=== PATIENT | male | born 1945 | race Caucasian/White ===

== ENCOUNTER 2017-02-13 13:17 | Outpatient (CLI) | payer MEDICARE, OTHER ==
[~2017-02-13] VITALS: Ht 180.3 cm; Wt 109.7 kg
[~2017-02-13 13:17] MED LIST: ACET325T49 PO; DOCU-143 PO; Docusate Sodium PO; ENOX30DI4 SC; IPRA3AMP INH; LACT20SO2 PO; Multivitamins/Minerals Therap PO; OXYC-471 PO; PANT40SU PO; POLY17PO23 PO; POLY17PO6 PO; SENN-20 PO
[2017-02-14] MEDS ORDERED: DOCU100C37 PO (16:18)
[2017-02-14] MEDS ORDERED: ACET-93 PO (16:18)
== END 2017-02-13 14:47 ==
LOC: PREOP 13:17
PROVIDERS: ATTEND Orthopaedic Surgery
DX: Z01.818 Encounter for other preprocedural examination (principal)

== ENCOUNTER 2017-02-14 09:48 | Day surgery (SDC) | payer MEDICARE, OTHER ==
[~2017-02-14] VITALS: Ht 180.3 cm; Wt 109.7 kg
--- NOTE | 2017-02-14 09:15 | HISTORY AND PHYSICAL ---
This will be for 24-hour observation on 02/14/2017 for left knee arthroscopy. HISTORY: The patient is a 71-year-old gentleman who underwent a left total knee arthroplasty 11 months ago. He had been doing well until the last few months when he began experiencing increasing pain. He presented to the office on 02/12/2017 with a slightly warm knee and pain with motion. His active range of motion is approximately 90 degrees of flexion but he reports the pain has been progressive. He denies any systemic illnesses but had had a tooth abscess which required extraction the 04 of October. He was treated with antibiotics at that point, but otherwise has had no illnesses requiring antibiotic treatment. He denies fever, chills, or night sweats. He reports increasing pain. He underwent laboratory assessment which revealed a white blood cell count. His ESR was slightly elevated at 23. His C-reactive protein was 2.1. An aspirate was obtained of the knee which demonstrated bloody fluid. The white count on differential with only 2000. His Gram stain revealed no organisms was scant white blood cells. No crystals were seen in the fluid either. Due to increasing pain; however, it was recommended that the patient undergo irrigation and debridement, possible polyethylene exchange and possible hardware removal. This was counseled to the patient and his family. They understand and wish to proceed. REVIEW OF SYSTEMS: As above. PAST MEDICAL HISTORY: Head injury. MEDICATIONS: Tylenol. ALLERGIES: No known drug allergies. PRIMARY CARE PROVIDER: Dr. Rinaldi. FAMILY HISTORY: Noncontributory. SOCIAL HISTORY: The patient is a former smoker with a 30 pack-year history. Denies alcohol use. PHYSICAL EXAMINATION: The patient's well-developed, well-nourished, in no acute distress. HEENT: Normocephalic, atraumatic. Pupils are equal, round, and reactive to light. Oropharynx is clear. NECK: Supple with no lymphadenopathy. LUNGS: Clear to auscultation bilaterally. HEART: Regular rate and rhythm. ABDOMEN: Soft, nontender, nondistended. EXTREMITY EXAM: Left knee demonstrates slight effusion. There was mild warmth. No erythema. The incision is well healed. He has pain with active and passive knee range of motion, actively his range of motion is 0/0/90. He has no pain with hip motion. negative straight leg raise. IMPRESSION: Possible low-grade left total knee arthroplasty, septic arthritis. PLAN: Left knee irrigation and debridement arthroscopically versus open with possible hardware removal. The risks, benefits, options, ramifications and recovery were discussed at length with the patient and his family. They understand and wish to proceed. Job ID: [id number] Dictated Date: 02/13/2017 12:35:17 Act Tutor Date: 02/14/2017 09:01:53/abilio
--- OUTSIDE RECORDS SUMMARY | 2017-02-14 09:52 | XMS REPORT | Continuity of Care Document ---
Author Author [facility] Organization [facility] Address Unknown Phone Unavailable Allergies Active Description Code Type Severity Reaction Onset Reported/Identified Relationship to Patient Clinical Status Yes No Known Drug Allergies [id number] Drug Allergy Unknown N/ A 03/22/2016 Medications Problems Date Dx Coded Attending Type Code Diagnosis Diagnosed By 04/03/2012 Ot 780.2 SYNCOPE AND COLLAPSE 07/12/2014 Ot 780.2 07/12/2014 Ot 780.2 07/12/2014 Ot 780.2 07/15/2014 JESÚS CALABRESE MD Ot 276.51 DEHYDRATION 07/15/2014 JESÚS CALABRESE MD Ot 558.9 NONINF GASTROENTERIT NEC 07/15/2014 JESÚS CALABRESE MD Ot 560.32 FECAL IMPACTION 07/15/2014 JESÚS CALABRESE MD Ot 560.9 INTESTINAL OBSTRUCT NOS 07/15/2014 JESÚS CALABRESE MD Ot 793.11 SOLITARY PULMONARY NODULE 07/15/2014 JESÚS CALABRESE MD Ot V03.82 PROPHYLACTIC VACC AGAINST STREPTOCOCCUS 07/15/2014 JESÚS CALABRESE MD Ot V04.81 ND FOR PROPHYLACTIC VACCIN AND INOCULATI 07/15/2014 JESÚS CALABRESE MD Ot V12.59 HX-CIRCULATORY SYST DIS,NEC 07/15/2014 JESÚS CALABRESE MD Ot V15.52 PERSONAL HISTORY OF TRAUMATIC BRAIN INJU 07/15/2014 JESÚS CALABRESE MD Ot V15.82 HISTORY OF TOBACCO USE 08/19/2014 Ot 780.2 09/14/2014 Ot 780.2 10/20/2014 Ot 211.3 BENIGN NEOPLASM LG BOWEL 10/20/2014 Ot V76.51 SCREEN MAL NEOP-COLON 03/13/2016 Ot 780.2 SYNCOPE AND COLLAPSE 03/13/2016 Ot V72.84 EXAM PRE-OPERATIVE NOS 03/15/2016 NIA BULLARD, POP [place] Ot M17.12 UNILATERAL PRIMARY OSTEOARTHRITIS, LEFT 03/15/2016 POP KRAMER MD Ot R53.83 OTHER FATIGUE 03/15/2016 POP KRAMER MD Ot Z01.810 ENCOUNTER FOR PREPROCEDURAL CARDIOVASCUL 03/15/2016 POP KRAMER MD Ot Z01.811 ENCOUNTER FOR PREPROCEDURAL RESPIRATORY 03/15/2016 POP KRAMER MD Ot Z01.812 ENCOUNTER FOR PREPROCEDURAL LABORATORY E 03/15/2016 POP KRAMER MD Ot Z11.2 ENCOUNTER FOR SCREENING FOR OTHER BACTER 03/15/2016 POP KRAMER MD Ot Z01.812 ENCOUNTER FOR PREPROCEDURAL LABORATORY E 03/16/2016 POP KRAMER MD Ot M17.12 UNILATERAL PRIMARY OSTEOARTHRITIS, LEFT 03/16/2016 POP KRAMER MD Ot R53.83 OTHER FATIGUE 03/16/2016 POP KRAMER MD Ot Z01.810 ENCOUNTER FOR PREPROCEDURAL CARDIOVASCUL 03/16/2016 POP KRAMER MD Ot Z01.811 ENCOUNTER FOR PREPROCEDURAL RESPIRATORY 03/16/2016 POP KRAMER MD Ot Z01.812 ENCOUNTER FOR PREPROCEDURAL LABORATORY E 03/16/2016 POP KRAMER MD Ot Z11.2 ENCOUNTER FOR SCREENING FOR OTHER BACTER 03/20/2016 Ot 780.2 SYNCOPE AND COLLAPSE 03/20/2016 Ot V72.84 EXAM PRE-OPERATIVE NOS 03/22/2016 Ot 780.2 SYNCOPE AND COLLAPSE 03/24/2016 POP KRAMER MD Ot E66.9 OBESITY, UNSPECIFIED 03/24/2016 POP KRAMER MD Ot I10 ESSENTIAL (PRIMARY) HYPERTENSION 03/24/2016 POP KRAMER MD Ot J44.9 CHRONIC OBSTRUCTIVE PULMONARY DISEASE, U 03/24/2016 POP KRAMER MD Ot M17.12 UNILATERAL PRIMARY OSTEOARTHRITIS, LEFT 03/24/2016 POP KRAMER MD Ot R33.9 RETENTION OF URINE, UNSPECIFIED 03/24/2016 POP KRAMER MD Ot R79.0 ABNORMAL LEVEL OF BLOOD MINERAL 03/24/2016 POP KRAMER MD Ot Z68.36 BODY MASS INDEX (BMI) 36.0-36.9, ADULT 03/24/2016 POP KRAMER MD Ot Z87.19 PERSONAL HISTORY OF OTHER DISEASES OF TH 03/24/2016 POP KRAMER MD, Ot Z87.820 PERSONAL HISTORY OF TRAUMATIC BRAIN INJU 03/24/2016 POP KRAMER MD Ot Z87.891 PERSONAL HISTORY OF NICOTINE DEPENDENCE 04/01/2016 BUCK SAUCEDO MD Ot G47.33 OBSTRUCTIVE SLEEP APNEA (ADULT) (PEDIATR 04/01/2016 BUCK SAUCEDO MD Ot J44.9 CHRONIC OBSTRUCTIVE PULMONARY DISEASE, U 04/01/2016 BUCK SAUCEDO MD Ot K59.09 OTHER CONSTIPATION 04/01/2016 BUCK SAUCEDO MD Ot R41.89 OTH SYMPTOMS AND SIGNS W COGNITIVE FUNCT 04/01/2016 BUCK SAUCEDO MD Ot S06.5X9S TRAUM SUBDR HEM W LOC OF UNSP DURATION, 04/01/2016 BUCK SAUCEDO MD Ot Z47.1 AFTERCARE FOLLOWING JOINT REPLACEMENT ROBISON 04/01/2016 BUCK SAUCEDO MD Ot Z87.891 PERSONAL HISTORY OF NICOTINE DEPENDENCE 04/01/2016 BUCK SAUCEDO MD Ot Z96.652 PRESENCE OF LEFT ARTIFICIAL KNEE JOINT 04/04/2016 BUCK SAUCEDO MD Ot G47.33 OBSTRUCTIVE SLEEP APNEA (ADULT) (PEDIATR 04/04/2016 BUCK SAUCEDO MD Ot J44.9 CHRONIC OBSTRUCTIVE PULMONARY DISEASE, U 04/04/2016 BUCK SAUCEDO MD Ot K59.09 OTHER CONSTIPATION 04/04/2016 BUCK SAUCEDO MD Ot R41.89 OTH SYMPTOMS AND SIGNS W COGNITIVE FUNCT 04/04/2016 BUCK SAUCEDO MD Ot S06.5X9S TRAUM SUBDR HEM W LOC OF UNSP DURATION, 04/04/2016 BUCK SAUCEDO MD Ot Z47.1 AFTERCARE FOLLOWING JOINT REPLACEMENT ROBISON 04/04/2016 BUCK SAUCEDO MD Ot Z87.891 PERSONAL HISTORY OF NICOTINE DEPENDENCE 04/04/2016 BUCK SAUCEDO MD Ot Z96.652 PRESENCE OF LEFT ARTIFICIAL KNEE JOINT 04/04/2016 BUCK SAUCEDO MD Ot G47.33 OBSTRUCTIVE SLEEP APNEA (ADULT) (PEDIATR 04/04/2016 BUCK SAUCEDO MD Ot J44.9 CHRONIC OBSTRUCTIVE PULMONARY DISEASE, U 04/04/2016 BUCK SAUCEDO MD Ot K59.09 OTHER CONSTIPATION 04/04/2016 BUCK SAUCEDO MD Ot R41.89 OTH SYMPTOMS AND SIGNS W COGNITIVE FUNCT 04/04/2016 BUCK SAUCEDO MD Ot S06.5X9S TRAUM SUBDR HEM W LOC OF UNSP DURATION, 04/04/2016 BUCK SAUCEDO MD Ot Z47.1 AFTERCARE FOLLOWING JOINT REPLACEMENT ROBISON 04/04/2016 BUCK SAUCEDO MD Ot Z87.891 PERSONAL HISTORY OF NICOTINE DEPENDENCE 04/04/2016 BUCK SAUCEDO MD Ot Z96.652 PRESENCE OF LEFT ARTIFICIAL KNEE JOINT 04/04/2016 BUCK SAUCEDO MD Ot G47.33 OBSTRUCTIVE SLEEP APNEA (ADULT) (PEDIATR 04/04/2016 BUCK SAUCEDO MD Ot J44.9 CHRONIC OBSTRUCTIVE PULMONARY DISEASE, U 04/04/2016 BUCK SAUCEDO MD Ot K59.09 OTHER CONSTIPATION 04/04/2016 BUCK SAUCEDO MD Ot R41.89 OTH SYMPTOMS AND SIGNS W COGNITIVE FUNCT 04/04/2016 BCUK SAUCEDO MD Ot S06.5X9S TRAUM SUBDR HEM W LOC OF UNSP DURATION, 04/04/2016 BUCK SAUCEDO MD Ot Z47.1 AFTERCARE FOLLOWING JOINT REPLACEMENT ROBISON 04/04/2016 BUCK SAUCEDO MD Ot Z87.891 PERSONAL HISTORY OF NICOTINE DEPENDENCE 04/04/2016 BUCK SAUCEDO MD Ot Z96.652 PRESENCE OF LEFT ARTIFICIAL KNEE JOINT 04/07/2016 BUCK SAUCEDO MD Ot G47.33 OBSTRUCTIVE SLEEP APNEA (ADULT) (PEDIATR 04/07/2016 BUCK SAUCEDO MD Ot J44.9 CHRONIC OBSTRUCTIVE PULMONARY DISEASE, U 04/07/2016 BUCK SAUCEDO MD Ot K59.09 OTHER CONSTIPATION 04/07/2016 BUCK SAUCEDO MD Ot R41.89 OTH SYMPTOMS AND SIGNS W COGNITIVE FUNCT 04/07/2016 BUCK SAUCEDO MD Ot S06.5X9S TRAUM SUBDR HEM W LOC OF UNSP DURATION, 04/07/2016 BUCK SAUCEDO MD Ot Z47.1 AFTERCARE FOLLOWING JOINT REPLACEMENT ROBISON 04/07/2016 BUCK SAUCEDO MD Ot Z87.891 PERSONAL HISTORY OF NICOTINE DEPENDENCE 04/07/2016 BUCK SAUCEDO MD Ot Z96.652 PRESENCE OF LEFT ARTIFICIAL KNEE JOINT 04/07/2016 BUCK SAUCEDO MD Ot D64.9 ANEMIA, UNSPECIFIED 04/07/2016 BUCK SAUCEDO MD Ot G47.33 OBSTRUCTIVE SLEEP APNEA (ADULT) (PEDIATR 04/07/2016 BUCK SAUCEDO MD, Ot J44.9 CHRONIC OBSTRUCTIVE PULMONARY DISEASE, U 04/07/2016 BUCK SAUCEDO MD, Ot K56.60 UNSPECIFIED INTESTINAL OBSTRUCTION 04/07/2016 BUCK SAUCEDO MD, Ot K59.09 OTHER CONSTIPATION 04/07/2016 BUCK SAUCEDO MD, Ot R41.89 OTH SYMPTOMS AND SIGNS W COGNITIVE FUNCT 04/07/2016 BUCK SAUCEDO MD, Ot S06.5X9S TRAUM SUBDR HEM W LOC OF UNSP DURATION, 04/07/2016 BUCK SAUCEDO MD, Ot Z47.1 AFTERCARE FOLLOWING JOINT REPLACEMENT ROBISON 04/07/2016 BUCK SAUCEDO MD, Ot Z87.891 PERSONAL HISTORY OF NICOTINE DEPENDENCE 04/07/2016 BUCK SAUCEDO MD, Ot Z96.652 PRESENCE OF LEFT ARTIFICIAL KNEE JOINT 04/26/2016 Ot 780.2 SYNCOPE AND COLLAPSE 04/26/2016 Ot V72.84 EXAM PRE-OPERATIVE NOS Procedures Code Description Performed By Performed On 96.38 07/12/2014 [id number] 03/22/2016 Results Test Result Range Complete blood count (CBC) with automated white blood cell (WBC) differential - 03/15/16 10:35 Blood leukocytes automated count (number/volume) 9.3 10*3/ uL 4.3-11.0 Blood erythrocytes automated count (number/volume) 4.88 10*6 /uL 4.35-5.85 Venous blood hemoglobin measurement (mass/volume) 14.0 g/dL 13.3-17.7 Blood hematocrit (volume fraction) 42 % 40-54 Automated erythrocyte mean corpuscular volume 86 [foz_us] 80-99 Automated erythrocyte mean corpuscular hemoglobin (mass per erythrocyte) 29 pg 25-34 Automated erythrocyte mean corpuscular hemoglobin concentration measurement ( mass/volume) 33 g/dL 32-36 Automated erythrocyte distribution width ratio 15.5 % 10.0-14.5 Automated blood platelet count (count/volume) 259 10*3/uL 130-400 Automated blood platelet mean volume measurement 11.9 [foz_ us] 7.4-10.4 Automated blood neutrophils/100 leukocytes 65 % 42-75 Automated blood lymphocytes/100 leukocytes 24 % 12-44 Blood monocytes/100 leukocytes 11 % 0-12 Automated blood eosinophils/100 leukocytes 1 % 0-10 Automated blood basophils/100 leukocytes 1 % 0-10 Blood neutrophils automated count (number/volume) 6.0 10*3 1.8-7.8 Blood lymphocytes automated count (number/volume) 2.2 10*3 1.0-4.0 Blood monocytes automated count (number/volume) 1.0 10*3 0.0-1.0 Automated eosinophil count 0.1 10*3/uL 0.0-0.3 Automated blood basophil count (count/volume) 0.1 10*3/uL 0.0-0.1 Complete urinalysis with reflex to culture - 03/15/16 10:35 Urine color determination YELLOW NRG Urine clarity determination CLEAR NRG Urine pH measurement by test strip 5 5- 9 Specific gravity of urine by test strip 1.020 1.016-1.022 Urine protein assay by test strip, semi-quantitative NEGATIVE NEGATIVE Urine glucose detection by automated test strip NEGATIVE NEGATIVE Erythrocytes detection in urine sediment by light microscopy NEGATIVE NEGATIVE Urine ketones detection by automated test strip NEGATIVE NEGATIVE Urine nitrite detection by test strip NEGATIVE NEGATIVE Urine total bilirubin detection by test strip NEGATIVE NEGATIVE Urine urobilinogen measurement by automated test strip (mass/volume) NORMAL NORMAL Urine leukocyte esterase detection by dipstick 1+ NEGATIVE Automated urine sediment erythrocyte count by microscopy (number/high power field) NONE NRG Automated urine sediment leukocyte count by microscopy (number/high power field ) [HPF] NRG Bacteria detection in urine sediment by light microscopy NEGATIVE NRG Squamous epithelial cells detection in urine sediment by light microscopy RARE NRG Crystals detection in urine sediment by light microscopy NONE NRG Casts detection in urine sediment by light microscopy NONE NRG Mucus detection in urine sediment by light microscopy NEGATIVE NRG Complete urinalysis with reflex to culture NO NRG PT panel in platelet poor plasma by coagulation assay - 03/15/16 10:35 Prothrombin time (PT) in platelet poor plasma by coagulation assay 13.2 s 12.2-14.7 INR in platelet poor plasma or blood by coagulation assay 1.0 0.8-1.4 Comprehensive metabolic panel - 03/15/16 10:35 Serum or plasma sodium measurement (moles/volume) 138 mmol/ L 135-145 Serum or plasma potassium measurement (moles/volume) 4.1 mmol/L 3.6-5.0 Serum or plasma chloride measurement (moles/volume) 109 mmol /L 98-107 Carbon dioxide 21 mmol/L 21-32 Serum or plasma anion gap determination (moles/volume) 8 mmol/L 5-14 Serum or plasma urea nitrogen measurement (mass/volume) 18 mg/dL 7-18 Serum or plasma creatinine measurement (mass/volume) 1.18 mg /dL 0.60-1.30 Serum or plasma urea nitrogen/creatinine mass ratio 15 NRG Serum or plasma creatinine measurement with calculation of estimated glomerular filtration rate > NRG Serum or plasma glucose measurement (mass/volume) 91 mg/dL 70-105 Serum or plasma calcium measurement (mass/volume) 8.8 mg/dL 8.5-10.1 Serum or plasma total bilirubin measurement (mass/volume) 0.4 mg/dL 0.1-1.0 Serum or plasma alkaline phosphatase measurement (enzymatic activity/volume) 92 U/L 40-136 Serum or plasma aspartate aminotransferase measurement (enzymatic activity/ volume) 16 U/L 5-34 Serum or plasma alanine aminotransferase measurement (enzymatic activity/volume ) 16 U/L 0-55 Serum or plasma protein measurement (mass/volume) 7.2 g/dL 6.4-8.2 Serum or plasma albumin measurement (mass/volume) 4.1 g/dL 3.2-4.5 Erythrocyte sedimentation rate by westergren method - 03/15/16 10:35 Erythrocyte sedimentation rate by westergren method 8 mm 0-30 Blood type T Indirect antibody screen panel - 03/15/16 10:35 ABO+Rh group AP NRG Blood group antibody screen NEGATIVE NRG Methicillin resistant Staphylococcus aureus (MRSA) screening culture - 10:35 Methicillin resistant Staphylococcus aureus (MRSA) screening culture NEG NRG Blood type T Indirect antibody screen panel - 03/22/16 06:20 ABO+Rh group AP NRG Transfusion band number [id number] NRG Blood group antibody screen NEGATIVE NRG Complete blood count (CBC) with automated white blood cell (WBC) differential - 03/23/16 04:55 Blood leukocytes automated count (number/volume) 10.0 10*3/ uL 4.3-11.0 Blood erythrocytes automated count (number/volume) 4.10 10*6 /uL 4.35-5.85 Venous blood hemoglobin measurement (mass/volume) 11.8 g/dL 13.3-17.7 Blood hematocrit (volume fraction) 36 % 40-54 Automated erythrocyte mean corpuscular volume 89 [foz_us] 80-99 Automated erythrocyte mean corpuscular hemoglobin (mass per erythrocyte) 29 pg 25-34 Automated erythrocyte mean corpuscular hemoglobin concentration measurement ( mass/volume) 33 g/dL 32-36 Automated erythrocyte distribution width ratio 15.9 % 10.0-14.5 Automated blood platelet count (count/volume) 210 10*3/uL 130-400 Automated blood platelet mean volume measurement 11.8 [foz_ us] 7.4-10.4 Automated blood neutrophils/100 leukocytes 71 % 42-75 Automated blood lymphocytes/100 leukocytes 12 % 12-44 Blood monocytes/100 leukocytes 18 % 0-12 Automated blood eosinophils/100 leukocytes 0 % 0-10 Automated blood basophils/100 leukocytes 0 % 0-10 Blood neutrophils automated count (number/volume) 7.1 10*3 1.8-7.8 Blood lymphocytes automated count (number/volume) 1.2 10*3 1.0-4.0 Blood monocytes automated count (number/volume) 1.8 10*3 0.0-1.0 Automated eosinophil count 0.0 10*3/uL 0.0-0.3 Automated blood basophil count (count/volume) 0.0 10*3/uL 0.0-0.1 Comprehensive metabolic panel - 03/23/16 04:55 Serum or plasma sodium measurement (moles/volume) 136 mmol/ L 135-145 Serum or plasma potassium measurement (moles/volume) 4.2 mmol/L 3.6-5.0 Serum or plasma chloride measurement (moles/volume) 106 mmol /L 98-107 Carbon dioxide 22 mmol/L 21-32 Serum or plasma anion gap determination (moles/volume) 8 mmol/L 5-14 Serum or plasma urea nitrogen measurement (mass/volume) 16 mg/dL 7-18 Serum or plasma creatinine measurement (mass/volume) 1.07 mg /dL 0.60-1.30 Serum or plasma urea nitrogen/creatinine mass ratio 15 NRG Serum or plasma creatinine measurement with calculation of estimated glomerular filtration rate > NRG Serum or plasma glucose measurement (mass/volume) 115 mg/dL 70-105 Serum or plasma calcium measurement (mass/volume) 8.1 mg/dL 8.5-10.1 Serum or plasma total bilirubin measurement (mass/volume) 0.8 mg/dL 0.1-1.0 Serum or plasma alkaline phosphatase measurement (enzymatic activity/volume) 77 U/L 40-136 Serum or plasma aspartate aminotransferase measurement (enzymatic activity/ volume) 16 U/L 5-34 Serum or plasma alanine aminotransferase measurement (enzymatic activity/volume ) 10 U/L 0-55 Serum or plasma protein measurement (mass/volume) 6.4 g/dL 6.4-8.2 Serum or plasma albumin measurement (mass/volume) 3.6 g/dL 3.2-4.5 Serum or plasma iron measurement (mass/volume) - 03/23/16 04:55 Serum or plasma iron measurement (mass/volume) 28 ug/dL 50-175 Complete blood count (CBC) with automated white blood cell (WBC) differential - 03/24/16 06:10 Blood leukocytes automated count (number/volume) 10.9 10*3/ uL 4.3-11.0 Blood erythrocytes automated count (number/volume) 3.82 10*6 /uL 4.35-5.85 Venous blood hemoglobin measurement (mass/volume) 11.0 g/dL 13.3-17.7 Blood hematocrit (volume fraction) 34 % 40-54 Automated erythrocyte mean corpuscular volume 88 [foz_us] 80-99 Automated erythrocyte mean corpuscular hemoglobin (mass per erythrocyte) 29 pg 25-34 Automated erythrocyte mean corpuscular hemoglobin concentration measurement ( mass/volume) 33 g/dL 32-36 Automated erythrocyte distribution width ratio 15.8 % 10.0-14.5 Automated blood platelet count (count/volume) 196 10*3/uL 130-400 Automated blood platelet mean volume measurement 12.1 [foz_ us] 7.4-10.4 Automated blood neutrophils/100 leukocytes 68 % 42-75 Automated blood lymphocytes/100 leukocytes 14 % 12-44 Blood monocytes/100 leukocytes 17 % 0-12 Automated blood eosinophils/100 leukocytes 1 % 0-10 Automated blood basophils/100 leukocytes 0 % 0-10 Blood neutrophils automated count (number/volume) 7.4 10*3 1.8-7.8 Blood lymphocytes automated count (number/volume) 1.6 10*3 1.0-4.0 Blood monocytes automated count (number/volume) 1.8 10*3 0.0-1.0 Automated eosinophil count 0.1 10*3/uL 0.0-0.3 Automated blood basophil count (count/volume) 0.0 10*3/uL 0.0-0.1 Comprehensive metabolic panel - 03/24/16 06:10 Serum or plasma sodium measurement (moles/volume) 135 mmol/ L 135-145 Serum or plasma potassium measurement (moles/volume) 3.8 mmol/L 3.6-5.0 Serum or plasma chloride measurement (moles/volume) 105 mmol /L 98-107 Carbon dioxide 22 mmol/L 21-32 Serum or plasma anion gap determination (moles/volume) 8 mmol/L 5-14 Serum or plasma urea nitrogen measurement (mass/volume) 12 mg/dL 7-18 Serum or plasma creatinine measurement (mass/volume) 0.96 mg /dL 0.60-1.30 Serum or plasma urea nitrogen/creatinine mass ratio 13 NRG Serum or plasma creatinine measurement with calculation of estimated glomerular filtration rate > NRG Serum or plasma glucose measurement (mass/volume) 105 mg/dL 70-105 Serum or plasma calcium measurement (mass/volume) 8.2 mg/dL 8.5-10.1 Serum or plasma total bilirubin measurement (mass/volume) 0.9 mg/dL 0.1-1.0 Serum or plasma alkaline phosphatase measurement (enzymatic activity/volume) 75 U/L 40-136 Serum or plasma aspartate aminotransferase measurement (enzymatic activity/ volume) 18 U/L 5-34 Serum or plasma alanine aminotransferase measurement (enzymatic activity/volume ) 16 U/L 0-55 Serum or plasma protein measurement (mass/volume) 5.9 g/dL 6.4-8.2 Serum or plasma albumin measurement (mass/volume) 3.3 g/dL 3.2-4.5 Complete blood count (CBC) with automated white blood cell (WBC) differential - 04/01/16 15:10 Blood leukocytes automated count (number/volume) 13.4 10*3/ uL 4.3-11.0 Blood erythrocytes automated count (number/volume) 4.31 10*6 /uL 4.35-5.85 Venous blood hemoglobin measurement (mass/volume) 12.4 g/dL 13.3-17.7 Blood hematocrit (volume fraction) 38 % 40-54 Automated erythrocyte mean corpuscular volume 88 [foz_us] 80-99 Automated erythrocyte mean corpuscular hemoglobin (mass per erythrocyte) 29 pg 25-34 Automated erythrocyte mean corpuscular hemoglobin concentration measurement ( mass/volume) 33 g/dL 32-36 Automated erythrocyte distribution width ratio 15.7 % 10.0-14.5 Automated blood platelet count (count/volume) 493 10*3/uL 130-400 Automated blood platelet mean volume measurement 10.3 [foz_ us] 7.4-10.4 Automated blood neutrophils/100 leukocytes 81 % 42-75 Automated blood lymphocytes/100 leukocytes 8 % 12-44 Blood monocytes/100 leukocytes 11 % 0-12 Automated blood eosinophils/100 leukocytes 0 % 0-10 Automated blood basophils/100 leukocytes 0 % 0-10 Blood neutrophils automated count (number/volume) 10.8 10*3 1.8-7.8 Blood lymphocytes automated count (number/volume) 1.1 10*3 1.0-4.0 Blood monocytes automated count (number/volume) 1.5 10*3 0.0-1.0 Automated eosinophil count 0.0 10*3/uL 0.0-0.3 Automated blood basophil count (count/volume) 0.0 10*3/uL 0.0-0.1 Comprehensive metabolic panel - 04/01/16 15:10 Serum or plasma sodium measurement (moles/volume) 139 mmol/ L 135-145 Serum or plasma potassium measurement (moles/volume) 4.7 mmol/L 3.6-5.0 Serum or plasma chloride measurement (moles/volume) 102 mmol /L 98-107 Carbon dioxide 26 mmol/L 21-32 Serum or plasma anion gap determination (moles/volume) 11 mmol/L 5-14 Serum or plasma urea nitrogen measurement (mass/volume) 23 mg/dL 7-18 Serum or plasma creatinine measurement (mass/volume) 1.05 mg /dL 0.60-1.30 Serum or plasma urea nitrogen/creatinine mass ratio 22 NRG Serum or plasma creatinine measurement with calculation of estimated glomerular filtration rate > NRG Serum or plasma glucose measurement (mass/volume) 124 mg/dL 70-105 Serum or plasma calcium measurement (mass/volume) 9.6 mg/dL 8.5-10.1 Serum or plasma total bilirubin measurement (mass/volume) 0.8 mg/dL 0.1-1.0 Serum or plasma alkaline phosphatase measurement (enzymatic activity/volume) 86 U/L 40-136 Serum or plasma aspartate aminotransferase measurement (enzymatic activity/ volume) 27 U/L 5-34 Serum or plasma alanine aminotransferase measurement (enzymatic activity/volume ) 76 U/L 0-55 Serum or plasma protein measurement (mass/volume) 7.5 g/dL 6.4-8.2 Serum or plasma albumin measurement (mass/volume) 3.8 g/dL 3.2-4.5 Magnesium - 04/01/16 15:10 Magnesium 2.5 mg/dL 1.8-2.4 Whole blood basic metabolic panel - 04/02/16 06:14 Serum or plasma sodium measurement (moles/volume) 142 mmol/ L 135-145 Serum or plasma potassium measurement (moles/volume) 4.5 mmol/L 3.6-5.0 Serum or plasma chloride measurement (moles/volume) 107 mmol /L 98-107 Carbon dioxide 22 mmol/L 21-32 Serum or plasma anion gap determination (moles/volume) 13 mmol/L 5-14 Serum or plasma urea nitrogen measurement (mass/volume) 25 mg/dL 7-18 Serum or plasma creatinine measurement (mass/volume) 1.04 mg /dL 0.60-1.30 Serum or plasma urea nitrogen/creatinine mass ratio 24 NRG Serum or plasma creatinine measurement with calculation of estimated glomerular filtration rate > NRG Serum or plasma glucose measurement (mass/volume) 121 mg/dL 70-105 Serum or plasma calcium measurement (mass/volume) 8.8 mg/dL 8.5-10.1 Automated blood complete blood count (hemogram) panel - 04/02/16 06:14 Blood leukocytes automated count (number/volume) 13.6 10*3/ uL 4.3-11.0 Blood erythrocytes automated count (number/volume) 4.36 10*6 /uL 4.35-5.85 Venous blood hemoglobin measurement (mass/volume) 12.5 g/dL 13.3-17.7 Blood hematocrit (volume fraction) 38 % 40-54 Automated erythrocyte mean corpuscular volume 87 [foz_us] 80-99 Automated erythrocyte mean corpuscular hemoglobin (mass per erythrocyte) 29 pg 25-34 Automated erythrocyte mean corpuscular hemoglobin concentration measurement ( mass/volume) 33 g/dL 32-36 Automated erythrocyte distribution width ratio 15.7 % 10.0-14.5 Automated blood platelet count (count/volume) 228 10*3/uL 130-400 Automated blood platelet mean volume measurement 11.3 [foz_ us] 7.4-10.4 Complete blood count (CBC) with automated white blood cell (WBC) differential - 04/03/16 06:18 Blood leukocytes automated count (number/volume) 9.9 10*3/ uL 4.3-11.0 Blood erythrocytes automated count (number/volume) 3.79 10*6 /uL 4.35-5.85 Venous blood hemoglobin measurement (mass/volume) 11.0 g/dL 13.3-17.7 Blood hematocrit (volume fraction) 34 % 40-54 Automated erythrocyte mean corpuscular volume 90 [foz_us] 80-99 Automated erythrocyte mean corpuscular hemoglobin (mass per erythrocyte) 29 pg 25-34 Automated erythrocyte mean corpuscular hemoglobin concentration measurement ( mass/volume) 32 g/dL 32-36 Automated erythrocyte distribution width ratio 15.8 % 10.0-14.5 Automated blood platelet count (count/volume) 359 10*3/uL 130-400 Automated blood platelet mean volume measurement 11.0 [foz_ us] 7.4-10.4 Automated blood neutrophils/100 leukocytes 70 % 42-75 Automated blood lymphocytes/100 leukocytes 16 % 12-44 Blood monocytes/100 leukocytes 13 % 0-12 Automated blood eosinophils/100 leukocytes 1 % 0-10 Automated blood basophils/100 leukocytes 0 % 0-10 Blood neutrophils automated count (number/volume) 6.9 10*3 1.8-7.8 Blood lymphocytes automated count (number/volume) 1.6 10*3 1.0-4.0 Blood monocytes automated count (number/volume) 1.3 10*3 0.0-1.0 Automated eosinophil count 0.1 10*3/uL 0.0-0.3 Automated blood basophil count (count/volume) 0.0 10*3/uL 0.0-0.1 Comprehensive metabolic panel - 04/03/16 06:18 Serum or plasma sodium measurement (moles/volume) 143 mmol/ L 135-145 Serum or plasma potassium measurement (moles/volume) 4.0 mmol/L 3.6-5.0 Serum or plasma chloride measurement (moles/volume) 112 mmol /L 98-107 Carbon dioxide 21 mmol/L 21-32 Serum or plasma anion gap determination (moles/volume) 10 mmol/L 5-14 Serum or plasma urea nitrogen measurement (mass/volume) 25 mg/dL 7-18 Serum or plasma creatinine measurement (mass/volume) 0.96 mg /dL 0.60-1.30 Serum or plasma urea nitrogen/creatinine mass ratio 26 NRG Serum or plasma creatinine measurement with calculation of estimated glomerular filtration rate > NRG Serum or plasma glucose measurement (mass/volume) 88 mg/dL 70-105 Serum or plasma calcium measurement (mass/volume) 8.7 mg/dL 8.5-10.1 Serum or plasma total bilirubin measurement (mass/volume) 0.9 mg/dL 0.1-1.0 Serum or plasma alkaline phosphatase measurement (enzymatic activity/volume) 79 U/L 40-136 Serum or plasma aspartate aminotransferase measurement (enzymatic activity/ volume) 21 U/L 5-34 Serum or plasma alanine aminotransferase measurement (enzymatic activity/volume ) 48 U/L 0-55 Serum or plasma protein measurement (mass/volume) 6.5 g/dL 6.4-8.2 Serum or plasma albumin measurement (mass/volume) 3.3 g/dL 3.2-4.5 Serum or plasma phosphate measurement (mass/volume) - 04/03/16 06:18 Serum or plasma phosphate measurement (mass/volume) 3.1 mg/ dL 2.3-4.7 Magnesium - 04/03/16 06:18 Magnesium 2.5 mg/dL 1.8-2.4 Encounters ACCT No. Visit Date/Time Discharge Status Pt. Type Provider Facility Loc./Unit Complaint [id number] 03/24/2016 11:30:00 2015 14:18:00 DIS Inpatient BUCK SAUCEDO MD Via [facility] IRF LEFT KNEE OSTEOARTHRITIS [id number] 03/22/2016 05:58:00 2015 11:29:00 DIS Inpatient POP KRAMER MD [facility] 4TH LEFT KNEE OA [id number] 03/15/2016 09:47:00 2015 11:00:00 DIS Outpatient POP KRAMER MD [facility] PREOP LEFT KNEE OA [id number] 07/12/2014 14:04:00 2013 10:03:00 DIS Inpatient JESÚS CALABRESE MD [facility] 4TH SMALL BOWEL OBSTRUCTION [id number] 10/20/2014 11:50:00 Document Registration [id number] 09/29/2014 14:37:00 Document Registration [id number] 04/04/2012 09:00:00 Document Registration [id number] 01/04/2012 08:49:00 Document Registration
[2017-02-14 11:05] VITALS: BP 120/96
[2017-02-14] MEDS ORDERED: BUPIVACAINE 0.25% 30 ML (SENSORCAINE) VIAL ONE (11:05)
[2017-02-14] MEDS ORDERED: morphine PF (DURAMORPH) 10 MG/10 ML AMP ONE (11:05)
[2017-02-14] MEDS ORDERED: DEXAMETHASONE PF 10 MG/ML (DECADRON) VIAL ONE (11:06)
[2017-02-14] MEDS ORDERED: SEVOFLURANE (ULTANE) 15 ML INHAL SOLN ONE ×3 (11:06→12:20)
[2017-02-14] MEDS ORDERED: fentaNYL INJECTION 100 MCG/2 ML AMP ONE (11:06)
[2017-02-14] MEDS ORDERED: proPOfol 200 MG/20 ML (DIPRIVAN) VIAL IV ONE (11:06)
[2017-02-14] MEDS ORDERED: LIDOCAINE PF 2% 5 ML (XYLOCAINE) VIAL ONE (11:06)
[2017-02-14] MEDS ORDERED: ONDANSETRON 4 MG/2 ML (SDV) Z0FRAN ONE (11:06)
[2017-02-14] MEDS ORDERED: MIDAZOLAM 2 MG/2 ML (VERSED) VIAL ONE (11:07)
[2017-02-14] MEDS: LACTATED RINGERS 1,000 ML IV PRN ×2 (11:23→12:31)
--- NOTE | 2017-02-14 11:34 | Progress Note-Pre Operative ---
Pre-Operative Progress Note H&P Reviewed The H&P was reviewed, patient examined and no changes noted. Date Seen by Provider: Feb 14, 2017 Time Seen by Provider: 11:33 Date H&P Reviewed: Feb 14, 2017 Time H&P Reviewed: 11:33 Pre-Operative Diagnosis: left knee pain status total knee arthroplasty POP KRAMER MD Feb 14, 2017 11:34
--- NOTE | 2017-02-14 11:36 | Progress Note-Post Operative ---
Post-Operative Progess Note Surgeon (s)/Doper Operator (s) Surgeon POP KRAMER MD Doper Operator: Rashad Botello Pre-Operative Diagnosis left knee pain status total knee arthroplasty Post-Operative Diagnosis left knee adhesions status post total knee arthroplasty Procedure & Operative Findings Date of Procedure 02/14/17 Procedure Performed/Findings left knee arthroscopic lysis of adhesions Anesthesia Type GETA Estimated Blood Loss Estimated blood loss (mL): minimal Specimens/Packing Specimens Removed cultures sent Packing: none POP KRAMER MD Feb 14, 2017 11:36
[2017-02-14] MEDS ORDERED: ACETAMINOPHEN 325 MG TABLET/CAPLET (TYLENOL) PO PRN (12:00)
[2017-02-14] MEDS ORDERED: ONDANSETRON 4 MG/2 ML (SDV) Z0FRAN IVP PRN ×2 (12:00→12:45)
[2017-02-14] MEDS ORDERED: morphine INJ 4 MG/ML 1 ML (VIAL/SYRINGE) IVP PRN (12:00)
[2017-02-14] MEDS ORDERED: ceFAZolin 1,000 MG (ANCEF) VIAL ONE (12:19)
[2017-02-14] MEDS ORDERED: LACTATED RINGERS 1,000 ML IV ONE ×2 (12:20)
[2017-02-14] MEDS ORDERED: fentaNYL INJECTION 100 MCG/2 ML AMP IVP PRN (12:45)
[2017-02-14] MEDS ORDERED: morphine INJ 10 MG/ML 1ML (SYR OR VIAL) IVP PRN (12:45)
[2017-02-14 13:40] VITALS: BP 126/80
[2017-02-14] MEDS ORDERED: CATHETER FLUSH 10 ML SYR IV PRN (14:30)
--- NOTE | 2017-02-14 15:31 | Physical Therapy Ortho Eval ---
PT Orthopedic Evaluation Type of Surgery Knee Scope septic arthritis Prior Level of Function Current Living Status: Alone Locomotion (Upon Admit): Independent Pt began using a FWW a few days ago due to knee pain Subjective Subjective Agrees to PT. Wants to get out of bed. Entry Into Home: Level Entry Motor Control Motor Control: Motor Control WNL ROM ROM: WFL, except focal deficit 0-15-90 degrees left knee. Strength Strength: WFL Transfer Pt is SB-CGa with transfers due to impulsivity and decreased safety awareness. Gait Gait Assistive Device: FWW Weight Bearing Restriction: Weight Bearing/Tolerated Summary/Comments Pt ambulated in/out of bathroom and and down the clark x 125 ft with FWW with CGA and skilled cues for sequencing and safety. Treatment Rendered Treatment: Therapeutic Exercises, Gait Train Exercise Instruction: Ankle Pumps, Other (LAQ and hip flexion) Assessment/Goals Goal Time Frame: Understands HEP: No Pt will benefit from an additional visits while hospitalized for gait progression and completion of ther ex. He will benefit from pictures of knee exercises to help him remember them once discharged. Plan Treatment Plan: Education, Gait, Safety, Therapeutic Exercise, Transfers Treatment Duration: 2-3 days Visits Per Week: 2-3 PT/Family Agrees to Plan: Yes Time Time In: 1430 Time Out: 1510 Total Billed Treatment Time: 40 Billed Treatment Time visit EVM 20 GT 20 PT/OT Therapy GCodes Therapy Functional Limitation: Physical Therapy Test(s)/Tool used to determine: Level of Assistance Scale Functional Limitation-Current Charge Code: MOBCUR Modifier: CJ Functional Limitation-Goal Charge Code: MOBGOAL Modifier: TONI ALEJO PT Feb 14, 2017 15:31
[2017-02-14 16:00] VITALS: BP 111/65
[2017-02-14] MEDS ORDERED: DOCU100C37 PO (16:18)
[2017-02-14] MEDS ORDERED: ACET-93 PO (16:18)
[2017-02-14 20:00] VITALS: BP 117/70
[2017-02-14] MEDS: ceFAZolin INJECTION 1,000 MG in NS (IVPB) 50 ML IV SCH (20:09)
[2017-02-15 00:14] VITALS: BP 129/63
[2017-02-15] MEDS: ceFAZolin INJECTION 1,000 MG in NS (IVPB) 50 ML IV SCH (03:30)
[2017-02-15] MEDS: oxyCODONE/APAP 5/325MG (PERCOCET 5) TABLET PO PRN ×2 (03:30→08:22)
[2017-02-15 04:38] VITALS: BP 116/63
--- NOTE | 2017-02-15 07:54 | Progress Note-Standard ---
Standard Progress Note Progress Notes/Assess & Plan Date Seen by Provider: Feb 15, 2017 Time Seen by Provider: 07:53 Progress/Assessment & Plan Pt feeling better Vital Signs Date Time Temp Pulse Resp B/P (MAP) Pulse Ox O2 Delivery O2 Flow Rate FiO2 02/15/17 04:38 97.8 78 16 116/63 97 Room Air 02/15/17 00:14 98.5 80 16 129/63 96 Room Air 02/14/17 20:00 97.8 80 20 117/70 95 Room Air 02/14/17 20:00 Room Air 02/14/17 16:00 97.9 82 24 111/65 96 Room Air 02/14/17 15:48 95 Room Air 02/14/17 13:40 95.3 76 20 126/80 98 Room Air 02/14/17 13:40 Room Air 02/14/17 11:05 98.5 82 16 120/96 96 Room Air I & O 02/15/17 07:00 Intake Total 2820 ml Output Total 100 ml Balance 2720 ml Laboratory Tests Test 02/15/17 06:38 Range/Units Hemoglobin 12.6 L 13.3-17.7 G/DL Hematocrit 39 L 40-54 % LLE--dressing intact. flexion 100. able to perform SLR s/p L knee arthroscopy doing well dc home fu sunday wbat with POP Lundberg MD Feb 15, 2017 07:54
[2017-02-15 08:00] VITALS: BP 120/83
--- NOTE | 2017-02-15 09:41 | Physical Therapy Daily Note ---
PT Daily Note-Current Subjective Patient is in recliner and agrees to PT. Patient states he is going home today. Pain Numeric Pain Scale: 5-Moderate Pain Location: Left Location Body Site: Knee Pain Description: Ache, Pressure Mental Status Patient Orientation: Normal For Age Transfers Functional [place] Measure 0=Not Assessed/NA 4=Minimal Assistance 1=Total Assistance 5=Supervision or Setup 2=Maximal Assistance 6=Modified [place] 3=Moderate Assistance 7=Complete IndependenceIRFPAI Quality Coding Scale 6 Independent with activity with or without an assistive device 5 Patient requires set up or clean up by helper. Patient completes activity by themselves 4 Supervision or touching assist (CGA). [place] provide cues , steadying assist 3 The helper provides less than half the effort to complete the activity 2 The helper provides more than half the effort to complete the activity 1 Dependent. The helper does all the effort to complete an activity 7 Patient refused to complete or attempt activity 9 The patient did not perform the activity before the current illness or injury 88 Not attempted due to Medical conditions or safety concerns Transfers (B, C, W/C) (FIM): 6 Scootin Sit to/from Stand: 6 Gait Training Gait (FIM): 6 Distance (FIM): 3=150 ft Distance: 250' Gait Level of Assist: 6 Gait Assistive Device: FWW antalgic, step to pattern Assessment Patient is currently at modified independent [facility] with all gross motor skills. Patient to dismiss to home on this date. PT Plan Treatment/Plan Treatment Plan: Discontinue PT, goals met Treatment Plan: Gait Treatment Duration: Feb 16, 2017 Frequency: 2 times per week Estimated Hrs Per Day: .25 hour per day Patient and/or Family Agrees t: Yes Time/GCodes Time In: 910 Time Out: 920 Total Billed Treatment Time: 10 Total Billed Treatment 1 visit GT 10 min PT/OT Therapy GCodes Therapy Functional Limitation: Physical Therapy Test(s)/Tool used to determine: Level of Assistance Scale Functional Limitation-Current Charge Code: MOBCUR Modifier: CJ Functional Limitation-Goal Charge Code: MOBGOAL Modifier: CI Functional Limitation-D/C Charge Codes: MOBDC Modifier: CI XAVI MENDEZ PT Feb 15, 2017 09:41
[2017-02-15 12:00] VITALS: BP 131/78
[2017-02-15] MEDS ORDERED: OXYC-471 PO (12:24)
--- NOTE | 2017-02-16 08:20 | OPERATIVE REPORT ---
PROCEDURE PHYSICIAN: POP KRAMER DATE OF PROCEDURE: 02/14/2017 PREOPERATIVE DIAGNOSES: Left knee pain, status post total knee arthroplasty. POSTOPERATIVE DIAGNOSIS: Left knee adhesions status post total knee arthroplasty. PROCEDURE: Left knee arthroscopic lysis of adhesions. SURGEON: Kali GRADUATE ENGINEER: Rashad Botello who assisted throughout the procedure and closed the incisions. ANESTHESIA: General endotracheal by Ángela Hdz CRNA. TOURNIQUET TIME: Not applicable. ESTIMATED BLOOD LOSS: Minimal. DRAINS: None. COMPLICATIONS: None. POSTOPERATIVE PLAN: Close following of cultures. Cultures were sent. The patient was transported to the recovery awake, in stable condition. STATEMENT OF MEDICAL NECESSITY: This is a 71-year-old gentleman who year ago underwent total knee arthroplasty. Over the last couple of months he reports increasing pain and swelling. He is an extremely poor historian but by his family he had an abscessed tooth in September which required extraction. He was treated with antibiotics at that time. He reports however that he has had no fever, chills, or night sweats. He presented to the office Sunday where he underwent an aspiration of bloody fluid obtained. His ESR was minimally elevated. His C-reactive protein was minimally elevated. His white blood cell count was normal. Cultures thus far have been negative and his cell count was 2000 white blood cells in his aspirate. The patient and his family were counseled that a tagged white blood cell bone scan could be obtained versus arthroscopy for assessment and examination under anesthesia and they elected to proceed with arthroscopy. Examination under anesthesia revealed range of motion of 0/0/120. There is 1+ varus laxity, no valgus laxity. Negative anterior and posterior drawer. His patella tracked well but had poor patellar mobility. Arthroscopic findings demonstrated no purulence. No abnormal synovial tissue was noted. There was mature scar noted throughout his anterior compartment extending into the medial gutter. No looseness at any of his components or inserts was noted. PROCEDURE: After risks and benefits of the procedure were discussed and questions were answered an informed consent was signed and placed on chart. The operative site was confirmed preoperative holding and initialed by the surgeon. The patient was then transported to the operating room and after adequate levels of general endotracheal anesthetic were obtained, a timeout was called confirming the operative site. The left lower extremity was prepped and draped in the usual sterile fashion after examination under anesthesia. The inferolateral portal was placed for the arthroscope under direct visualization and an inferior medial port was created. There was dense adhesion noted anteriorly. This was resected through the inferomedial portal. Cultures were sent from the joint fluid which revealed no purulence. The polyethylene insert was carefully probed with no looseness noted. The undersurface of the patella was probed with no loosening noted. The scope was redirected into the inferomedial portal and through the the inferolateral portal. The anterior lateral adhesions were resected. The knee was irrigated with 6 liters of fluid. The port sites were closed with 4-0 nylon in a simple interrupted fashion. A soft dressing was applied and the patient was transported to the recovery room, awake, in stable condition. Job ID: [id number] Dictated Date: 02/14/2017 12:51:44 Direct Marketing Intern Date: 02/16/2017 08:08:09 / arturo
== END 2017-02-15 13:00 | disposition home or self-care (01) ==
LOC: SDC 09:48 → 4TH 13:50 → SDC 02-15 13:00
PROVIDERS: ATTEND Orthopaedic Surgery
DX: M23.8X2 Other internal derangements of left knee (principal); Z96.652 Presence of left artificial knee joint; Z87.891 Personal history of nicotine dependence
CPT/HCPCS: 36415; 85014; 85018; 87070; 87075; 87081; 87205; 94664; 94760

== ENCOUNTER → 2017-03-20 | Outpatient (CLI) | payer MEDICARE, OTHER ==
[~2017-03-20] MED LIST changes: +ACET-93 PO; +DOCU100C37 PO
--- NOTE | 2017-03-20 13:54 | Diagnostic Imaging Report ---
EXAMINATION: Skull INDICATION: Previous trauma AP and lateral views were obtained. There are no prior studies available for comparison. The patient was scheduled to have an MRI exam today when he mentioned that he had previous skull surgery approximately 40 years ago. On this study, there is evidence of a prior left parietal craniotomy with numerous metallic sutures about the craniotomy site. There are also metallic sutures in the superolateral and inferomedial aspects of each orbit. The nature of these metallic sutures is not certain. We will attempt to find what type of material these metallic sutures are before the MRI exam is performed. There is no fracture or acute bony abnormality noted. The sinuses are generally clear. IMPRESSION: There are postsurgical changes with metallic sutures involving the orbits and the left parietal bone. The nature of the metallic sutures is not certain, but it would not be safe to proceed with the MRI exam until the nature of the sutures is known. The patient's previous records will be requested. Dictated by: Dictated on workstation # [id number]
== END ==
LOC: RAD 13:01
PROVIDERS: ATTEND Orthopaedic Surgery
DX: Z01.818 Encounter for other preprocedural examination (principal); M54.16 Radiculopathy, lumbar region
CPT/HCPCS: 70250

== ENCOUNTER → 2017-03-23 | Outpatient (CLI) | payer MEDICARE, OTHER ==
--- NOTE | 2017-03-23 17:25 | Diagnostic Imaging Report ---
PROCEDURE: CT lumbar spine without contrast. TECHNIQUE: Multiple contiguous axial images were obtained through the lumbar spine without the use of intravenous contrast. Sagittal and coronal reformations were then performed. INDICATION: Left lower extremity radiculopathy. COMPARISON: No priors. FINDINGS: Reconstruction views reveal normal lumbar body heights, aligned anatomically. No acute or suspicious endplate irregularity. The pedicles and pars appeared intact; no acute or chronic fracture. No paravertebral mass, hemorrhage, or fluid collection is found. T12-L1: This level and disc are unremarkable. L1-L2: Anteriorly oriented endplate osteophytes are present without stenosis. L2-L3: There is mild loss of disc height, endplate osteophytes, and circumferential disc bulge with some thickening of the ligamenta flava and facet arthrosis. The constellation of findings results in a mild degree of canal stenosis with suggestion of mild biforaminal narrowing. L3-L4: Bulging disc material, endplate osteophytes, ligamentous thickening, and facet arthrosis conspire to result in a mild degree of canal stenosis with mild biforaminal narrowing. L4-L5: Hypertrophic facet arthrosis and mild thickening of the ligamenta flava, disc bulge, and endplate osteophytes are present. The findings result in no substantial canal stenosis with [id number] right and mild left neural foraminal stenoses. L5-S1: No significant canal, foraminal, or recess stenosis. IMPRESSION: Multilevel lumbar spondylosis with predominantly mild degrees of canal and foraminal stenoses listed level by level above. Normal alignment. No acute or chronic fracture. Dictated by: Dictated on workstation # [id number]
== END ==
LOC: RAD 11:07
PROVIDERS: ATTEND Orthopaedic Surgery
DX: M47.816 Spondylosis without myelopathy or radiculopathy, lumbar region (principal)
CPT/HCPCS: 72131

== ENCOUNTER 2017-04-05 12:47 | Outpatient (RCR) | payer MEDICARE, OTHER | END 2017-05-05 | disposition home or self-care (01) | LOC: LAB 12:47 | PROVIDERS: ATTEND Internal Medicine | DX: Z11.2 Encounter for screening for other bacterial diseases (principal); B95.62 Methicillin resistant Staphylococcus aureus infection as the cause of diseases classified elsewhere | CPT/HCPCS: 87081 ==

== ENCOUNTER 2017-08-08 10:43 | Outpatient (RCR) | payer MEDICARE, OTHER | END 2017-09-17 12:03 | disposition home or self-care (01) | PROVIDERS: ATTEND Orthopaedic Surgery | DX: M54.16 Radiculopathy, lumbar region (principal) ==

== ENCOUNTER 2017-08-10 10:32 | Emergency (ER) | payer MEDICARE ==
[~2017-08-10] VITALS: Ht 185.4 cm; Wt 120.2 kg
--- NOTE | 2017-08-10 10:41 | ED Lower Extremity ---
General Chief Complaint: Lower Extremity Stated Complaint: FALL, INJ L KNEE Source: patient Exam Limitations: no limitations History of Present Illness Time seen by provider: 10:40 Initial Comments To ER per EMS from home with reports of a knee injury. Patient had a knee replacement on the left one year ago. He has chronic pain in this but has been doing physical therapy. He is followed 3 times over the past week because he states his knee gives out on him. He fell again today without landing on the knee but has recurrent pain. He has never noticed any deformity or popping sensations. His sister insisted he come be checked out today, he did not want to be evaluated himself but agreed to because of his sisters insistence. Onset: just prior to arrival Severity: moderate Pain/Injury Location: left knee Method of Injury: fell Allergies and Home Medications Allergies Coded Allergies: No Known Drug Allergies (Unverified , 02/13/17) Home Medications Acetaminophen 500 Mg Tablet, 1,000 MG PO Q6H PRN for PAIN-MILD, (Reported) TAKES 2 (500 MG) TABLETS Docusate Sodium 100 Mg Capsule, 100 MG PO DAILY, (Reported) Oxycodone HCl/Acetaminophen 1 Each Tablet, 1-2 TAB PO Q4H PRN for PAIN-MODERATE TO SEVERE, #40 Prescribed by: REMY DE LA O on 02/15/17 1224 Constitutional: see HPI EENTM: see HPI Respiratory: no symptoms reported Cardiovascular: no symptoms reported Genitourinary: no symptoms reported Musculoskeletal: see HPI Skin: no symptoms reported, change in hair/nails Past Dgstvgy-Oojxjy-Qttagt Hx Patient Social History Alcohol Beverage of Choice: Beer Type Used: Cigarettes Former Smoker, Quit: Mar 15, 2004 Recent Hopitalizations: No Immunizations Up To Date Tetanus Booster (TDap): Unknown PED Vaccines UTD: No Date of Pneumonia Vaccine: May 22, 2014 Date of Influenza Vaccine: May 22, 2014 Seasonal Allergies Seasonal Allergies: No Surgeries History of Surgeries: Yes (HEAD INJURY - BLOOD CLOT IN BRAIN REMOVED, HERNIA REPAIR) Surgeries: Joint Replacement, Orthopedic Respiratory History of Respiratory Disorde: No Cardiovascular 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) Neurological History of Neurological Disord: Yes (BRAIN INJURY IN 1978, HAD SEIZURES FOR A FEW WEEKS AFTER, NONE SINCE) Neurological Disorders: Traumatic Brain Injury Reproductive System Hx Reproductive Disorders: No Sexually Transmitted Disease: No HIV/AIDS: No Genitourinary History of Genitourinary Disor: No Gastrointestinal History of Gastrointestinal Di: Yes (HX OF BOWEL OBSTRUCTION IN 2014) Gastrointestinal Disorders: Obstructive Bowel, Chronic Constipation Musculoskeletal History of Musculoskeletal Dis: Yes Musculoskeletal Disorders: Arthritis Endocrine History of Endocrine Disorders: No HEENT History of HEENT Disorders: Yes (READING GLASSES) Loss of Vision: Bilateral Hearing Impairment: Hard of Hearing Cancer History of Cancer: No Psychosocial History of Psychiatric Problem: Yes Behavioral Health Disorders: Sleep Difficulties Integumentary History of Skin or Integumenta: No Blood Transfusions History of Blood Disorders: No Adverse Reaction to a Blood Tr: No Family Medical History Significant Family History: No Pertinent Family Hx Family Medial History: Arthritis 19 FATHER G8 SISTER Cataracts 19 FATHER Dementia 19 FATHER Hypertension 19 FATHER 19 MOTHER G8 BROTHER Myocardial infarction G8 BROTHER Thyroid disease 19 FATHER Physical Exam Vital Signs Vital Sign - Last 12Hours 08/10/17 10:43 Temp 98.2 Pulse 70 Resp 16 B/P (MAP) 156/102 (120) Pulse Ox 98 O2 Delivery Room Air Capillary Refill : General Appearance: WD/WN, no apparent distress HEENT: PERRL/EOMI, normal ENT inspection Neck: non-tender, full range of motion Respiratory: no respiratory distress, no accessory muscle use Gastrointestinal: non tender, soft Hips: bilateral hip non-tender, bilateral hip normal inspection, bilateral hip normal range of motion Legs: bilateral leg non-tender, bilateral leg normal inspection, bilateral leg normal range of motion Knees: left knee pain, left knee soft tissue tenderness, left knee other (no ecchymosis or deformity.) Ankles: bilateral ankle non-tender, bilateral ankle normal inspection, bilateral ankle normal range of motion Feet: bilateral foot non-tender, bilateral foot normal inspection, bilateral foot normal range of motion Neurologic/Psychiatric: alert, normal mood/affect, oriented x 3 Skin: normal color Comments Distal pulses are intact. Progress/Results/Core Measures Results/Orders Lab Results Laboratory Tests Test 08/10/17 11:56 08/10/17 12:25 Range/Units White Blood Count 10.8 4.3-11.0 10^3/uL Red Blood Count 4.60 4.35-5.85 10^6/uL Hemoglobin 13.2 L 13.3-17.7 G/DL Hematocrit 36 L 40-54 % Mean Corpuscular Volume 79 L 80-99 FL Mean Corpuscular Hemoglobin 29 25-34 PG Mean Corpuscular Hemoglobin Concent 36 32-36 G/DL Red Cell Distribution Width 15.4 H 10.0-14.5 % Platelet Count 206 130-400 10^3/uL Mean Platelet Volume 11.0 H 7.4-10.4 FL Neutrophils (%) (Auto) 80 H 42-75 % Lymphocytes (%) (Auto) 9 L 12-44 % Monocytes (%) (Auto) 10 0-12 % Eosinophils (%) (Auto) 0 0-10 % Basophils (%) (Auto) 0 0-10 % Neutrophils # (Auto) 8.7 H 1.8-7.8 X 10^3 Lymphocytes # (Auto) 1.0 1.0-4.0 X 10^3 Monocytes # (Auto) 1.1 H 0.0-1.0 X 10^3 Eosinophils # (Auto) 0.0 0.0-0.3 10^3/uL Basophils # (Auto) 0.0 0.0-0.1 10^3/uL Sodium Level 138 135-145 MMOL/L Potassium Level 4.5 3.6-5.0 MMOL/L Chloride Level 107 98-107 MMOL/L Carbon Dioxide Level 22 21-32 MMOL/L Anion Gap 9 5-14 MMOL/L Blood Urea Nitrogen 21 H 7-18 MG/DL Creatinine 1.11 0.60-1.30 MG/DL Estimat Glomerular Filtration Rate > 60 BUN/Creatinine Ratio 19 Glucose Level 99 70-105 MG/DL Calcium Level 9.1 8.5-10.1 MG/DL Total Bilirubin 0.5 0.1-1.0 MG/DL Aspartate Amino Transf (AST/SGOT) 22 5-34 U/L Alanine Aminotransferase (ALT/SGPT) 21 0-55 U/L Alkaline Phosphatase 101 40-136 U/L Total Protein 7.9 6.4-8.2 GM/DL Albumin 3.8 3.2-4.5 GM/DL My Orders Orders - LEONARDO DEWITT APRN Knee, Left, 3 Views (08/10/17 10:38) Hydrocodone/Apap 5/325 Tablet (Lortab 5 (08/10/17 10:45) Cbc With Automated Diff (08/10/17 11:49) Comprehensive Metabolic Panel (08/10/17 11:49) Ua Culture If Indicated (08/10/17 11:49) Ribs/Unilateral With Chest (08/10/17 11:49) Medications Given in ED Current Medications Medications Dose Ordered Sig/Caron Route Start Time Stop Time Status Last Admin Dose Admin Acetaminophen/ Hydrocodone Bitart 1 tab ONCE ONCE PO 08/10/17 10:45 08/10/17 10:46 DC 08/10/17 11:35 1 TAB Vital Signs/I&O Vital Sign - Last 12Hours 08/10/17 08/10/17 10:43 11:35 Temp 98.2 98.2 Pulse 70 Resp 16 B/P (MAP) 156/102 (120) Pulse Ox 98 O2 Delivery Room Air Diagnostic Imaging Diagonstic Imaging: Xray Comments NAME: AURORA MARTINS MED REC#: [id number] PT STATUS: REG ER : 1945 PHYSICIAN: LEONARDO DEWITT APRN ADMIT DATE: 08/10/17/ER Draft Date of Exam:08/10/17 KNEE, LEFT, 3 VIEWS PATIENT HISTORY: Left knee swelling. TECHNIQUE: Three views of the left knee. COMPARISON: 03/22/2016. FINDINGS: There is a left total knee arthroplasty without hardware complication seen. Alignment appears normal. There is enthesopathy along the quadriceps patellar continuum, with calcification along the distal quadriceps. A small left knee joint effusion is present. There is heterotopic ossification at the posterior aspect of the tibial plateau. 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 This is stable since 2016. IMPRESSION: 1. Left total knee arthroplasty without hardware complication seen. There has been interval increased heterotopic ossification, enthesopathy and soft tissue calcification. 2. No acute fracture or dislocation. Small left knee joint effusion. Dictated on workstation # [id number] Dict: 08/10/17 1128 Trans: 08/10/17 1134 [facility] [id number] Interpreted by: JOSE MANNING MD Electronically signed by: NAME: AURORA MARTINS MED REC#: [id number] PT STATUS: REG ER : 1945 PHYSICIAN: LEONARDO DEWITT APRN ADMIT DATE: 08/10/17/ER Draft Date of Exam:08/10/17 RIBS/UNILATERAL WITH CHEST PATIENT HISTORY: Fall earlier today, pain in the right lateral ribs. TECHNIQUE: Frontal view of the chest, two views of the right ribs. COMPARISON: 03/15/2016. FINDINGS: Lung volumes are markedly low. There are interstitial opacities throughout the lungs bilaterally, which appear more pronounced, but may be due to low lung volumes. The cardiac silhouette is mildly prominent, likely related to technique. No pleural effusion or pneumothorax is seen. There is subtle cortical irregularity at the anterior aspect of the right eighth and ninth ribs, which may represent nondisplaced fractures. Degenerative changes are seen in the right acromioclavicular joint. There is sequela from remote injury of the distal left clavicle. IMPRESSION: 1. Subtle cortical irregularity at the anterior right eighth and ninth ribs, may represent nondisplaced fractures. 2. Markedly low lung volumes with increased interstitial opacities, which may be accentuated due to the hypoventilation. Dictated on workstation # [id number] Dict: 08/10/17 1236 Trans: 08/10/17 1242 [facility] [id number] Interpreted by: JOSE MANNING MD Electronically signed by: Departure Communication (Admissions) Progress Notes 1150- patient's niece and sister arrived. They insist something must be wrong and he should be admitted for the knee instability. He believes something medical as the cause of the falls. Patient now complains of right lateral chest pain tender to palpation that he may of injured during the fall. We will check labs and urine. Impression Impression: Primary Impression: Instability of left knee joint Additional Impression: Right rib fracture Disposition: 01 HOME, SELF-CARE Condition: Stable Departure-Patient Inst. Decision time for Depature: 11:37 Referrals: POP BASS MD (PCP) Primary Care Physician Patient Instructions: NO INSTRUCTIONS GIVEN Add. Discharge Instructions: 1. Follow-up with Dr. Bass. Call today to make an appointment to be seen 2. All discharge instructions reviewed with patient and/or family. Voiced understanding. LEONARDO DEWITT APRN Aug 10, 2017 10:41
[2017-08-10] MEDS ORDERED: HYDROcodone/APAP 5 MG/325 MG (LORTAB) TAB PO ONE (10:45)
--- NOTE | 2017-08-10 11:34 | Diagnostic Imaging Report ---
PATIENT HISTORY: Left knee swelling. TECHNIQUE: Three views of the left knee. COMPARISON: 03/22/2016. FINDINGS: There is a left total knee arthroplasty without hardware complication seen. Alignment appears normal. There is enthesopathy along the quadriceps patellar continuum, with calcification along the distal quadriceps. A small left knee joint effusion is present. There is heterotopic ossification at the posterior aspect of the tibial plateau. 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 This is stable since 2016. IMPRESSION: 1. Left total knee arthroplasty without hardware complication seen. There has been interval increased heterotopic ossification, enthesopathy and soft tissue calcification. 2. No acute fracture or dislocation. Small left knee joint effusion. Dictated by: Dictated on workstation # [id number]
[2017-08-10 12:04] LABS: BASOPHILS % (AUTO) 0 % (0-10); EOSINOPHILS % (AUTO) 0 % (0-10); HEMATOCRIT 36 % (40-54); HEMOGLOBIN 13.2 G/DL (13.3-17.7); LYMPHOCYTES % (AUTO) 9 % (12-44); MEAN CORPUSCULAR HEMOGLOBIN 29 PG (25-34); MEAN CORPUSCULAR HGB CONC 36 G/DL (32-36); MEAN CORPUSCULAR VOLUME 79 FL (80-99); MONOCYTES # (AUTO) 1.1 X 10^3 (0.0-1.0); MONOCYTES % (AUTO) 10 % (0-12); NEUTROPHILS # (AUTO) 8.7 X 10^3 (1.8-7.8); NEUTROPHILS % (AUTO) 80 % (42-75); PLATELET COUNT 206 10^3/uL (130-400); RED CELL DISTRIBUTION WIDTH 15.4 % (10.0-14.5); WHITE BLOOD COUNT 10.8 10^3/uL (4.3-11.0)
[2017-08-10 12:28] LABS: ALANINE AMINOTRANSFERASE 21 U/L (0-55); ALBUMIN 3.8 GM/DL (3.2-4.5); ALKALINE PHOSPHATASE 101 U/L (40-136); BILIRUBIN,TOTAL 0.5 MG/DL (0.1-1.0); BUN/CREATININE RATIO 19; CALCIUM 9.1 MG/DL (8.5-10.1); CARBON DIOXIDE 22 MMOL/L (21-32); CHLORIDE 107 MMOL/L (98-107); CREATININE SERUM 1.11 MG/DL (0.60-1.30); GFR ESTIMATED > 60; GLUCOSE 99 MG/DL (70-105); POTASSIUM 4.5 MMOL/L (3.6-5.0); SODIUM 138 MMOL/L (135-145); TOTAL PROTEIN 7.9 GM/DL (6.4-8.2)
--- NOTE | 2017-08-10 12:43 | Diagnostic Imaging Report ---
PATIENT HISTORY: Fall earlier today, pain in the right lateral ribs. TECHNIQUE: Frontal view of the chest, two views of the right ribs. COMPARISON: 03/15/2016. FINDINGS: Lung volumes are markedly low. There are interstitial opacities throughout the lungs bilaterally, which appear more pronounced, but may be due to low lung volumes. The cardiac silhouette is mildly prominent, likely related to technique. No pleural effusion or pneumothorax is seen. There is subtle cortical irregularity at the anterior aspect of the right eighth and ninth ribs, which may represent nondisplaced fractures. Degenerative changes are seen in the right acromioclavicular joint. There is sequela from remote injury of the distal left clavicle. IMPRESSION: 1. Subtle cortical irregularity at the anterior right eighth and ninth ribs, may represent nondisplaced fractures. 2. Markedly low lung volumes with increased interstitial opacities, which may be accentuated due to the hypoventilation. Dictated by: Dictated on workstation # [id number]
[2017-08-10 12:47] LABS: BILIRUBIN,URINE NEGATIVE (NEGATIVE); CLARITY,URINE CLEAR; COLOR,URINE YELLOW; GLUCOSE, URINE (UA) NEGATIVE (NEGATIVE); KETONES,URINE NEGATIVE (NEGATIVE); LEUKOCYTE ESTERASE ,URINE 1+ (NEGATIVE); NITRITE,URINE NEGATIVE (NEGATIVE); PH,URINE 5 (5-9); PROTEIN,URINE 1+ (NEGATIVE); UROBILINOGEN,URINE NORMAL (NORMAL)
[2017-08-10 13:03] LABS: BACTERIA,URINE TRACE /HPF; RBC,URINE RARE /HPF; SQUAMOUS EPITHELIAL CELL,UR RARE /HPF
[2017-08-10 13:21] VITALS: BP 148/95
== END 2017-08-10 13:21 | disposition home or self-care (01) ==
LOC: EDUNIT# 10:32 → ER 10:33
DX: S22.31XA Fracture of one rib, right side, initial encounter for closed fracture (principal); M25.362 Other instability, left knee; G40.909 Epilepsy, unspecified, not intractable, without status epilepticus; Z87.19 Personal history of other diseases of the digestive system; Z87.820 Personal history of traumatic brain injury; Z82.49 Family history of ischemic heart disease and other diseases of the circulatory system; Z96.652 Presence of left artificial knee joint; W18.30XA Fall on same level, unspecified, initial encounter
CPT/HCPCS: 36415; 71101; 73562; 80053; 81000; 85025; 99283

== ENCOUNTER → 2018-02-18 | Outpatient (CLI) | payer MEDICARE, OTHER ==
[~2018-02-18] MED LIST changes: +CATHETER FLUSH 10 ML SYR IV PRN; +CITA10TA7 PO; +IOHEXOL 350 MG/ML 100 ML (OMNIPAQUE 350) VIAL IV ONE; -IPRA3AMP INH; +IPRA3AMP31 INH; +NAPR-915 PO; +NS 100 ML (IVPB) BAG IV ONE
--- NOTE | 2018-02-18 12:44 | Diagnostic Imaging Report ---
PROCEDURE: CT chest with contrast only. TECHNIQUE: Multiple contiguous axial images were obtained through the chest after administration of intravenous contrast. INDICATION: Abnormal chest x-ray with COPD. COMPARISON: Correlation is made with recent chest radiograph from 01/30/2018. FINDINGS: No axillary lymphadenopathy is identified. Small lymph nodes in the mediastinum are noted but no pathologically enlarged nodes are seen. No definite hilar lymphadenopathy is seen. There is a subcarinal node prominent measuring 14 mm short axis. Small lymph nodes in the right infrahilar region are also seen. No pericardial or pleural fluid is identified. Central airways are patent. Abnormal parenchymal opacities are identified bilateral upper and bilateral lower lobes correlating with the chest x-ray abnormality. There appear to be mixed densities with groundglass infiltrates bilaterally as well as prominent interlobular septal thickening. There appears to be some mild cylindrical bronchiectasis bilateral upper and lower lobes. No parenchymal mass is identified. Upper abdomen is unremarkable. IMPRESSION: Bilateral upper and lower lobe groundglass and interstitial infiltrates, acuity indeterminate. There may be some reactive adenopathy in the mediastinum and amanda. No pulmonary parenchymal mass is identified. Followup could be performed to confirm clearing and stability. Dictated by: Dictated on workstation # [id number]
== END ==
LOC: RAD 11:36
PROVIDERS: ATTEND Internal Medicine
DX: J44.9 Chronic obstructive pulmonary disease, unspecified (principal)
CPT/HCPCS: 71260

== ENCOUNTER → 2018-03-12 | Outpatient (CLI) | payer MEDICARE ==
[~2018-03-12] MED LIST changes: -CATHETER FLUSH 10 ML SYR IV PRN; -IOHEXOL 350 MG/ML 100 ML (OMNIPAQUE 350) VIAL IV ONE; -NS 100 ML (IVPB) BAG IV ONE
== END | disposition home or self-care (01) ==
LOC: PREOP 15:04
PROVIDERS: ATTEND Internal Medicine Critical Care Medicine
DX: Z01.818 Encounter for other preprocedural examination (principal)

== ENCOUNTER 2018-03-13 08:00 | Day surgery (SDC) | payer MEDICARE ==
[~2018-03-13] VITALS: Ht 185.4 cm; Wt 120.6 kg
[~2018-03-13 08:00] MED LIST changes: -CITA10TA7 PO; -NAPR-915 PO
[2018-03-13] MEDS ORDERED: LIDOCAINE PF 1% 2 ML AMP INJ ONE (08:01)
[2018-03-13] MEDS ORDERED: LIDOCAINE PF 2% 5 ML (XYLOCAINE) VIAL INJ ONE (08:01)
[2018-03-13] MEDS ORDERED: LIDOCAINE JELLY 2% (XYLOCAINE) 30 ML TUBE TOP ONE (08:01)
--- OUTSIDE RECORDS SUMMARY | 2018-03-13 08:06 | XMS REPORT ---
Author Author KAVEH Delcid [facility] Address Unknown Care Team Providers Care Applied Behavior Specialist Name Role Phone KAVEH Delcid Unavailable PROBLEMS Unknown Problems ALLERGIES No Known Allergies SOCIAL HISTORY Never Assessed PLAN OF CARE Activity Details Follow Up prn Reason:te #5,6,7 VITAL SIGNS Blood pressure systolic 144 mmHg 2016-09-20 Blood pressure diastolic 89 mmHg 2016-09-20 MEDICATIONS Medication Instructions Dosage Frequency Start Date End Date Duration Status Amoxicillin 500 MG Orally 4 times a day 1 capsule 6h Sep, Sep, 7 days Active RESULTS No Results PROCEDURES Procedure Date Ordered Result Body Site LTD ORAL EVALUATION - PROBLEM FOCUS Sep 20, 2016 INTRAORL-PERIAPICAL 1 FILM [id number] Sep 20, 2016 IMMUNIZATIONS No Known Immunizations MEDICAL (GENERAL) HISTORY Type Description Date Surgical History Knee surgery (replacement) 03/2015
--- OUTSIDE RECORDS SUMMARY | 2018-03-13 08:08 | XMS REPORT | Continuity of Care Document ---
Author Author [facility] Organization [facility] Address Unknown Phone Unavailable Allergies Active Description Code Type Severity Reaction Onset Reported/Identified Relationship to Patient Clinical Status Yes No Known Drug Allergies [id number] Drug Allergy Unknown N/A 02/13/2017 Medications There is no data. Problems Date Dx Coded Attending Type Code Diagnosis Diagnosed By 07/05/1202 NIA BULLARD, POP [place] Ot M54.16 RADICULOPATHY, LUMBAR REGION 04/03/2012 Ot 780.2 SYNCOPE AND COLLAPSE 07/12/2014 [...] SYNCOPE AND COLLAPSE 03/13/2016 Ot V72.84 EXAM PRE- OPERATIVE NOS 03/15/2016 NIA BULLARD, POP [place] Ot [...] SYNCOPE AND COLLAPSE 03/20/2016 Ot V72.84 EXAM PRE- OPERATIVE NOS 03/22/2016 Ot 780.2 SYNCOPE AND COLLAPSE [...] OTHER DISEASES OF TH 03/24/2016 POP KRAMER MD Ot Z87.820 PERSONAL HISTORY OF TRAUMATIC BRAIN [...] DISEASE, U 04/07/2016 BUCK SAUCEDO MD Ot K56.60 UNSPECIFIED INTESTINAL OBSTRUCTION 04/07/2016 BUCK SAUCEDO MD Ot K59.09 OTHER [...] SYNCOPE AND COLLAPSE 04/26/2016 Ot V72.84 EXAM PRE- OPERATIVE NOS 02/13/2017 Ot 780.2 SYNCOPE AND COLLAPSE 02/13/2017 POP KRAMER MD Ot Z01.818 ENCOUNTER FOR OTHER PREPROCEDURAL EXAMIN 02/14/2017 Ot 780.2 SYNCOPE AND COLLAPSE 02/14/2017 Ot V72.84 EXAM PRE- OPERATIVE NOS 02/14/2017 POP KRAMER MD Ot Z01.818 ENCOUNTER FOR OTHER PREPROCEDURAL EXAMIN 02/15/2017 POP KRAMER MD Ot M23.8X2 OTHER INTERNAL DERANGEMENTS OF LEFT KNEE 02/15/2017 POP KRAMER MD Ot Z87.891 PERSONAL HISTORY OF NICOTINE DEPENDENCE 02/15/2017 POP KRAMER MD Ot Z96.652 PRESENCE OF LEFT ARTIFICIAL KNEE JOINT 02/15/2017 POP KRAMER MD Ot M23.8X2 OTHER INTERNAL DERANGEMENTS OF LEFT KNEE 02/15/2017 POP KRAMER MD Ot Z87.891 PERSONAL HISTORY OF NICOTINE DEPENDENCE 02/15/2017 POP KRAMER MD Ot Z96.652 PRESENCE OF LEFT ARTIFICIAL KNEE JOINT 02/23/2017 POP KRAMER MD Ot M23.8X2 OTHER INTERNAL DERANGEMENTS OF LEFT KNEE 02/23/2017 POP KRAMER MD Ot Z87.891 PERSONAL HISTORY OF NICOTINE DEPENDENCE 02/23/2017 POP KRAMER MD Ot Z96.652 PRESENCE OF LEFT ARTIFICIAL KNEE JOINT 03/23/2017 Ot 780.2 SYNCOPE AND COLLAPSE 03/23/2017 Ot V72.84 EXAM PRE- OPERATIVE NOS 03/23/2017 POP KRAMER MD Ot M54.16 RADICULOPATHY, LUMBAR REGION 03/23/2017 POP KRAMER MD Ot Z01.818 ENCOUNTER FOR OTHER PREPROCEDURAL EXAMIN 03/29/2017 JESÚS CALABRESE MD Ot B95.62 METHICILLIN RESIS STAPH INFCT CAUSING DI 03/29/2017 JESÚS CALABRESE MD Ot Z11.2 ENCOUNTER FOR SCREENING FOR OTHER BACTER 04/11/2017 POP KRAMER MD Ot M54.16 RADICULOPATHY, LUMBAR REGION 04/11/2017 POP KRAMER MD Ot Z01.818 ENCOUNTER FOR OTHER PREPROCEDURAL EXAMIN 04/13/2017 POP KRAMER MD Ot M47.816 SPONDYLOSIS W/O MYELOPATHY OR RADICULOPA 04/16/2017 POP KRAMER MD Ot M54.16 RADICULOPATHY, LUMBAR REGION 04/16/2017 POP KRAMER MD Ot Z01.818 ENCOUNTER FOR OTHER PREPROCEDURAL EXAMIN 04/16/2017 POP KRAMER MD Ot M47.816 SPONDYLOSIS W/O MYELOPATHY OR RADICULOPA 04/27/2017 POP KRAMER MD Ot M23.8X2 OTHER INTERNAL DERANGEMENTS OF LEFT KNEE 04/27/2017 POP KRAMER MD Ot Z87.891 PERSONAL HISTORY OF NICOTINE DEPENDENCE 04/27/2017 POP KRAMER MD Ot Z96.652 PRESENCE OF LEFT ARTIFICIAL KNEE JOINT 04/27/2017 JESÚS CALABRESE MD Ot B95.62 METHICILLIN RESIS STAPH INFCT CAUSING DI 04/27/2017 JESÚS CALABRESE MD Ot Z11.2 ENCOUNTER FOR SCREENING FOR OTHER BACTER 05/01/2017 POP KRAMER MD Ot M54.16 RADICULOPATHY, LUMBAR REGION 05/01/2017 POP KRAMER MD Ot Z01.818 ENCOUNTER FOR OTHER PREPROCEDURAL EXAMIN 05/01/2017 POP KRAMER MD Ot M47.816 SPONDYLOSIS W/O MYELOPATHY OR RADICULOPA 05/01/2017 JESÚS CALABRESE MD Ot B95.62 METHICILLIN RESIS STAPH INFCT CAUSING DI 05/01/2017 JESÚS CALABRESE MD Ot Z11.2 ENCOUNTER FOR SCREENING FOR OTHER BACTER 05/01/2017 Ot 780.2 SYNCOPE AND COLLAPSE 05/01/2017 Ot V72.84 EXAM PRE- OPERATIVE NOS 05/01/2017 POP KRAMER MD Ot M54.16 RADICULOPATHY, LUMBAR REGION 05/01/2017 POP KRAMER MD Ot Z01.818 ENCOUNTER FOR OTHER PREPROCEDURAL EXAMIN 05/01/2017 POP KRAMER MD Ot M47.816 SPONDYLOSIS W/O MYELOPATHY OR RADICULOPA 05/01/2017 JESÚS CALABRESE MD Ot B95.62 METHICILLIN RESIS STAPH INFCT CAUSING DI 05/01/2017 JESÚS CALABRESE MD Ot Z11.2 ENCOUNTER FOR SCREENING FOR OTHER BACTER 05/05/2017 JESÚS CALABRESE MD Ot B95.62 METHICILLIN RESIS STAPH INFCT CAUSING DI 05/05/2017 JESÚS CALABRESE MD Ot Z11.2 ENCOUNTER FOR SCREENING FOR OTHER BACTER 05/09/2017 JESÚS CALABRESE MD Ot B95.62 METHICILLIN RESIS STAPH INFCT CAUSING DI 05/09/2017 JESÚS CALABRESE MD Ot Z11.2 ENCOUNTER FOR SCREENING FOR OTHER BACTER 06/21/2017 POP KRAMER MD Ot M54.16 RADICULOPATHY, LUMBAR REGION 08/10/2017 LEONARDO DEWITT APRN Ot G40.909 EPILEPSY, UNSP, NOT INTRACTABLE, WITHOUT 08/10/2017 LEONARDO DEWITT APRN Ot M25.362 OTHER INSTABILITY, LEFT KNEE 08/10/2017 LEONARDO DEWITT APRN Ot M25.562 PAIN IN LEFT KNEE 08/10/2017 LEONARDO DEWITT APRN Ot S22.31XA FRACTURE OF ONE RIB, RIGHT SIDE, INIT FO 08/10/2017 LEONARDO DEWITT APRN Ot W18.30XA FALL ON SAME LEVEL, UNSPECIFIED, INITIAL 08/10/2017 LEONARDO DEWITT APRN Ot Z82.49 FAMILY HX OF ISCHEM HEART DIS AND OTH DI 08/10/2017 LEONARDO DEWITT YARD LOADER OPERATOR Ot Z87.19 PERSONAL HISTORY OF OTHER DISEASES OF TH 08/10/2017 LEONARDO DEWITT [employer]ARD LOADER OPERATOR Ot Z87.820 PERSONAL HISTORY OF TRAUMATIC BRAIN INJU 08/10/2017 LEONARDO DEWITT YARD LOADER OPERATOR Ot Z96.652 PRESENCE OF LEFT ARTIFICIAL KNEE JOINT 08/15/2017 Ot 780.2 SYNCOPE AND COLLAPSE 08/15/2017 Ot V72.84 EXAM PRE- OPERATIVE NOS 08/15/2017 POP KRAMER MD Ot M54.16 RADICULOPATHY, LUMBAR REGION 08/15/2017 POP KRAMER MD Ot Z01.818 ENCOUNTER FOR OTHER PREPROCEDURAL EXAMIN 08/15/2017 POP KRAMER MD Ot M47.816 SPONDYLOSIS W/O MYELOPATHY OR RADICULOPA 08/15/2017 JESÚS CALABRESE MD Ot B95.62 METHICILLIN RESIS STAPH INFCT CAUSING DI 08/15/2017 JESÚS CALABRESE MD Ot Z11.2 ENCOUNTER FOR SCREENING FOR OTHER BACTER 08/15/2017 POP KRAMER MD Ot M54.16 RADICULOPATHY, LUMBAR REGION 08/30/2017 POP KRAMER MD Ot M54.16 RADICULOPATHY, LUMBAR REGION 09/17/2017 POP KRAMER MD Ot M54.16 RADICULOPATHY, LUMBAR REGION 01/29/2018 Ot V72.84 EXAM PRE- OPERATIVE NOS 01/29/2018 POP KRAMER MD Ot M54.16 RADICULOPATHY, LUMBAR REGION 01/29/2018 POP KRAMER MD Ot Z01.818 ENCOUNTER FOR OTHER PREPROCEDURAL EXAMIN 01/29/2018 POP KRAMER MD Ot M47.816 SPONDYLOSIS W/O MYELOPATHY OR RADICULOPA 01/29/2018 JESÚS CALABRESE MD Ot B95.62 METHICILLIN RESIS STAPH INFCT CAUSING DI 01/29/2018 JESÚS CALABRESE MD Ot Z11.2 ENCOUNTER FOR SCREENING FOR OTHER BACTER 01/31/2018 JESÚS CALABRESE MD Ot R05 COUGH 01/31/2018 JESÚS CALABRESE MD Ot R06.00 DYSPNEA, UNSPECIFIED 01/31/2018 JESÚS CALABRESE MD Ot Z87.891 PERSONAL HISTORY OF NICOTINE DEPENDENCE 02/18/2018 Ot V72.84 EXAM PRE- OPERATIVE NOS 02/18/2018 NIA BULLARD, POP [place] Ot M54.16 RADICULOPATHY, LUMBAR REGION 02/18/2018 POP KRAMER MD Ot Z01.818 ENCOUNTER FOR OTHER PREPROCEDURAL EXAMIN 02/18/2018 POP KRAMER MD Ot M47.816 SPONDYLOSIS W/O MYELOPATHY OR RADICULOPA 02/18/2018 JESÚS CALABRESE MD Ot B95.62 METHICILLIN RESIS STAPH INFCT CAUSING DI 02/18/2018 JESÚS CALABRESE MD Ot Z11.2 ENCOUNTER FOR SCREENING FOR OTHER BACTER 02/18/2018 JESÚS CALABRESE MD Ot R05 COUGH 02/18/2018 JESÚS CALABRESE MD, Ot R06.00 DYSPNEA, UNSPECIFIED 02/18/2018 JESÚS CALABRESE MD Ot Z87.891 PERSONAL HISTORY OF NICOTINE DEPENDENCE 02/19/2018 JESÚS CALABRESE MD Ot J44.9 CHRONIC OBSTRUCTIVE PULMONARY DISEASE, U 02/20/2018 JESÚS CALABRESE MD, Ot J44.9 CHRONIC OBSTRUCTIVE PULMONARY DISEASE, U 02/20/2018 JESÚS CALABRESE MD, Ot J44.9 CHRONIC OBSTRUCTIVE PULMONARY DISEASE, U 02/20/2018 JESÚS CALABRESE MD, Ot J44.9 CHRONIC OBSTRUCTIVE PULMONARY DISEASE, U 02/20/2018 JESÚS CALABRESE MD Ot R05 COUGH 02/20/2018 JESÚS CALABRESE MD Ot R06.00 DYSPNEA, UNSPECIFIED 02/20/2018 JESÚS CALABRESE MD Ot Z87.891 PERSONAL HISTORY OF NICOTINE DEPENDENCE 02/22/2018 JESÚS CALABRESE MD Ot R05 COUGH 02/22/2018 JESÚS CALABRESE MD Ot R06.00 DYSPNEA, UNSPECIFIED 02/22/2018 JESÚS CALABRESE MD Ot Z87.891 PERSONAL HISTORY OF NICOTINE DEPENDENCE Procedures Code Description Performed By Performed On 96.38 IMPACTED FECES REMOVAL 07/12/2014 [id number] REPLACE OF L KNEE JT WITH SYNTH SUB, MILAN 03/22/2016 Results Test Result Range Complete blood count (CBC) with automated white blood cell (WBC) differential - 03/15/16 10:35 Blood leukocytes automated count (number/volume) 9.3 10*3/uL 4.3-11.0 Blood erythrocytes automated count (number/volume) 4.88 10*6/uL 4.35-5.85 Venous blood hemoglobin measurement (mass/volume) 14.0 [...] Automated blood platelet mean volume measurement 11.9 [foz_us] 7.4-10.4 Automated blood neutrophils/100 leukocytes 65 % [...] Urine pH measurement by test strip 5 5-9 Specific gravity of urine by test strip 1.020 1.016- 1.022 Urine protein assay by test strip, semi-quantitative [...] Serum or plasma sodium measurement (moles/volume) 138 mmol/L 135-145 Serum or plasma potassium measurement (moles/volume) 4.1 mmol/L 3.6-5.0 Serum or plasma chloride measurement (moles/volume) 109 mmol/L 98-107 Carbon dioxide 21 mmol/L 21-32 Serum or plasma anion gap determination (moles/volume) 8 mmol/L 5-14 Serum or plasma urea nitrogen measurement (mass/volume) 18 mg/dL 7-18 Serum or plasma creatinine measurement (mass/volume) 1.18 mg/dL 0.60-1.30 Serum or plasma urea nitrogen/creatinine mass [...] ABO+Rh group AP NRG Transfusion band number [id number] NRG Blood group antibody screen NEGATIVE NRG Complete blood count (CBC) with automated white blood cell (WBC) differential - 03/23/16 04:55 Blood leukocytes automated count (number/volume) 10.0 10*3/uL 4.3-11.0 Blood erythrocytes automated count (number/volume) 4.10 10*6/uL 4.35-5.85 Venous blood hemoglobin measurement (mass/volume) 11.8 [...] Automated blood platelet mean volume measurement 11.8 [foz_us] 7.4-10.4 Automated blood neutrophils/100 leukocytes 71 % [...] Serum or plasma sodium measurement (moles/volume) 136 mmol/L 135-145 Serum or plasma potassium measurement (moles/volume) 4.2 mmol/L 3.6-5.0 Serum or plasma chloride measurement (moles/volume) 106 mmol/L 98-107 Carbon dioxide 22 mmol/L 21-32 Serum or plasma anion gap determination (moles/volume) 8 mmol/L 5-14 Serum or plasma urea nitrogen measurement (mass/volume) 16 mg/dL 7-18 Serum or plasma creatinine measurement (mass/volume) 1.07 mg/dL 0.60-1.30 Serum or plasma urea nitrogen/creatinine mass [...] 06:10 Blood leukocytes automated count (number/volume) 10.9 10*3/uL 4.3-11.0 Blood erythrocytes automated count (number/volume) 3.82 10*6/uL 4.35-5.85 Venous blood hemoglobin measurement (mass/volume) 11.0 [...] Automated blood platelet mean volume measurement 12.1 [foz_us] 7.4-10.4 Automated blood neutrophils/100 leukocytes 68 % [...] Serum or plasma sodium measurement (moles/volume) 135 mmol/L 135-145 Serum or plasma potassium measurement (moles/volume) 3.8 mmol/L 3.6-5.0 Serum or plasma chloride measurement (moles/volume) 105 mmol/L 98-107 Carbon dioxide 22 mmol/L 21-32 Serum or plasma anion gap determination (moles/volume) 8 mmol/L 5-14 Serum or plasma urea nitrogen measurement (mass/volume) 12 mg/dL 7-18 Serum or plasma creatinine measurement (mass/volume) 0.96 mg/dL 0.60-1.30 Serum or plasma urea nitrogen/creatinine mass [...] 15:10 Blood leukocytes automated count (number/volume) 13.4 10*3/uL 4.3-11.0 Blood erythrocytes automated count (number/volume) 4.31 10*6/uL 4.35-5.85 Venous blood hemoglobin measurement (mass/volume) 12.4 [...] Automated blood platelet mean volume measurement 10.3 [foz_us] 7.4-10.4 Automated blood neutrophils/100 leukocytes 81 % [...] Serum or plasma sodium measurement (moles/volume) 139 mmol/L 135-145 Serum or plasma potassium measurement (moles/volume) 4.7 mmol/L 3.6-5.0 Serum or plasma chloride measurement (moles/volume) 102 mmol/L 98-107 Carbon dioxide 26 mmol/L 21-32 Serum or plasma anion gap determination (moles/volume) 11 mmol/L 5-14 Serum or plasma urea nitrogen measurement (mass/volume) 23 mg/dL 7-18 Serum or plasma creatinine measurement (mass/volume) 1.05 mg/dL 0.60-1.30 Serum or plasma urea nitrogen/creatinine mass [...] Serum or plasma sodium measurement (moles/volume) 142 mmol/L 135-145 Serum or plasma potassium measurement (moles/volume) 4.5 mmol/L 3.6-5.0 Serum or plasma chloride measurement (moles/volume) 107 mmol/L 98-107 Carbon dioxide 22 mmol/L 21-32 Serum or plasma anion gap determination (moles/volume) 13 mmol/L 5-14 Serum or plasma urea nitrogen measurement (mass/volume) 25 mg/dL 7-18 Serum or plasma creatinine measurement (mass/volume) 1.04 mg/dL 0.60-1.30 Serum or plasma urea nitrogen/creatinine mass ratio 24 NRG Serum or plasma creatinine measurement with calculation of estimated glomerular filtration rate > NRG Serum or plasma glucose measurement (mass/volume) 121 mg/dL 70-105 Serum or plasma calcium measurement (mass/volume) 8.8 mg/dL 8.5-10.1 Automated blood complete blood count (hemogram) panel - 04/02/16 06:14 Blood leukocytes automated count (number/volume) 13.6 10*3/uL 4.3-11.0 Blood erythrocytes automated count (number/volume) 4.36 10*6/uL 4.35-5.85 Venous blood hemoglobin measurement (mass/volume) 12.5 [...] Automated blood platelet mean volume measurement 11.3 [foz_us] 7.4-10.4 Complete blood count (CBC) with automated white blood cell (WBC) differential - 04/03/16 06:18 Blood leukocytes automated count (number/volume) 9.9 10*3/uL 4.3-11.0 Blood erythrocytes automated count (number/volume) 3.79 10*6/uL 4.35-5.85 Venous blood hemoglobin measurement (mass/volume) 11.0 [...] Automated blood platelet mean volume measurement 11.0 [foz_us] 7.4-10.4 Automated blood neutrophils/100 leukocytes 70 % [...] Serum or plasma sodium measurement (moles/volume) 143 mmol/L 135-145 Serum or plasma potassium measurement (moles/volume) 4.0 mmol/L 3.6-5.0 Serum or plasma chloride measurement (moles/volume) 112 mmol/L 98-107 Carbon dioxide 21 mmol/L 21-32 Serum or plasma anion gap determination (moles/volume) 10 mmol/L 5-14 Serum or plasma urea nitrogen measurement (mass/volume) 25 mg/dL 7-18 Serum or plasma creatinine measurement (mass/volume) 0.96 mg/dL 0.60-1.30 Serum or plasma urea nitrogen/creatinine mass [...] Serum or plasma phosphate measurement (mass/volume) 3.1 mg/dL 2.3-4.7 Magnesium - 04/03/16 06:18 Magnesium 2.5 mg/dL 1.8-2.4 Methicillin resistant Staphylococcus aureus (MRSA) screening culture - 10:12 MRSA SCREEN RESULT POS NRG Bacteria identification in isolate by anaerobe culture - 02/14/17 12:10 Bacteria identification in isolate by anaerobe culture NG NRG Gram stain microscopy - 02/14/17 12:10 GRAM STAIN RESULT NO BACTERIA NRG Bacteria identification in wound by culture - 02/14/17 12:10 Bacteria identification in wound by culture NG NRG Whole blood hemoglobin and hematocrit panel - 02/15/17 06:38 Venous blood hemoglobin measurement (mass/volume) 12.6 g/dL 13.3-17.7 Blood hematocrit (volume fraction) 39 % 40-54 Methicillin resistant Staphylococcus aureus (MRSA) screening culture - 13:45 Methicillin resistant Staphylococcus aureus (MRSA) screening culture NEG NRG Methicillin resistant Staphylococcus aureus (MRSA) screening culture - 12:51 Methicillin resistant Staphylococcus aureus (MRSA) screening culture NEG NRG Complete blood count (CBC) with automated white blood cell (WBC) differential - 08/10/17 11:56 Blood leukocytes automated count (number/volume) 10.8 10*3/uL 4.3-11.0 Blood erythrocytes automated count (number/volume) 4.60 10*6/uL 4.35-5.85 Venous blood hemoglobin measurement (mass/volume) 13.2 g/dL 13.3-17.7 Blood hematocrit (volume fraction) 36 % 40-54 Automated erythrocyte mean corpuscular volume 79 [foz_us] 80-99 Automated erythrocyte mean corpuscular hemoglobin (mass per erythrocyte) 29 pg 25-34 Automated erythrocyte mean corpuscular hemoglobin concentration measurement ( mass/volume) 36 g/dL 32-36 Automated erythrocyte distribution width ratio 15.4 % 10.0-14.5 Automated blood platelet count (count/volume) 206 10*3/uL 130-400 Automated blood platelet mean volume measurement 11.0 [foz_us] 7.4-10.4 Automated blood neutrophils/100 leukocytes 80 % 42-75 Automated blood lymphocytes/100 leukocytes 9 % 12-44 Blood monocytes/100 leukocytes 10 % 0-12 Automated blood eosinophils/100 leukocytes 0 % 0-10 Automated blood basophils/100 leukocytes 0 % 0-10 Blood neutrophils automated count (number/volume) 8.7 10*3 1.8-7.8 Blood lymphocytes automated count (number/volume) 1.0 10*3 1.0-4.0 Blood monocytes automated count (number/volume) 1.1 10*3 0.0-1.0 Automated eosinophil count 0.0 10*3/uL 0.0-0.3 Automated blood basophil count (count/volume) 0.0 10*3/uL 0.0-0.1 Comprehensive metabolic panel - 08/10/17 11:56 Serum or plasma sodium measurement (moles/volume) 138 mmol/L 135-145 Serum or plasma potassium measurement (moles/volume) 4.5 mmol/L 3.6-5.0 Serum or plasma chloride measurement (moles/volume) 107 mmol/L 98-107 Carbon dioxide 22 mmol/L 21-32 Serum or plasma anion gap determination (moles/volume) 9 mmol/L 5-14 Serum or plasma urea nitrogen measurement (mass/volume) 21 mg/dL 7-18 Serum or plasma creatinine measurement (mass/volume) 1.11 mg/dL 0.60-1.30 Serum or plasma urea nitrogen/creatinine mass ratio 19 NRG Serum or plasma creatinine measurement with calculation of estimated glomerular filtration rate > NRG Serum or plasma glucose measurement (mass/volume) 99 mg/dL 70-105 Serum or plasma calcium measurement (mass/volume) 9.1 mg/dL 8.5-10.1 Serum or plasma total bilirubin measurement (mass/volume) 0.5 mg/dL 0.1-1.0 Serum or plasma alkaline phosphatase measurement (enzymatic activity/volume) 101 U/L 40-136 Serum or plasma aspartate aminotransferase measurement (enzymatic activity/ volume) 22 U/L 5-34 Serum or plasma alanine aminotransferase measurement (enzymatic activity/volume ) 21 U/L 0-55 Serum or plasma protein measurement (mass/volume) 7.9 g/dL 6.4-8.2 Serum or plasma albumin measurement (mass/volume) 3.8 g/dL 3.2-4.5 Complete urinalysis with reflex to culture - 08/10/17 12:25 Urine color determination YELLOW NRG Urine clarity determination CLEAR NRG Urine pH measurement by test strip 5 5-9 Specific gravity of urine by test strip 1.020 1.016- 1.022 Urine protein assay by test strip, semi-quantitative 1+ NEGATIVE Urine glucose detection by automated test strip NEGATIVE NEGATIVE Erythrocytes detection in urine sediment by light microscopy 1+ NEGATIVE Urine ketones detection by automated test strip NEGATIVE NEGATIVE Urine nitrite detection by test strip NEGATIVE NEGATIVE Urine total bilirubin detection by test strip NEGATIVE NEGATIVE Urine urobilinogen measurement by automated test strip (mass/volume) NORMAL NORMAL Urine leukocyte esterase detection by dipstick 1+ NEGATIVE Automated urine sediment erythrocyte count by microscopy (number/high power field) RARE NRG Automated urine sediment leukocyte count by microscopy (number/high power field ) [HPF] NRG Bacteria detection in urine sediment by light microscopy TRACE NRG Squamous epithelial cells detection in urine sediment by light microscopy RARE NRG Crystals detection in urine sediment by light microscopy NONE NRG Casts detection in urine sediment by light microscopy NONE NRG Mucus detection in urine sediment by light microscopy SMALL NRG Complete urinalysis with reflex to culture NO NRG Encounters ACCT No. Visit Date/Time Discharge Status Pt. Type Provider Facility Loc./Unit Complaint [id number] 02/18/2018 11:36:00 02/18/2018 23:59:59 CLS Outpatient JESÚS CALABRESE MD [facility] RAD ABNORMAL CXR [id number] 01/30/2018 09:39:00 01/30/2018 23:59:59 CLS Outpatient JESÚS CALABRESE MD [facility] RT COUGH,DYSPNEA [id number] 08/08/2017 10:43:00 09/17/2017 12:03:00 DIS Outpatient POP KRAMER MD [facility] REHAB LUMBAR RADICULOPATHY; GAIT TRAINING [id number] 08/10/2017 10:33:00 08/10/2017 13:21:00 DIS Emergency LEONARDO DEWITT APRN [facility] ER FALL, INJ L KNEE [id number] 05/06/2017 01:00:00 05/06/2017 23:59:59 CLS Preadmit JESÚS CALABRESE MD [facility] LAB POSITIVE MRSA [id number] 04/05/2017 12:47:00 05/05/2017 00:01:00 DIS Outpatient JESÚS CALABRESE MD [facility] LAB POSITIVE MRSA [id number] 03/30/2017 15:30:00 03/30/2017 23:59:59 CLS Preadmit VAN BULLARD FACC, ALI FACP CCDS [facility] RT SOB [id number] 03/23/2017 11:07:00 03/23/2017 23:59:59 CLS Outpatient POP KRAMER MD [facility] RAD M54.16 [id number] 03/20/2017 13:01:00 03/20/2017 23:59:59 CLS Outpatient POP KRAMER MD [facility] RAD RADICULOPATHY [id number] 02/14/2017 09:48:00 02/15/2017 13:00:00 DIS Outpatient POP KRAMER MD [facility] SDC INFECTION LEFT KNEE [id number] 02/13/2017 13:17:00 02/13/2017 14:47:00 DIS Outpatient POP KRAMER MD [facility] PREOP INFECTED LEFT KNEE [id number] 03/24/2016 11:30:00 04/07/2016 14:18:00 DIS Inpatient BUCK SAUCEDO MD [facility] IRF LEFT KNEE OSTEOARTHRITIS [id number] 03/22/2016 05:58:00 03/24/2016 11:29:00 DIS Inpatient POP KRAMER MD [facility] 4TH LEFT KNEE OA [id number] 03/15/2016 09:47:00 03/15/2016 11:00:00 DIS Outpatient POP KRAMER MD [facility] PREOP LEFT KNEE OA [id number] 07/12/2014 14:04:00 07/15/2014 10:03:00 DIS Inpatient JESÚS CALABRESE MD [facility] 4TH SMALL BOWEL OBSTRUCTION [id number] 10/20/2014 11:50:00 Document Registration [id number] 09/29/2014 14:37:00 Document Registration [id number] 04/04/2012 09:00:00 Document Registration [id number] 01/04/2012 08:49:00 Document Registration
[2018-03-13] MEDS ORDERED: NS IV 500 ML 500 ML IV PRN (08:15)
[2018-03-13] MEDS ORDERED: NS IV 500 ML 500 ML ONE (08:16)
[2018-03-13 08:28] VITALS: BP 117/81
[2018-03-13] MEDS ORDERED: NAPR-915 PO (08:35)
[2018-03-13] MEDS ORDERED: CITA10TA7 PO (08:35)
[2018-03-13] MEDS ORDERED: MIDAZOLAM 2 MG/2 ML (VERSED) VIAL ONE ×5 (08:48→08:49)
[2018-03-13] MEDS ORDERED: fentaNYL INJECTION 100 MCG/2 ML AMP ONE ×2 (08:48)
[2018-03-13] MEDS: MIDAZOLAM 2 MG/2 ML (VERSED) VIAL IVP PRN ×2 (09:08→09:11)
[2018-03-13] MEDS: fentaNYL INJECTION 100 MCG/2 ML AMP IVP PRN ×2 (09:09→09:12)
--- NOTE | 2018-03-13 09:41 | Pulmonary Procedures ---
Pulmonary Procedures Date of Procedure Date of Service: Mar 13, 2018 Bronch Bronchoscopy with bronchoalveolar lavage (BAL), transbronchial washes and, transbronchial brushes x2 for fungal and cytology . Preop DX ILD Postop DX: same Complications: none After informed consent obtained and formal time out pt was sedated using Fentanyl and Versed. Bronchoscope was advanced through the nare and vocal cords. 1% lidocaine was used to anesthetize vocal cords, epiglottis, mg, and left/right main stem bronchus. An anatomical tour was undertaken down to the segmental bronchi bilaterally. No endobronchial lesions noted. From the RML bronchoalveolar lavage (BAL), transbronchial washes and, transbronchial brushes x2 for fungal and cytology were obtained.. Pt tolerated procedure well. No complications noted. Stat CXR is pending. SIVAN PEREZ DO Mar 13, 2018 09:40
[2018-03-13 09:55] VITALS: BP 113/61
--- NOTE | 2018-03-13 10:04 | Diagnostic Imaging Report ---
Post bronchoscopy Comparison: 01/30/2018 Two views of the chest demonstrate cardiac enlargement with unchanged interstitial infiltrates in the left hemithorax. There is some increasing infiltrate in the right upper lobe. There is no pneumothorax or effusion. Impression: No post procedure pneumothorax. Dictated by: Dictated on workstation # [id number]
--- NOTE | 2018-03-13 10:11 | Diagnostic Imaging Report ---
Indication: Fluoroscopy for bronchoscopy. Fluoroscopy was provided for Dr. Hernandez during a bronchoscopy. 40 seconds of fluoroscopy was utilized. Impression: Fluoroscopy for bronchoscopy. Dictated by: Dictated on workstation # [id number]
[2018-03-13 10:25] VITALS: BP 120/70
[2018-03-13 10:35] VITALS: BP 120/70
== END 2018-03-13 10:35 | disposition home or self-care (01) ==
LOC: ENDO 08:00
PROVIDERS: ATTEND Internal Medicine Critical Care Medicine
DX: J84.9 Interstitial pulmonary disease, unspecified (principal); Z72.0 Tobacco use; Z91.19 Patient's noncompliance with other medical treatment and regimen
CPT/HCPCS: 71045; 87070; 87101; 87116; 87205; 94640

== ENCOUNTER 2018-07-10 14:36 | Emergency (ER) | payer MEDICARE, MEDICAID ==
[~2018-07-10] VITALS: Ht 182.9 cm; Wt 90.7 kg
[~2018-07-10 14:36] MED LIST changes: +CITA10TA7 PO; +NAPR-915 PO; -POLY17PO23 PO; +POLY17PO31 PO
--- NOTE | 2018-07-10 15:34 | Diagnostic Imaging Report ---
PATIENT HISTORY: Left knee pain, fall. TECHNIQUE: Three views of the left knee. COMPARISON: 08/10/2017 FINDINGS: There is a left total knee arthroplasty. No hardware complication is seen. Alignment appears stable. There is sclerosis of the patella with calcification along the distal quadriceps tendon. There is a minimal left knee joint effusion. A bone infarct is seen in the distal femur. No acute fracture is seen. IMPRESSION: 1. Left total knee arthroplasty without hardware complication seen. Small left knee joint effusion. Additional chronic findings as described above. No acute fracture seen. Dictated by: Dictated on workstation # [id number]
--- NOTE | 2018-07-10 15:50 | ED Fall/Injury ---
General Chief Complaint: Trauma-Non Activation Stated Complaint: FALL Nursing Triage Note: PT PRESENTS TO ED VIA EMS FROM [facility]. ACCORDING TO PT AND [facility] STAFF PT FELL FROM BED. ACCORDING TO EMS APROX 3 FT OFF THE FLOOR. PT DENIES ANY PAIN BESIDES L KNEE AND DENIES LOC. Source: patient Exam Limitations: no limitations History of Present Illness Location Injury Occurred: [facility] Allergies and Home Medications Allergies Coded Allergies: No Known Drug Allergies (Unverified , 02/13/17) Home Medications Citalopram Hydrobromide 10 Mg Tablet, 10 MG PO DAILY, (Reported) Docusate Sodium 100 Mg Capsule, 100 MG PO DAILY, (Reported) Naproxen 500 Mg Tablet, 500 MG PO DAILY, (Reported) Past Myiynhx-Qtlpds-Hxhyjb Hx Patient Social History Alcohol Use: Occasionally Uses Number of Drinks Today: AA Alcohol Beverage of Choice: Beer Recreational Drug Use: No Smoking Status: Former Smoker Type Used: Cigarettes Former Smoker, Quit: Mar 15, 2004 Recent Foreign Travel: No Contact w/Someone Who Travel: No Recent Infectious Disease Expo: No Recent Hopitalizations: No Immunizations Up To Date Tetanus Booster (TDap): Unknown PED Vaccines UTD: No Date of Pneumonia Vaccine: May 22, 2014 Date of Influenza Vaccine: May 22, 2014 Seasonal Allergies Seasonal Allergies: No Past Medical History Surgeries: Yes (HEAD INJURY - BLOOD CLOT IN BRAIN REMOVED, HERNIA REPAIR) Joint Replacement, Neurological, Orthopedic Respiratory: No 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, CONGESTIVE HEART FAILURE) Hypertension Neurological: Yes (BRAIN INJURY IN 1978, HAD SEIZURES FOR A FEW WEEKS AFTER, NONE SINCE) Dementia, Traumatic Brain Injury Reproductive Disorders: No Sexually Transmitted Disease: No HIV/AIDS: No Genitourinary: No Gastrointestinal: Yes (HX OF BOWEL OBSTRUCTION IN 2013) Gastroesophageal Reflux, Obstructive Bowel, Chronic Constipation Musculoskeletal: Yes Arthritis Endocrine: Yes Diabetes, Non-Insulin dep HEENT: Yes (READING GLASSES) Loss of Vision: Bilateral Hearing Impairment: Hard of Hearing Cancer: No Psychosocial: Yes Sleep Difficulties, Depression Integumentary: No Blood Disorders: No Adverse Reaction/Blood Tranf: No Family Medical History Arthritis 19 FATHER G8 SISTER Cataracts 19 FATHER Dementia 19 FATHER Hypertension 19 FATHER 19 MOTHER G8 BROTHER Myocardial infarction G8 BROTHER Thyroid disease 19 FATHER Physical Exam Vital Signs Vital Signs - First Documented 07/10/18 14:43 Temp 98.5 Pulse 91 Resp 18 B/P (MAP) 126/92 (103) Pulse Ox 95 Capillary Refill : Less Than 3 Seconds Height, Weight, BMI Height: 6'0.00" Weight: 200lbs. 6.0oz. 90.873571nt; 38.6 BMI Method:Estimated Procedures/Interventions Date of ETT Placement: Mar 16, 2018 Time of ETT Placement: 1200 Progress/Results/Core Measures Results/Orders My Orders Orders - WADE GARZA MD Knee, Left, 3 Views (07/10/18 14:57) Vital Signs/I&O 07/10/18 07/10/18 14:43 14:48 Temp 98.5 98.5 Pulse 91 91 Resp 18 20 B/P (MAP) 126/92 (103) 126/92 (103) Pulse Ox 95 96 Blood Pressure Mean: 103 Departure Impression Primary Impression: Fall from bed, initial encounter Additional Impression: Left knee pain Qualified Codes: M25.562 - Pain in left knee Disposition: 01 HOME, SELF-CARE Condition: Stable Departure-Patient Inst. Decision time for Depature: 15:49 Referrals: JESÚS CALABRESE MD (PCP/Family) Primary Care Physician Patient Instructions: NO INSTRUCTIONS GIVEN Add. Discharge Instructions: Call your doctor or return to care if you have any other problems or concerns. All discharge instructions reviewed with patient and/or family. Voiced understanding. WADE GARZA MD Jul 10, 2018 15:50
[2018-07-10 16:37] VITALS: BP 125/72
== END 2018-07-10 16:37 | disposition home or self-care (01) ==
LOC: ER 14:36
DX: M25.562 Pain in left knee (principal); I11.0 Hypertensive heart disease with heart failure; I50.9 Heart failure, unspecified; F03.90 Unspecified dementia, unspecified severity, without behavioral disturbance, psychotic disturbance, mood disturbance, and anxiety; K21.9 Gastro-esophageal reflux disease without esophagitis; E11.9 Type 2 diabetes mellitus without complications; F32.9 Major depressive disorder, single episode, unspecified; Z82.49 Family history of ischemic heart disease and other diseases of the circulatory system; Z87.19 Personal history of other diseases of the digestive system; Z87.820 Personal history of traumatic brain injury; Z87.891 Personal history of nicotine dependence; Z86.011 Personal history of benign neoplasm of the brain; Z98.890 Other specified postprocedural states; W06.XXXA Fall from bed, initial encounter
CPT/HCPCS: 73562

== ENCOUNTER 2018-07-13 16:33 | Emergency (ER) | payer MEDICARE, MEDICAID ==
[~2018-07-13] VITALS: Ht 182.9 cm; Wt 90.9 kg
--- NOTE | 2018-07-13 16:36 | ED Fall/Injury ---
General Stated Complaint: FALL Source: patient, EMS Exam Limitations: no limitations History of Present Illness Date Seen by Provider: Jul 13, 2018 Time Seen by Provider: 16:35 Initial Comments To ER per EMS from [facility] and [place] with reports of fall and head injury. 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 He is not on anticoagulation. He denies loss of consciousness or neck pain. He did strike the top of his head. Occurred: just prior to arrival Severity: moderate Allergies and Home Medications Allergies Coded Allergies: No Known Drug Allergies (Unverified , 02/13/17) Home Medications Citalopram Hydrobromide 10 Mg Tablet, 10 MG PO DAILY, (Reported) Docusate Sodium 100 Mg Capsule, 100 MG PO DAILY, (Reported) Naproxen 500 Mg Tablet, 500 MG PO DAILY, (Reported) Patient Home Medication List Home Medication List Reviewed: Yes Review of Systems Review of Systems Constitutional: see HPI Eyes: No Symptoms Reported Ears, Nose, Mouth, Throat: no symptoms reported Respiratory: no symptoms reported Genitourinary: no symptoms reported Musculoskeletal: no symptoms reported Skin: no symptoms reported Psychiatric/Neurological: No Symptoms Reported Past Wpmwsqb-Dxbaim-Haskfq Hx Patient Social History Alcohol Beverage of Choice: Beer Type Used: Cigarettes Former Smoker, Quit: Mar 15, 2004 Recent Hopitalizations: No Immunizations Up To Date Tetanus Booster (TDap): Unknown PED Vaccines UTD: No Date of Pneumonia Vaccine: May 22, 2014 Date of Influenza Vaccine: May 22, 2014 Seasonal Allergies Seasonal Allergies: No Past Medical History Surgeries: Yes (HEAD INJURY - BLOOD CLOT IN BRAIN REMOVED, HERNIA REPAIR) Joint Replacement, Neurological, Orthopedic Respiratory: No 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, CONGESTIVE HEART FAILURE) Hypertension Neurological: Yes (BRAIN INJURY IN 1978, HAD SEIZURES FOR A FEW WEEKS AFTER, NONE SINCE) Dementia, Traumatic Brain Injury Reproductive Disorders: No Sexually Transmitted Disease: No HIV/AIDS: No Genitourinary: No Gastrointestinal: Yes (HX OF BOWEL OBSTRUCTION IN 2013) Gastroesophageal Reflux, Obstructive Bowel, Chronic Constipation Musculoskeletal: Yes Arthritis Endocrine: Yes Diabetes, Non-Insulin dep HEENT: Yes (READING GLASSES) Loss of Vision: Bilateral Hearing Impairment: Hard of Hearing Cancer: No Psychosocial: Yes Sleep Difficulties, Depression Integumentary: No Blood Disorders: No Adverse Reaction/Blood Tranf: No Family Medical History Arthritis 19 FATHER G8 SISTER Cataracts 19 FATHER Dementia 19 FATHER Hypertension 19 FATHER 19 MOTHER G8 BROTHER Myocardial infarction G8 BROTHER Thyroid disease 19 FATHER Physical Exam Vital Signs Capillary Refill : Height, Weight, BMI Height: 6'0.00" Weight: 200lbs. 6.0oz. 90.425674hh; 38.6 BMI Method:Estimated General Appearance: WD/WN, no apparent distress HEENT: PERRL/EOMI, normal ENT inspection, other (there is no scalp contusion or hematoma or laceration or abrasion) Respiratory: no respiratory distress, no accessory muscle use Gastrointestinal: non tender, soft Neurologic/Psychiatric: alert, normal mood/affect, oriented x 3 Skin: normal color, warm/dry Procedures/Interventions Date of ETT Placement: Mar 16, 2018 Time of ETT Placement: 1200 Departure Impression Primary Impression: Fall Qualified Codes: W19.XXXA - Unspecified fall, initial encounter Disposition: 03 XFER SNF Condition: Stable Departure-Patient Inst. Decision time for Depature: 16:39 Referrals: JESÚS CALABRESE MD (PCP) Primary Care Physician ZHANG PAULINO APRN (Family) Primary Care Physician Patient Instructions: Preventing Falls LEONARDO DEWITT APRN Jul 13, 2018 16:36
--- NOTE | 2018-07-13 17:17 | Diagnostic Imaging Report ---
PROCEDURE: CT head without contrast. TECHNIQUE: Multiple contiguous axial images were obtained through the brain without the use of intravenous contrast. INDICATION: Headache. COMPARISON: None. FINDINGS: Chronic encephalomalacia in the posterior right frontal lobe, anterior left temporal lobe, and inferior left frontal lobe. Advanced presumed chronic small vessel ischemic change. Zmufyxrb-ho-zvmplyie generalized cerebral and cerebellar parenchymal volume loss. Intracranial vascular calcifications. No CT evidence of an acute territorial infarction. No intracranial hemorrhage, hydrocephalus, mass effect, or extra-axial fluid collections. Old left convexity craniotomy. No fractures. The visualized paranasal sinuses and mastoids are clear. IMPRESSION: No acute intracranial CT findings. Chronic findings as above. Dictated by: Dictated on workstation # [id number]
[2018-07-13 17:57] VITALS: BP 130/97
== END 2018-07-13 17:59 | disposition home or self-care (01) ==
LOC: EDUNIT# 16:33 → ER 16:34
DX: I11.0 Hypertensive heart disease with heart failure (principal); I50.9 Heart failure, unspecified; K21.9 Gastro-esophageal reflux disease without esophagitis; F03.90 Unspecified dementia, unspecified severity, without behavioral disturbance, psychotic disturbance, mood disturbance, and anxiety; E11.9 Type 2 diabetes mellitus without complications; F32.9 Major depressive disorder, single episode, unspecified; Z82.49 Family history of ischemic heart disease and other diseases of the circulatory system; Z87.820 Personal history of traumatic brain injury; Z87.19 Personal history of other diseases of the digestive system; Z87.891 Personal history of nicotine dependence; Z98.890 Other specified postprocedural states; W05.0XXA Fall from non-moving wheelchair, initial encounter; Y92.129 Unspecified place in nursing home as the place of occurrence of the external cause
CPT/HCPCS: 70450

== ENCOUNTER 2018-10-26 17:27 | Emergency (ER) | payer MEDICARE, MEDICAID ==
[~2018-10-26] VITALS: Ht 180.3 cm; Wt 108.9 kg
--- NOTE | 2018-10-26 17:37 | ED Head Injury ---
General Stated Complaint: FALL Source: patient Exam Limitations: no limitations History of Present Illness Date Seen by Provider: Oct 26, 2018 Time Seen by Provider: 17:35 Initial Comments To ER [facility] with reports of head injury. He was getting up out of his recliner when he fell backwards striking the back of his head on a wall mounted heating and air unit. No loss of consciousness. He reported initially that he had some neck pain to EMS but denies neck pain this time. He arrives in a rigid cervical collar. No other injuries. Occurred: this evening Severity: moderate Location: occipital Method of Injury: fell Loss of Consciousness: no loss of consciousness Associated Systoms: No Headaches, No Nausea/Vomiting Allergies and Home Medications Allergies Coded Allergies: No Known Drug Allergies (Unverified , 10/26/18) Home Medications Citalopram Hydrobromide 10 Mg Tablet, 10 MG PO DAILY, (Reported) Docusate Sodium 100 Mg Capsule, 100 MG PO DAILY, (Reported) Naproxen 500 Mg Tablet, 500 MG PO DAILY, (Reported) Patient Home Medication List Home Medication List Reviewed: Yes Review of Systems Review of Systems Constitutional: see HPI Eyes: No Symptoms Reported Ears, Nose, Mouth, Throat: no symptoms reported Respiratory: no symptoms reported Cardiovascular: no symptoms reported Genitourinary: no symptoms reported Musculoskeletal: see HPI, neck pain (reported neck pain to EMS but denies it to me) Psychiatric/Neurological: See HPI; Denies Headache Endocrine: No Symptoms Reported Past Hsotczz-Jkkfzi-Ngyoxl Hx Patient Social History Alcohol Beverage of Choice: Beer Type Used: Cigarettes Former Smoker, Quit: Mar 15, 2004 2nd Hand Smoke Exposure: No Recent Hopitalizations: No Immunizations Up To Date Tetanus Booster (TDap): Unknown PED Vaccines UTD: No Date of Pneumonia Vaccine: May 22, 2014 Date of Influenza Vaccine: May 22, 2014 Seasonal Allergies Seasonal Allergies: No Past Medical History Surgeries: Yes (HEAD INJURY - BLOOD CLOT IN BRAIN REMOVED, HERNIA REPAIR) Joint Replacement, Neurological, Orthopedic Respiratory: No 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, CONGESTIVE HEART FAILURE) Hypertension Neurological: Yes (BRAIN INJURY IN 1978, HAD SEIZURES FOR A FEW WEEKS AFTER, NONE SINCE) Dementia, Traumatic Brain Injury Reproductive Disorders: No Sexually Transmitted Disease: No HIV/AIDS: No Genitourinary: No Gastrointestinal: Yes (HX OF BOWEL OBSTRUCTION IN 2013) Gastroesophageal Reflux, Obstructive Bowel, Chronic Constipation Musculoskeletal: Yes Arthritis Endocrine: Yes Diabetes, Non-Insulin dep HEENT: Yes (READING GLASSES) Loss of Vision: Bilateral Hearing Impairment: Hard of Hearing Cancer: No Psychosocial: Yes Sleep Difficulties, Depression Integumentary: No Blood Disorders: No Adverse Reaction/Blood Tranf: No Family Medical History Arthritis 19 FATHER G8 SISTER Cataracts 19 FATHER Dementia 19 FATHER Hypertension 19 FATHER 19 MOTHER G8 BROTHER Myocardial infarction G8 BROTHER Thyroid disease 19 FATHER Physical Exam Vital Signs Vital Signs - First Documented 10/26/18 17:28 Temp 97.7 Pulse 93 Resp 24 B/P (MAP) 105/90 (95) Pulse Ox 94 Capillary Refill : Height, Weight, BMI Height: 6'0.00" Weight: 200lbs. 6.0oz. 90.478051ym; 38.6 BMI Method:Estimated General Appearance: WD/WN, no apparent distress HEENT: PERRL/EOMI, normal ENT inspection Neck: non-tender, full range of motion Respiratory: no respiratory distress, no accessory muscle use Gastrointestinal: normal bowel sounds, non tender, soft Extremities: normal range of motion, non-tender Psychiatric: alert, oriented x 3 Crainal Nerves: normal hearing, normal speech, PERRL Motor/Sensory: no motor deficit, no sensory deficit [place] Coma Score Best Eye Response: (4) Open Spontaneously Best Verbal Response: (5) Oriented Best Motor Response: (6) Obeys Commands Thelma Total: 15 Procedures/Interventions Date of ETT Placement: Mar 16, 2018 Time of ETT Placement: 1200 Progress/Results/Core Measures Results/Orders My Orders Orders - LEONARDO DEWITT APRN Ct Head/Cervical Spine Wo (10/26/18 17:31) Vital Signs/I&O 10/26/18 17:28 Temp 97.7 Pulse 93 Resp 24 B/P (MAP) 105/90 (95) Pulse Ox 94 Departure Impression Primary Impression: Minor head injury Qualified Codes: S09.90XA - Unspecified injury of head, initial encounter Additional Impression: Acute bacterial sinusitis Disposition: 01 HOME, SELF-CARE Condition: Stable Departure-Patient Inst. Decision time for Depature: 17:37 Referrals: JESÚS RINALDI MD (PCP) Primary Care Physician ZHANG PAULINO APRN (Family) Primary Care Physician Patient Instructions: Closed Head Injury, Sinusitis in Adults Add. Discharge Instructions: 1. Return to ER for any confusion, severe headache, uncontrollable nausea vomiting. Follow-up with Dr. Rinaldi next week for recheck. Antibiotics as directed Scripts Amoxicillin/Potassium Clav (Augmentin 875-125 Tablet) 1 Each Tablet 1 EACH PO BID, #14 TAB Prov: LEONARDO DEWITT APRN 10/26/18 LEONARDO DEWITT APRN Oct 26, 2018 17:37
--- OUTSIDE RECORDS SUMMARY | 2018-10-26 17:57 | XMS REPORT | Continuity of Care Document ---
Author Author [facility] Organization [facility] Address Unknown Phone Unavailable Allergies Active Description Code Type Severity Reaction Onset Reported/Identified Relationship to Patient Clinical Status Yes No Known Drug Allergies [id number] Drug Allergy Unknown N/A 02/13/2017 Medications There [...] DIS AND OTH DI 08/10/2017 LEONARDO DEWITT VENTILATION WORKER Ot Z87.19 PERSONAL HISTORY OF OTHER DISEASES OF TH 08/10/2017 LEONARDO DEWITT VENTILATION WORKER Ot Z87.820 PERSONAL HISTORY OF TRAUMATIC BRAIN INJU 08/10/2017 LEONARDO DEWITT VENTILATION WORKER Ot Z96.652 PRESENCE OF LEFT ARTIFICIAL KNEE [...] MD Ot R05 COUGH 02/18/2018 JESÚS CALABRESE MD Ot R06.00 DYSPNEA, UNSPECIFIED 02/18/2018 JESÚS CALABRESE MD Ot Z87.891 PERSONAL HISTORY OF NICOTINE DEPENDENCE 02/19/2018 JESÚS CALABRESE MD Ot J44.9 CHRONIC OBSTRUCTIVE PULMONARY DISEASE, U 02/20/2018 JESÚS CALABRESE MD Ot J44.9 CHRONIC OBSTRUCTIVE PULMONARY DISEASE, U 02/20/2018 JESÚS CALABRESE MD Ot J44.9 CHRONIC OBSTRUCTIVE PULMONARY DISEASE, U 02/20/2018 JESÚS CALABRESE MD Ot J44.9 CHRONIC OBSTRUCTIVE PULMONARY DISEASE, U 02/20/2018 JESÚS CALABRESE MD Ot R05 COUGH 02/20/2018 JESÚS CALABRESE MD Ot R06.00 DYSPNEA, UNSPECIFIED 02/20/2018 JESÚS CALABRESE MD Ot Z87.891 PERSONAL HISTORY OF NICOTINE DEPENDENCE 02/22/2018 JESÚS CALABRESE MD Ot R05 COUGH 02/22/2018 JESÚS CALABRESE MD Ot R06.00 DYSPNEA, UNSPECIFIED 02/22/2018 JESÚS CALABRESE MD Ot Z87.891 PERSONAL HISTORY OF NICOTINE DEPENDENCE 03/13/2018 Ot J84.9 INTERSTITIAL PULMONARY DISEASE, UNSPECIF 03/13/2018 Ot Z72.0 TOBACCO USE 03/13/2018 Ot Z91.19 PATIENT'S NONCOMPLIANCE W OT MEDICAL TR 03/20/2018 Ot A41.9 SEPSIS, UNSPECIFIED ORGANISM 03/20/2018 Ot D64.9 ANEMIA, UNSPECIFIED 03/20/2018 Ot E66.01 MORBID ( SEVERE) OBESITY DUE TO EXCESS CA 03/20/2018 Ot E87.2 ACIDOSIS 03/20/2018 Ot G47.33 OBSTRUCTIVE SLEEP APNEA (ADULT) (PEDIATR 03/20/2018 Ot H91.90 UNSPECIFIED HEARING LOSS, UNSPECIFIED EA 03/20/2018 Ot I95.9 HYPOTENSION, UNSPECIFIED 03/20/2018 Ot J18.9 PNEUMONIA, UNSPECIFIED ORGANISM 03/20/2018 Ot J80 ACUTE RESPIRATORY DISTRESS SYNDROME 03/20/2018 Ot J84.10 PULMONARY FIBROSIS, UNSPECIFIED 03/20/2018 Ot K59.09 OTHER CONSTIPATION 03/20/2018 Ot M19.91 PRIMARY OSTEOARTHRITIS, UNSPECIFIED SITE 03/20/2018 Ot N17.9 ACUTE KIDNEY FAILURE, UNSPECIFIED 03/20/2018 Ot R19.5 OTHER FECAL ABNORMALITIES 03/20/2018 Ot R45.1 RESTLESSNESS AND AGITATION 03/20/2018 Ot R65.20 SEVERE SEPSIS WITHOUT SEPTIC SHOCK 03/20/2018 Ot Z68.38 BODY MASS INDEX (BMI) 38.0-38.9, ADULT 03/20/2018 Ot Z86.79 PERSONAL HISTORY OF OTHER DISEASES OF TH 03/20/2018 Ot Z87.820 PERSONAL HISTORY OF TRAUMATIC BRAIN INJU 03/20/2018 Ot Z87.891 PERSONAL HISTORY OF NICOTINE DEPENDENCE 05/08/2018 Ot 227.0 05/08/2018 Ot 721.3 05/08/2018 Ot 786.50 05/08/2018 Ot 789.01 05/08/2018 Ot 959.19 05/08/2018 Ot E849.6 05/08/2018 Ot E885.9 05/08/2018 Ot V81.5 05/08/2018 Ot V72.84 EXAM PRE- OPERATIVE NOS 05/08/2018 NIA BULLARD, POP [place] Ot M54.16 RADICULOPATHY, LUMBAR REGION 05/08/2018 POP KRAMER MD Ot Z01.818 ENCOUNTER FOR OTHER PREPROCEDURAL EXAMIN 05/08/2018 POP KRAMER MD Ot M47.816 SPONDYLOSIS W/O MYELOPATHY OR RADICULOPA 05/08/2018 JESÚS CALABRESE MD Ot B95.62 METHICILLIN RESIS STAPH INFCT CAUSING DI 05/08/2018 JESÚS CALABRESE MD Ot Z11.2 ENCOUNTER FOR SCREENING FOR OTHER BACTER 05/08/2018 JESÚS CALABRESE MD Ot R05 COUGH 05/08/2018 JESÚS CALABRESE MD Ot R06.00 DYSPNEA, UNSPECIFIED 05/08/2018 JESÚS CALABRESE MD Ot Z87.891 PERSONAL HISTORY OF NICOTINE DEPENDENCE 05/08/2018 JESÚS CALABRESE MD Ot J44.9 CHRONIC OBSTRUCTIVE PULMONARY DISEASE, U 05/08/2018 Ot Z01.818 ENCOUNTER FOR OTHER PREPROCEDURAL EXAMIN 05/08/2018 Ot 227.0 05/08/2018 Ot 721.3 05/08/2018 Ot 786.50 05/08/2018 Ot 789.01 05/08/2018 Ot 959.19 05/08/2018 Ot E849.6 05/08/2018 Ot E885.9 05/08/2018 Ot V81.5 05/08/2018 Ot V72.84 EXAM PRE- OPERATIVE NOS 05/08/2018 NIA BULLARD, [place] Ot M54.16 RADICULOPATHY, LUMBAR REGION 05/08/2018 POP KRAMER MD Ot Z01.818 ENCOUNTER FOR OTHER PREPROCEDURAL EXAMIN 05/08/2018 POP KRAMER MD Ot M47.816 SPONDYLOSIS W/O MYELOPATHY OR RADICULOPA 05/08/2018 JESÚS CALABRESE MD Ot B95.62 METHICILLIN RESIS STAPH INFCT CAUSING DI 05/08/2018 JESÚS CALABRESE MD Ot Z11.2 ENCOUNTER FOR SCREENING FOR OTHER BACTER 05/08/2018 BHARATI BULLARD, JESÚS Short Ot R05 COUGH 05/08/2018 JESÚS CALABRESE MD Ot R06.00 DYSPNEA, UNSPECIFIED 05/08/2018 JESÚS CALABRESE MD Ot Z87.891 PERSONAL HISTORY OF NICOTINE DEPENDENCE 05/08/2018 JESÚS CALABRESE MD Ot J44.9 CHRONIC OBSTRUCTIVE PULMONARY DISEASE, U 05/08/2018 Ot Z01.818 ENCOUNTER FOR OTHER PREPROCEDURAL EXAMIN 05/08/2018 Ot J84.9 INTERSTITIAL PULMONARY DISEASE, UNSPECIF 05/08/2018 Ot Z72.0 TOBACCO USE 05/08/2018 Ot Z91.19 PATIENT'S NONCOMPLIANCE W OT MEDICAL TR 05/30/2018 Ot V72.84 EXAM PRE- OPERATIVE NOS 05/30/2018 POP KRAMER MD Ot M54.16 RADICULOPATHY, LUMBAR REGION 05/30/2018 POP KRAMER MD Ot Z01.818 ENCOUNTER FOR OTHER PREPROCEDURAL EXAMIN 05/30/2018 POP KRAMER MD Ot M47.816 SPONDYLOSIS W/O MYELOPATHY OR RADICULOPA 05/30/2018 JESÚS CALABRESE MD Ot B95.62 METHICILLIN RESIS STAPH INFCT CAUSING DI 05/30/2018 JESÚS CALABRESE MD Ot Z11.2 ENCOUNTER FOR SCREENING FOR OTHER BACTER 05/30/2018 JESÚS CALABRESE MD Ot R05 COUGH 05/30/2018 JESÚS CALABRESE MD Ot R06.00 DYSPNEA, UNSPECIFIED 05/30/2018 JESÚS CALABRESE MD Ot Z87.891 PERSONAL HISTORY OF NICOTINE DEPENDENCE 05/30/2018 JESÚS CALABRESE MD Ot J44.9 CHRONIC OBSTRUCTIVE PULMONARY DISEASE, U 05/30/2018 Ot Z01.818 ENCOUNTER FOR OTHER PREPROCEDURAL EXAMIN 07/09/2018 Ot J84.9 INTERSTITIAL PULMONARY DISEASE, UNSPECIF 07/09/2018 Ot Z72.0 TOBACCO USE 07/09/2018 Ot Z91.19 PATIENT'S NONCOMPLIANCE W [facility] MEDICAL TR 07/10/2018 Ot V72.84 EXAM PRE- OPERATIVE NOS 07/10/2018 NIA BULLARD, POP [place] Ot M54.16 RADICULOPATHY, LUMBAR REGION 07/10/2018 POP KRAMER MD Ot Z01.818 ENCOUNTER FOR OTHER PREPROCEDURAL EXAMIN 07/10/2018 POP KRAMER MD Ot M47.816 SPONDYLOSIS W/O MYELOPATHY OR RADICULOPA 07/10/2018 JESÚS CALABRESE MD Ot B95.62 METHICILLIN RESIS STAPH INFCT CAUSING DI 07/10/2018 JESÚS CALABRESE MD Ot Z11.2 ENCOUNTER FOR SCREENING FOR OTHER BACTER 07/10/2018 JESÚS CALABRESE MD Ot R05 COUGH 07/10/2018 JESÚS CALABRESE MD Ot R06.00 DYSPNEA, UNSPECIFIED 07/10/2018 JESÚS CALABRESE MD Ot Z87.891 PERSONAL HISTORY OF NICOTINE DEPENDENCE 07/10/2018 JESÚS CALABRESE MD Ot J44.9 CHRONIC OBSTRUCTIVE PULMONARY DISEASE, U 07/10/2018 Ot Z01.818 ENCOUNTER FOR OTHER PREPROCEDURAL EXAMIN 07/10/2018 KAYLA BULLARD, WADE Martinez Ot E11.9 TYPE 2 DIABETES MELLITUS WITHOUT COMPLIC 07/10/2018 KAYLA BULLARD, WADE Martinez Ot F03.90 UNSPECIFIED DEMENTIA WITHOUT BEHAVIORAL 07/10/2018 WADE GARZA MD, Ot F32.9 MAJOR DEPRESSIVE DISORDER, SINGLE EPISOD 07/10/2018 WADE GARZA MD Ot I11.0 HYPERTENSIVE HEART DISEASE WITH HEART FA 07/10/2018 WADE GARZA MD, Ot I50.9 HEART FAILURE, UNSPECIFIED 07/10/2018 WADE GARZA MD, Ot K21.9 GASTRO-ESOPHAGEAL REFLUX DISEASE WITHOUT 07/10/2018 WADE GARZA MD Ot M25.562 PAIN IN LEFT KNEE 07/10/2018 WADE GARZA MD Ot W06.XXXA FALL FROM BED, INITIAL ENCOUNTER 07/10/2018 WADE GARZA MD Ot Z82.49 FAMILY HX OF ISCHEM HEART DIS AND OTH DI 07/10/2018 WADE GARZA MD Ot Z86.011 PERSONAL HISTORY OF BENIGN NEOPLASM OF T 07/10/2018 WADE GARZA MD Ot Z87.19 PERSONAL HISTORY OF OTHER DISEASES OF TH 07/10/2018 WADE GARZA MD Ot Z87.820 PERSONAL HISTORY OF TRAUMATIC BRAIN INJU 07/10/2018 WADE GARZA MD Ot Z87.891 PERSONAL HISTORY OF NICOTINE DEPENDENCE 07/10/2018 WADE GARZA MD Ot Z98.890 OTHER SPECIFIED POSTPROCEDURAL STATES 07/12/2018 WADE GARZA MD Ot E11.9 TYPE 2 DIABETES MELLITUS WITHOUT COMPLIC 07/12/2018 WADE GARZA MD Ot F03.90 UNSPECIFIED DEMENTIA WITHOUT BEHAVIORAL 07/12/2018 WADE GARZA MD, Ot F32.9 MAJOR DEPRESSIVE DISORDER, SINGLE EPISOD 07/12/2018 WADE GARZA MD Ot I11.0 HYPERTENSIVE HEART DISEASE WITH HEART FA 07/12/2018 WADE GARZA MD Ot I50.9 HEART FAILURE, UNSPECIFIED 07/12/2018 WADE GARZA MD Ot K21.9 GASTRO-ESOPHAGEAL REFLUX DISEASE WITHOUT 07/12/2018 WADE GARZA MD Ot M25.562 PAIN IN LEFT KNEE 07/12/2018 WADE GARZA MD Ot W06.XXXA FALL FROM BED, INITIAL ENCOUNTER 07/12/2018 WADE GARZA MD Ot Z82.49 FAMILY HX OF ISCHEM HEART DIS AND OTH DI 07/12/2018 WADE GARZA MD Ot Z86.011 PERSONAL HISTORY OF BENIGN NEOPLASM OF T 07/12/2018 WADE GARZA MD Ot Z87.19 PERSONAL HISTORY OF OTHER DISEASES OF TH 07/12/2018 WADE GARZA MD Ot Z87.820 PERSONAL HISTORY OF TRAUMATIC BRAIN INJU 07/12/2018 WADE GARZA MD, Ot Z87.891 PERSONAL HISTORY OF NICOTINE DEPENDENCE 07/12/2018 WADE GARZA MD Ot Z98.890 OTHER SPECIFIED POSTPROCEDURAL STATES 07/12/2018 WADE GARZA MD Ot E11.9 TYPE 2 DIABETES MELLITUS WITHOUT COMPLIC 07/12/2018 WADE GARZA MD Ot F03.90 UNSPECIFIED DEMENTIA WITHOUT BEHAVIORAL 07/12/2018 WADE GARZA MD Ot F32.9 MAJOR DEPRESSIVE DISORDER, SINGLE EPISOD 07/12/2018 WADE GARZA MD Ot I11.0 HYPERTENSIVE HEART DISEASE WITH HEART FA 07/12/2018 WADE GARZA MD Ot I50.9 HEART FAILURE, UNSPECIFIED 07/12/2018 WADE GARZA MD Ot K21.9 GASTRO-ESOPHAGEAL REFLUX DISEASE WITHOUT 07/12/2018 WADE GARZA MD Ot M25.562 PAIN IN LEFT KNEE 07/12/2018 WADE GARZA MD Ot W06.XXXA FALL FROM BED, INITIAL ENCOUNTER 07/12/2018 WADE GARZA MD Ot Z82.49 FAMILY HX OF ISCHEM HEART DIS AND OTH DI 07/12/2018 WADE GARZA MD Ot Z86.011 PERSONAL HISTORY OF BENIGN NEOPLASM OF T 07/12/2018 WADE GARZA MD Ot Z87.19 PERSONAL HISTORY OF OTHER DISEASES OF TH 07/12/2018 BRUEGGEMANN MD, WADE T Ot Z87.820 PERSONAL HISTORY OF TRAUMATIC BRAIN INJU 07/12/2018 WADE GARZA MD Ot Z87.891 PERSONAL HISTORY OF NICOTINE DEPENDENCE 07/12/2018 WADE GARZA MD Ot Z98.890 OTHER SPECIFIED POSTPROCEDURAL STATES 07/13/2018 LEONARDO DEWITT APRN Ot E11.9 TYPE 2 DIABETES MELLITUS WITHOUT COMPLIC 07/13/2018 LEONARDO DEWITT APRN Ot F03.90 UNSPECIFIED DEMENTIA WITHOUT BEHAVIORAL 07/13/2018 LEONARDO DEWITT APRN Ot F32.9 MAJOR DEPRESSIVE DISORDER, SINGLE EPISOD 07/13/2018 LEONARDO DEWITT APRN Ot I11.0 HYPERTENSIVE HEART DISEASE WITH HEART FA 07/13/2018 LEONARDO DEWITT APRN Ot I50.9 HEART FAILURE, UNSPECIFIED 07/13/2018 LEONARDO DEWITT APRN Ot K21.9 GASTRO-ESOPHAGEAL REFLUX DISEASE WITHOUT 07/13/2018 LEONARDO DEWITT APRN Ot S09.90XA UNSPECIFIED INJURY OF HEAD, INITIAL ENCO 07/13/2018 LEONARDO DEWITT APRN Ot W05.0XXA FALL FROM NON-MOVING WHEELCHAIR, INITIAL 07/13/2018 LEONARDO DEWITT APRN Ot Y92.[address] IN SENIOR CARE PLACE 07/13/2018 LEONARDO DEWITT APRN Ot Z82.49 FAMILY HX OF ISCHEM HEART DIS AND OTH DI 07/13/2018 LEONARDO DEWITT APRN Ot Z87.19 PERSONAL HISTORY OF OTHER DISEASES OF TH 07/13/2018 LEONARDO DEWITT APRN Ot Z87.820 PERSONAL HISTORY OF TRAUMATIC BRAIN INJU 07/13/2018 LEONARDO DEWITT APRN Ot Z87.891 PERSONAL HISTORY OF NICOTINE DEPENDENCE 07/13/2018 LEONARDO DEWITT APRN Ot Z98.890 OTHER SPECIFIED POSTPROCEDURAL STATES 07/16/2018 WADE GARZA MD Ot E11.9 TYPE 2 DIABETES MELLITUS WITHOUT COMPLIC 07/16/2018 WADE GARZA MD Ot F03.90 UNSPECIFIED DEMENTIA WITHOUT BEHAVIORAL 07/16/2018 WADE GARZA MD Ot F32.9 MAJOR DEPRESSIVE DISORDER, SINGLE EPISOD 07/16/2018 WADE GARZA MD Ot I11.0 HYPERTENSIVE HEART DISEASE WITH HEART FA 07/16/2018 WADE GARZA MD, Ot I50.9 HEART FAILURE, UNSPECIFIED 07/16/2018 WADE GARZA MD, Ot K21.9 GASTRO-ESOPHAGEAL REFLUX DISEASE WITHOUT 07/16/2018 WADE GARZA MD, Ot M25.562 PAIN IN LEFT KNEE 07/16/2018 WADE GARZA MD, Ot W06.XXXA FALL FROM BED, INITIAL ENCOUNTER 07/16/2018 WADE GARZA MD, Ot Z82.49 FAMILY HX OF ISCHEM HEART DIS AND OTH DI 07/16/2018 WADE GARZA MD, Ot Z86.011 PERSONAL HISTORY OF BENIGN NEOPLASM OF T 07/16/2018 WADE GARZA MD, Ot Z87.19 PERSONAL HISTORY OF OTHER DISEASES OF TH 07/16/2018 WADE GARZA MD Ot Z87.820 PERSONAL HISTORY OF TRAUMATIC BRAIN INJU 07/16/2018 WADE GARZA MD Ot Z87.891 PERSONAL HISTORY OF NICOTINE DEPENDENCE 07/16/2018 WADE GARZA MD Ot Z98.890 OTHER SPECIFIED POSTPROCEDURAL STATES 07/16/2018 LEONARDO DEWITT APRN Ot E11.9 TYPE 2 DIABETES MELLITUS WITHOUT COMPLIC 07/16/2018 LEONARDO DEWITT APRN Ot F03.90 UNSPECIFIED DEMENTIA WITHOUT BEHAVIORAL 07/16/2018 LEONARDO DEWITT APRN Ot F32.9 MAJOR DEPRESSIVE DISORDER, SINGLE EPISOD 07/16/2018 LEONARDO DEWITT APRN Ot I11.0 HYPERTENSIVE HEART DISEASE WITH HEART FA 07/16/2018 LEONARDO DEWITT APRN Ot I50.9 HEART FAILURE, UNSPECIFIED 07/16/2018 LEONARDO DEWITT APRN Ot K21.9 GASTRO-ESOPHAGEAL REFLUX DISEASE WITHOUT 07/16/2018 LEONARDO DEWITT APRN Ot S09.90XA UNSPECIFIED INJURY OF HEAD, INITIAL ENCO 07/16/2018 LEONARDO DEWITT APRN Ot W05.0XXA FALL FROM NON-MOVING WHEELCHAIR, INITIAL 07/16/2018 LEONARDO DEWITT APRN Ot Y92.[address] IN SENIOR CARE PLACE 07/16/2018 LEONARDO DEWITT VENTILATION WORKER Ot Z82.49 FAMILY HX OF ISCHEM HEART DIS AND OTH DI 07/16/2018 LEONARDO DEWITT APRN Ot Z87.19 PERSONAL HISTORY OF OTHER DISEASES OF TH 07/16/2018 LEONARDO DEWITT VENTILATION WORKER Ot Z87.820 PERSONAL HISTORY OF TRAUMATIC BRAIN INJU 07/16/2018 LEONARDO DEWITT APRN Ot Z87.891 PERSONAL HISTORY OF NICOTINE DEPENDENCE 07/16/2018 LEONARDO DEWITT APRN Ot Z98.890 OTHER SPECIFIED POSTPROCEDURAL STATES 08/21/2018 BHARATI BULLARD, JESÚS Short Ot R05 COUGH 08/21/2018 JESÚS CALABRESE MD Ot R06.00 DYSPNEA, UNSPECIFIED 08/21/2018 JESÚS CALABRESE MD Ot Z87.891 PERSONAL HISTORY OF NICOTINE DEPENDENCE 09/19/2018 JESÚS CALABRESE MD Ot R05 COUGH 09/19/2018 JESÚS CALABRESE MD Ot R06.00 DYSPNEA, UNSPECIFIED 09/19/2018 JESÚS CALABRESE MD Ot Z87.891 PERSONAL HISTORY OF NICOTINE DEPENDENCE Procedures Code Description Performed By Performed On 96.38 IMPACTED FECES REMOVAL 07/12/2014 [id number] REPLACE OF L KNEE JT WITH SYNTH SUB, MILAN 03/22/2016 [id number] DRAINAGE OF RIGHT MIDDLE LUNG LOBE, ENDO 03/13/2018 [id number] EXTRACTION OF RIGHT MIDDLE LUNG LOBE, EN 03/13/2018 [id number] RESPIRATORY VENTILATION, GREATER THAN 96 03/16/2018 [id number] DRAINAGE OF RIGHT MAIN BRONCHUS, ENDO, D 03/19/2018 [id number] DRAINAGE OF LEFT MAIN BRONCHUS, ENDO, DI 03/19/2018 [id number] DRAINAGE OF RIGHT MIDDLE LUNG LOBE, ENDO 03/19/2018 [id number] EXTIRPATION OF MATTER FROM RIGHT MIDDLE 03/19/2018 Results Test Result Range Complete blood count [...] ABO+Rh group AP NRG Transfusion band number [id number] NRG Blood group antibody screen NEGATIVE NR Complete blood count (CBC) with automated white [...] blood complete blood count (hemogram) panel - 08/28/16 06:14 Blood leukocytes automated count (number/volume) 13.6 [...] urinalysis with reflex to culture NO NRG Sputum Gram stain - 03/13/18 09:14 Sputum Gram stain No bacteria seen NRG Bacteria identification in bronchial specimen by aerobe culture - 03/13/18 09: 14 Bacteria identification in bronchial specimen by aerobe culture NG NRG Sputum Gram stain - 03/13/18 09:15 Sputum Gram stain No bacteria seen NRG Fungus culture - 03/13/18 09:15 FUNGUS REPORT NO FUNGUS GROWTH OBSERVED NRG Bacteria identification in bronchial specimen by aerobe culture - 03/13/18 09: 15 Bacteria identification in bronchial specimen by aerobe culture NG NRG Mycobacterium species detection by organism specific culture - 03/13/18 09:15 Fungus culture - 03/13/18 09:16 Fungus culture NG NRG Complete blood count (CBC) with automated white blood cell (WBC) differential - 03/13/18 12:40 Blood leukocytes automated count (number/volume) 14.5 10*3/uL 4.3-11.0 Blood erythrocytes automated count (number/volume) 4.48 10*6/uL 4.35-5.85 Venous blood hemoglobin measurement (mass/volume) 13.5 g/dL 13.3-17.7 Blood hematocrit (volume fraction) 40 % 40-54 Automated erythrocyte mean corpuscular volume 90 [foz_us] 80-99 Automated erythrocyte mean corpuscular hemoglobin (mass per erythrocyte) 30 pg 25-34 Automated erythrocyte mean corpuscular hemoglobin concentration measurement ( mass/volume) 34 g/dL 32-36 Automated erythrocyte distribution width ratio 17.2 % 10.0-14.5 Automated blood platelet count (count/volume) 203 10*3/uL 130-400 Automated blood platelet mean volume measurement 12.4 [foz_us] 7.4-10.4 Automated blood neutrophils/100 leukocytes 86 % 42-75 Automated blood lymphocytes/100 leukocytes 9 % 12-44 Blood monocytes/100 leukocytes 4 % 0-12 Automated blood eosinophils/100 leukocytes 1 % 0-10 Automated blood basophils/100 leukocytes 0 % 0-10 Blood neutrophils automated count (number/volume) 12.4 10*3 1.8-7.8 Blood lymphocytes automated count (number/volume) 1.3 10*3 1.0-4.0 Blood monocytes automated count (number/volume) 0.6 10*3 0.0-1.0 Automated eosinophil count 0.2 10*3/uL 0.0-0.3 Automated blood basophil count (count/volume) 0.0 10*3/uL 0.0-0.1 Blood lactic acid measurement (moles/volume) - 03/13/18 12:40 Blood lactic acid measurement (moles/volume) 2.60 mmol/L 0.50-2.00 PT panel in platelet poor plasma by coagulation assay - 03/13/18 12:40 Prothrombin time (PT) in platelet poor plasma by coagulation assay 14.8 s 12.2-14.7 INR in platelet poor plasma or blood by coagulation assay 1.2 0.8-1.4 Activated partial thromboplastin time (aPTT) in platelet poor plasma bycoagulation assay - 03/13/18 12:40 Activated partial thromboplastin time (aPTT) in platelet poor plasma bycoagulation assay 27 s 24-35 Comprehensive metabolic panel - 03/13/18 12:40 Serum or plasma sodium measurement (moles/volume) 139 mmol/L 135-145 Serum or plasma potassium measurement (moles/volume) 4.3 mmol/L 3.6-5.0 Serum or plasma chloride measurement (moles/volume) 106 mmol/L 98-107 Carbon dioxide 24 mmol/L 21-32 Serum or plasma anion gap determination (moles/volume) 9 mmol/L 5-14 Serum or plasma urea nitrogen measurement (mass/volume) 20 mg/dL 7-18 Serum or plasma creatinine measurement (mass/volume) 1.15 mg/dL 0.60-1.30 Serum or plasma urea nitrogen/creatinine mass ratio 17 NRG Serum or plasma creatinine measurement with calculation of estimated glomerular filtration rate > NRG Serum or plasma glucose measurement (mass/volume) 100 mg/dL 70-105 Serum or plasma calcium measurement (mass/volume) 9.2 mg/dL 8.5-10.1 Serum or plasma total bilirubin measurement (mass/volume) 0.5 mg/dL 0.1-1.0 Serum or plasma alkaline phosphatase measurement (enzymatic activity/volume) 115 U/L 40-136 Serum or plasma aspartate aminotransferase measurement (enzymatic activity/ volume) 23 U/L 5-34 Serum or plasma alanine aminotransferase measurement (enzymatic activity/volume ) 18 U/L 0-55 Serum or plasma protein measurement (mass/volume) 8.0 g/dL 6.4-8.2 Serum or plasma albumin measurement (mass/volume) 3.9 g/dL 3.2-4.5 CALCIUM CORRECTED 9.3 mg/dL 8.5-10.1 Blood manual differential performed detection - 03/13/18 12:40 Blood monocytes/100 leukocytes 2 % NRG Manual blood segmented neutrophils/100 leukocytes 71 % NRG Blood band neutrophils/100 leukocytes 9 % NRG Manual blood lymphocytes/100 leukocytes 13 % NRG Manual eosinophils/100 leukocytes in nose 1 % NRG Manual blood basophils/100 leukocytes 0 % NRG Blood lymphocytes variant/100 leukocytes 4 % NRG Blood anisocytosis detection by light microscopy SLIGHT NRG Blood rouleaux detection by light microscopy SLIGHT NRG Blood platelet clump detection by light microscopy SLIGHT NRG Bacterial blood culture - 03/13/18 12:40 Bacterial blood culture NG NRG Bacterial blood culture - 03/13/18 13:16 Bacterial blood culture NG NRG Arterial blood gas measurement - 03/13/18 14:18 Blood pCO2 37 mm[Hg] 35-45 Blood pO2 99 mm[Hg] 79-93 Arterial blood bicarbonate measurement (moles/volume) 21 mmol/L 23-27 Arterial blood base excess by calculation -3.1 mmol/L - 2.5-2.5 Arterial blood oxygen saturation measurement 98 % 94-100 * Inhaled oxygen flow rate 6L NRG Arterial blood pH measurement with patient temperature correction 7.38 7.37-7.43 Arterial blood carbon dioxide, total measurement (moles/volume) 21.9 mmol/L 21.0-31.0 Body site RT RAD NRG Assessment of wrist artery patency prior to arterial puncture YES- POS NRG Setting of ventilation mode NO NRG Measurement of body temperature 101.5 NRG Serum or plasma lactate measurement (moles/volume) - 03/13/18 15:29 Serum or plasma lactate measurement (moles/volume) 1.96 mmol/L 0.50-2.00 Complete blood count (CBC) with automated white blood cell (WBC) differential - 03/14/18 06:29 Blood leukocytes automated count (number/volume) 11.0 10*3/uL 4.3-11.0 Blood erythrocytes automated count (number/volume) 3.65 10*6/uL 4.35-5.85 Venous blood hemoglobin measurement (mass/volume) 10.7 g/dL 13.3-17.7 Blood hematocrit (volume fraction) 33 % 40-54 Automated erythrocyte mean corpuscular volume 90 [foz_us] 80-99 Automated erythrocyte mean corpuscular hemoglobin (mass per erythrocyte) 29 pg 25-34 Automated erythrocyte mean corpuscular hemoglobin concentration measurement ( mass/volume) 33 g/dL 32-36 Automated erythrocyte distribution width ratio 17.3 % 10.0-14.5 Automated blood platelet count (count/volume) 158 10*3/uL 130-400 Automated blood platelet mean volume measurement 12.5 [foz_us] 7.4-10.4 Automated blood neutrophils/100 leukocytes 74 % 42-75 Automated blood lymphocytes/100 leukocytes 12 % 12-44 Blood monocytes/100 leukocytes 13 % 0-12 Automated blood eosinophils/100 leukocytes 1 % 0-10 Automated blood basophils/100 leukocytes 0 % 0-10 Blood neutrophils automated count (number/volume) 8.1 10*3 1.8-7.8 Blood lymphocytes automated count (number/volume) 1.4 10*3 1.0-4.0 Blood monocytes automated count (number/volume) 1.4 10*3 0.0-1.0 Automated eosinophil count 0.1 10*3/uL 0.0-0.3 Automated blood basophil count (count/volume) 0.0 10*3/uL 0.0-0.1 Comprehensive metabolic panel - 03/14/18 06:29 Serum or plasma sodium measurement (moles/volume) 138 mmol/L 135-145 Serum or plasma potassium measurement (moles/volume) 4.1 mmol/L 3.6-5.0 Serum or plasma chloride measurement (moles/volume) 111 mmol/L 98-107 Carbon dioxide 20 mmol/L 21-32 Serum or plasma anion gap determination (moles/volume) 7 mmol/L 5-14 Serum or plasma urea nitrogen measurement (mass/volume) 20 mg/dL 7-18 Serum or plasma creatinine measurement (mass/volume) 1.13 mg/dL 0.60-1.30 Serum or plasma urea nitrogen/creatinine mass ratio 18 NRG Serum or plasma creatinine measurement with calculation of estimated glomerular filtration rate > NRG Serum or plasma glucose measurement (mass/volume) 105 mg/dL 70-105 Serum or plasma calcium measurement (mass/volume) 8.2 mg/dL 8.5-10.1 Serum or plasma total bilirubin measurement (mass/volume) 0.8 mg/dL 0.1-1.0 Serum or plasma alkaline phosphatase measurement (enzymatic activity/volume) 80 U/L 40-136 Serum or plasma aspartate aminotransferase measurement (enzymatic activity/ volume) 22 U/L 5-34 Serum or plasma alanine aminotransferase measurement (enzymatic activity/volume ) 20 U/L 0-55 Serum or plasma protein measurement (mass/volume) 6.3 g/dL 6.4-8.2 Serum or plasma albumin measurement (mass/volume) 3.3 g/dL 3.2-4.5 CALCIUM CORRECTED 8.8 mg/dL 8.5-10.1 Complete blood count (CBC) with automated white blood cell (WBC) differential - 03/15/18 04:26 Blood leukocytes automated count (number/volume) 13.1 10*3/uL 4.3-11.0 Blood erythrocytes automated count (number/volume) 3.91 10*6/uL 4.35-5.85 Venous blood hemoglobin measurement (mass/volume) 11.8 g/dL 13.3-17.7 Blood hematocrit (volume fraction) 35 % 40-54 Automated erythrocyte mean corpuscular volume 90 [foz_us] 80-99 Automated erythrocyte mean corpuscular hemoglobin (mass per erythrocyte) 30 pg 25-34 Automated erythrocyte mean corpuscular hemoglobin concentration measurement ( mass/volume) 34 g/dL 32-36 Automated erythrocyte distribution width ratio 17.2 % 10.0-14.5 Automated blood platelet count (count/volume) 155 10*3/uL 130-400 Automated blood platelet mean volume measurement 12.4 [foz_us] 7.4-10.4 Automated blood neutrophils/100 leukocytes 82 % 42-75 Automated blood lymphocytes/100 leukocytes 7 % 12-44 Blood monocytes/100 leukocytes 10 % 0-12 Automated blood eosinophils/100 leukocytes 1 % 0-10 Automated blood basophils/100 leukocytes 0 % 0-10 Blood neutrophils automated count (number/volume) 10.8 10*3 1.8-7.8 Blood lymphocytes automated count (number/volume) 0.9 10*3 1.0-4.0 Blood monocytes automated count (number/volume) 1.3 10*3 0.0-1.0 Automated eosinophil count 0.1 10*3/uL 0.0-0.3 Automated blood basophil count (count/volume) 0.0 10*3/uL 0.0-0.1 Comprehensive metabolic panel - 03/15/18 04:26 Serum or plasma sodium measurement (moles/volume) 136 mmol/L 135-145 Serum or plasma potassium measurement (moles/volume) 4.2 mmol/L 3.6-5.0 Serum or plasma chloride measurement (moles/volume) 109 mmol/L 98-107 Carbon dioxide 19 mmol/L 21-32 Serum or plasma anion gap determination (moles/volume) 8 mmol/L 5-14 Serum or plasma urea nitrogen measurement (mass/volume) 12 mg/dL 7-18 Serum or plasma creatinine measurement (mass/volume) 1.05 mg/dL 0.60-1.30 Serum or plasma urea nitrogen/creatinine mass ratio 11 NRG Serum or plasma creatinine measurement with calculation of estimated glomerular filtration rate > NRG Serum or plasma glucose measurement (mass/volume) 141 mg/dL 70-105 Serum or plasma calcium measurement (mass/volume) 8.8 mg/dL 8.5-10.1 Serum or plasma total bilirubin measurement (mass/volume) 0.9 mg/dL 0.1-1.0 Serum or plasma alkaline phosphatase measurement (enzymatic activity/volume) 83 U/L 40-136 Serum or plasma aspartate aminotransferase measurement (enzymatic activity/ volume) 25 U/L 5-34 Serum or plasma alanine aminotransferase measurement (enzymatic activity/volume ) 19 U/L 0-55 Serum or plasma protein measurement (mass/volume) 7.4 g/dL 6.4-8.2 Serum or plasma albumin measurement (mass/volume) 3.5 g/dL 3.2-4.5 CALCIUM CORRECTED 9.2 mg/dL 8.5-10.1 Vancomycin trough - 03/15/18 04:26 Vancomycin trough 10.5 ug/mL 10.0-20.0 Arterial blood gas measurement - 03/15/18 08:00 Blood pCO2 32 mm[Hg] 35-45 Blood pO2 73 mm[Hg] 79-93 Arterial blood bicarbonate measurement (moles/volume) 18 mmol/L 23-27 Arterial blood base excess by calculation -5.5 mmol/L - 2.5-2.5 Arterial blood oxygen saturation measurement 93 % 94-100 * Inhaled oxygen flow rate 60% NRG Arterial blood pH measurement with patient temperature correction 7.38 7.37-7.43 Arterial blood carbon dioxide, total measurement (moles/volume) 19.3 mmol/L 21.0-31.0 Body site R RAD NRG Assessment of wrist artery patency prior to arterial puncture YES- POS NRG Setting of ventilation mode NA NRG Measurement of body temperature 100.5 NRG Arterial blood gas measurement - 03/15/18 21:54 Blood pCO2 37 mm[Hg] 35-45 Blood pO2 97 mm[Hg] 79-93 Arterial blood bicarbonate measurement (moles/volume) 23 mmol/L 23-27 Arterial blood base excess by calculation -1.2 mmol/L - 2.5-2.5 Arterial blood oxygen saturation measurement 98 % 94-100 * Inhaled oxygen flow rate 50% BIPAP NRG Arterial blood pH measurement with patient temperature correction 7.41 7.37-7.43 Arterial blood carbon dioxide, total measurement (moles/volume) 23.7 mmol/L 21.0-31.0 Body site RIGHT RADIAL NRG Assessment of wrist artery patency prior to arterial puncture POSITIVE NRG Setting of ventilation mode NO NRG Measurement of body temperature 99.7 NRG Complete blood count (CBC) with automated white blood cell (WBC) differential - 03/16/18 05:45 Blood leukocytes automated count (number/volume) 8.9 10*3/uL 4.3-11.0 Blood erythrocytes automated count (number/volume) 3.80 10*6/uL 4.35-5.85 Venous blood hemoglobin measurement (mass/volume) 11.1 g/dL 13.3-17.7 Blood hematocrit (volume fraction) 34 % 40-54 Automated erythrocyte mean corpuscular volume 89 [foz_us] 80-99 Automated erythrocyte mean corpuscular hemoglobin (mass per erythrocyte) 29 pg 25-34 Automated erythrocyte mean corpuscular hemoglobin concentration measurement ( mass/volume) 33 g/dL 32-36 Automated erythrocyte distribution width ratio 17.0 % 10.0-14.5 Automated blood platelet count (count/volume) 139 10*3/uL 130-400 Automated blood platelet mean volume measurement 11.9 [foz_us] 7.4-10.4 Automated blood neutrophils/100 leukocytes 77 % 42-75 Automated blood lymphocytes/100 leukocytes 12 % 12-44 Blood monocytes/100 leukocytes 10 % 0-12 Automated blood eosinophils/100 leukocytes 1 % 0-10 Automated blood basophils/100 leukocytes 0 % 0-10 Blood neutrophils automated count (number/volume) 6.8 10*3 1.8-7.8 Blood lymphocytes automated count (number/volume) 1.0 10*3 1.0-4.0 Blood monocytes automated count (number/volume) 0.9 10*3 0.0-1.0 Automated eosinophil count 0.1 10*3/uL 0.0-0.3 Automated blood basophil count (count/volume) 0.0 10*3/uL 0.0-0.1 Whole blood basic metabolic panel - 03/16/18 05:45 Serum or plasma sodium measurement (moles/volume) 137 mmol/L 135-145 Serum or plasma potassium measurement (moles/volume) 4.0 mmol/L 3.6-5.0 Serum or plasma chloride measurement (moles/volume) 107 mmol/L 98-107 Carbon dioxide 19 mmol/L 21-32 Serum or plasma anion gap determination (moles/volume) 11 mmol/L 5-14 Serum or plasma urea nitrogen measurement (mass/volume) 24 mg/dL 7-18 Serum or plasma creatinine measurement (mass/volume) 1.73 mg/dL 0.60-1.30 Serum or plasma urea nitrogen/creatinine mass ratio 14 NRG Serum or plasma creatinine measurement with calculation of estimated glomerular filtration rate 39 NRG Serum or plasma glucose measurement (mass/volume) 117 mg/dL 70-105 Serum or plasma calcium measurement (mass/volume) 8.7 mg/dL 8.5-10.1 Serum or plasma phosphate measurement (mass/volume) - 03/16/18 05:45 Serum or plasma phosphate measurement (mass/volume) 4.4 mg/dL 2.3-4.7 Magnesium - 03/16/18 05:45 Magnesium 2.1 mg/dL 1.8-2.4 Serum or plasma lithium measurement (moles/volume) - 03/16/18 05:45 BNP level 122.3 pg/mL <100.0 Blood lactic acid measurement (moles/volume) - 03/16/18 06:32 Blood lactic acid measurement (moles/volume) 0.93 mmol/L 0.50-2.00 Arterial blood gas measurement - 03/16/18 07:41 Blood pCO2 34 mm[Hg] 35-45 Blood pO2 57 mm[Hg] 79-93 Arterial blood bicarbonate measurement (moles/volume) 21 mmol/L 23-27 Arterial blood base excess by calculation -3.3 mmol/L - 2.5-2.5 Arterial blood oxygen saturation measurement 93 % 94-100 * Inhaled oxygen flow rate 50 NRG Arterial blood pH measurement with patient temperature correction 7.40 7.37-7.43 Arterial blood carbon dioxide, total measurement (moles/volume) 22.0 mmol/L 21.0-31.0 Body site LT RADIAL NRG Assessment of wrist artery patency prior to arterial puncture YES- POS NRG Setting of ventilation mode NO NRG Measurement of body temperature 96.7 NRG Complete urinalysis with reflex to culture - 03/16/18 09:30 Urine color determination YELLOW NRG Urine clarity determination CLEAR NRG Urine pH measurement by test strip 5 5-9 Specific gravity of urine by test strip 1.015 1.016- 1.022 Urine protein assay by test strip, semi-quantitative 2+ NEGATIVE Urine glucose detection by automated test strip NEGATIVE NEGATIVE Erythrocytes detection in urine sediment by light microscopy 2+ NEGATIVE Urine ketones detection by automated test strip NEGATIVE NEGATIVE Urine nitrite detection by test strip NEGATIVE NEGATIVE Urine total bilirubin detection by test strip NEGATIVE NEGATIVE Urine urobilinogen measurement by automated test strip (mass/volume) NORMAL NORMAL Urine leukocyte esterase detection by dipstick 2+ NEGATIVE Automated urine sediment erythrocyte count by microscopy (number/high power field) [HPF] NRG Automated urine sediment leukocyte count by microscopy (number/high power field ) [HPF] NRG Bacteria detection in urine sediment by light microscopy MODERATE NRG Crystals detection in urine sediment by light microscopy NONE NRG Casts detection in urine sediment by light microscopy NONE NRG Mucus detection in urine sediment by light microscopy NEGATIVE NRG Complete urinalysis with reflex to culture YES NRG Sputum Gram stain - 03/19/18 06:49 Sputum Gram stain No bacteria seen NRG Bacteria identification in bronchial specimen by aerobe culture - 03/19/18 06: 49 Bacteria identification in bronchial specimen by aerobe culture NG NRG C FUNGUS SPUTUM FLUID TISSUE - 03/19/18 06:49 FUNGUS REPORT NO FUNGUS GROWTH OBSERVED NRG Mycobacterium species detection by organism specific culture - 03/19/18 06:49 QUANTITY OF GROWTH . NRG Mycobacterium species detection by organism specific culture SEE COMMEN NRG Sputum Gram stain - 03/19/18 06:52 Sputum Gram stain No bacteria seen NRG Bacteria identification in bronchial specimen by aerobe culture - 03/19/18 06: 52 Bacteria identification in bronchial specimen by aerobe culture NG NRG C FUNGUS SPUTUM FLUID TISSUE - 03/19/18 06:52 FUNGUS REPORT NO FUNGUS GROWTH OBSERVED NRG Mycobacterium species detection by organism specific culture - 03/19/18 06:52 QUANTITY OF GROWTH . NRG Mycobacterium species detection by organism specific culture SEE COMMEN NRG Encounters ACCT No. Visit Date/Time Discharge Status Pt. Type Provider Facility Loc./Unit Complaint [id number] 07/13/2018 16:34:00 07/13/2018 17:59:00 DIS Emergency LEONARDO DEWITT APRN [facility] ER FALL [id number] 07/10/2018 14:36:00 07/10/2018 16:37:00 DIS Emergency WADE GARZA MD [facility] ER FALL [id number] 02/18/2018 11:36:00 02/18/2018 23:59:59 CLS Outpatient JESÚS CALABRESE MD [facility] RAD ABNORMAL CXR [id number] 01/30/2018 09:39:00 01/30/2018 23:59:59 CLS Outpatient JESÚS CALABRESE MD [facility] RT COUGH,DYSPNEA [id number] 08/08/2017 10:43:00 09/17/2017 12:03:00 DIS Outpatient POP KRAMER MD [facility] REHAB LUMBAR RADICULOPATHY; GAIT TRAINING [id number] 08/10/2017 10:33:00 08/10/2017 13:21:00 DIS Emergency LEONARDO DEWITT VENTILATION WORKER [facility] ER FALL, INJ L KNEE [id number] 05/06/2017 01:00:00 05/06/2017 23:59:59 CLS Preadmit JESÚS CALABRESE MD [facility] LAB POSITIVE MRSA [id number] 04/05/2017 12:47:00 05/05/2017 00:01:00 DIS Outpatient JESÚS CALABRESE MD [facility] LAB POSITIVE MRSA [id number] 03/30/2017 15:30:00 03/30/2017 23:59:59 CLS Preadmit VAN BULLARD FACC, PREM FACTre CCDS [facility] RT SOB [id number] 03/23/2017 11:07:00 03/23/2017 23:59:59 CLS Outpatient POP KRAMER MD [facility] RAD M54.16 [id number] 03/20/2017 13:01:00 03/20/2017 23:59:59 CLS Outpatient POP KRAMER MD [facility] RAD RADICULOPATHY [id number] 02/14/2017 09:48:00 02/15/2017 13:00:00 DIS Outpatient POP KRAMER MD [facility] SDC INFECTION LEFT KNEE [id number] 02/13/2017 13:17:00 02/13/2017 14:47:00 DIS Outpatient POP KRAMER MD [facility] PREOP INFECTED LEFT KNEE [id number] 03/24/2016 11:30:00 04/07/2016 14:18:00 DIS Inpatient BUCK SAUCEDO MD [facility] IRF LEFT KNEE OSTEOARTHRITIS [id number] 03/22/2016 05:58:00 03/24/2016 11:29:00 DIS Inpatient POP KRAMER MD [facility] 4TH LEFT KNEE OA [id number] 03/15/2016 09:47:00 03/15/2016 11:00:00 DIS Outpatient POP KRAMER MD [facility] PREOP LEFT KNEE OA [id number] 07/12/2014 14:04:00 07/15/2014 10:03:00 DIS Inpatient BHARATI BULLARD, JESÚS [facility] 4TH SMALL BOWEL OBSTRUCTION [id number] 03/14/2018 15:13:00 Document Registration [id number] 03/13/2018 17:02:00 Document Registration [id number] 03/12/2018 15:04:00 Document Registration [id number] 10/20/2014 11:50:00 Document Registration [id number] 09/29/2014 14:37:00 Document Registration [id number] 04/04/2012 09:00:00 Document Registration [id number] 01/04/2012 08:49:00 Document Registration [id number] 01/09/2007 12:27:00 Document Registration
--- NOTE | 2018-10-26 18:09 | Diagnostic Imaging Report ---
PROCEDURE: CT head and CT cervical spine without contrast. TECHNIQUE: Multiple contiguous axial images were obtained through the brain and cervical spine without the use of intravenous contrast. Sagittal and coronal reformations through the cervical spine were then performed. Auto Exposure Controls were utilized during the CT exam to meet ALARA standards for radiation dose reduction. INDICATION: Fall from wheelchair. COMPARISON: Previous examination of 07/13/2018. FINDINGS: There is craniotomy on the left. There is some encephalomalacia in the left frontal and left temporal lobe. There is also encephalomalacia in the right parieto-occipital region. No acute intracranial hemorrhage. No mass effect. There is periventricular white matter change. Ventricles are slightly prominent consistent with generalized atrophy. Basal cisterns are clear. Mastoid air cells are clear. There is an air-fluid level in the left maxillary sinus. No evidence of calvarial fractures. IMPRESSION: 1. Surgical changes from craniotomy on the left. Areas of encephalomalacia scattered as described without acute changes when compared to previous exam. 2. There is air-fluid level present in the left maxillary sinus which is a new finding. Dictated by: Dictated on workstation # [id number]
[2018-10-26] MEDS ORDERED: AMOX-358 PO (18:11)
[2018-10-26 19:36] VITALS: BP 103/84
== END 2018-10-26 19:36 | disposition home or self-care (01) ==
LOC: EDUNIT# 17:27 → ER 17:28
DX: S09.90XA Unspecified injury of head, initial encounter (principal); J01.90 Acute sinusitis, unspecified; B96.89 Other specified bacterial agents as the cause of diseases classified elsewhere; I11.0 Hypertensive heart disease with heart failure; I50.9 Heart failure, unspecified; F03.90 Unspecified dementia, unspecified severity, without behavioral disturbance, psychotic disturbance, mood disturbance, and anxiety; K21.9 Gastro-esophageal reflux disease without esophagitis; E11.9 Type 2 diabetes mellitus without complications; R40.2142 Coma scale, eyes open, spontaneous, at arrival to emergency department; R40.2252 Coma scale, best verbal response, oriented, at arrival to emergency department; R40.2362 Coma scale, best motor response, obeys commands, at arrival to emergency department; F32.9 Major depressive disorder, single episode, unspecified; Z87.19 Personal history of other diseases of the digestive system; Z82.49 Family history of ischemic heart disease and other diseases of the circulatory system; Z87.891 Personal history of nicotine dependence; Z98.890 Other specified postprocedural states; W17.89XA Other fall from one level to another, initial encounter; W22.01XA Walked into wall, initial encounter
CPT/HCPCS: 70450; 72125

== ENCOUNTER 2019-07-16 20:52 | Emergency (ER) | payer MEDICARE, MEDICAID ==
[~2019-07-16] VITALS: Ht 172.7 cm; Wt 114.8 kg
[~2019-07-16 20:52] MED LIST changes: +AMOX-358 PO
--- NOTE | 2019-07-16 21:10 | ED Fall/Injury ---
General Chief Complaint: Laceration Stated Complaint: FALL Source: patient, EMS, half-way records Exam Limitations: no limitations History of Present Illness Date Seen by Provider: Jul 16, 2019 Time Seen by Provider: 21:07 Initial Comments To ER per EMS from [facility] with reports of fall. He has a laceration to the posterior left elbow, pain the left elbow left shoulder. He believes this to be arthritis pain. Also reports that he hit his head but no loss of consciousness, he denies headache or neck pain. Occurred: just prior to arrival Severity: moderate Injuries/Pain Location: head, upper extremity Context: slipped Loss of Consciousness: no loss of consciousness Associated Symptoms (Fall): No Abdominal Pain, No Chest Pain; Confusion (per baseline); No Headache Allergies and Home Medications Allergies Coded Allergies: No Known Drug Allergies (Unverified , 10/26/18) Home Medications Amoxicillin/Potassium Clav 1 Each Tablet, 1 EACH PO BID Prescribed by: LEONARDO DEWITT on 10/26/181810 Citalopram Hydrobromide 10 Mg Tablet, 10 MG PO DAILY, (Reported) Docusate Sodium 100 Mg Capsule, 100 MG PO DAILY, (Reported) Naproxen 500 Mg Tablet, 500 MG PO DAILY, (Reported) Patient Home Medication List Home Medication List Reviewed: Yes Review of Systems Review of Systems Constitutional: see HPI Eyes: No Symptoms Reported Ears, Nose, Mouth, Throat: no symptoms reported Respiratory: no symptoms reported Cardiovascular: no symptoms reported Genitourinary: no symptoms reported Musculoskeletal: see HPI Skin: no symptoms reported Psychiatric/Neurological: No Symptoms Reported Past Lhpatuw-Sldojn-Nshybi Hx Patient Social History Alcohol Beverage of Choice: Beer Type Used: Cigarettes Former Smoker, Quit: Mar 15, 2004 2nd Hand Smoke Exposure: No Recent Foreign Travel: No Contact w/Someone Who Travel: No Recent Hopitalizations: No Immunizations Up To Date Tetanus Booster (TDap): Unknown PED Vaccines UTD: No Date of Pneumonia Vaccine: May 22, 2014 Date of Influenza Vaccine: May 22, 2014 Seasonal Allergies Seasonal Allergies: No Past Medical History Surgeries: Yes (HEAD INJURY - BLOOD CLOT IN BRAIN REMOVED, HERNIA REPAIR) Joint Replacement, Neurological, Orthopedic Respiratory: No 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, CONGESTIVE HEART FAILURE) Hypertension Neurological: Yes (BRAIN INJURY IN 1978, HAD SEIZURES FOR A FEW WEEKS AFTER, NONE SINCE) Dementia, Traumatic Brain Injury Reproductive Disorders: No Sexually Transmitted Disease: No HIV/AIDS: No Genitourinary: No Gastrointestinal: Yes (HX OF BOWEL OBSTRUCTION IN 2014) Gastroesophageal Reflux, Obstructive Bowel, Chronic Constipation Musculoskeletal: Yes Arthritis Endocrine: Yes Diabetes, Non-Insulin dep HEENT: Yes (READING GLASSES) Loss of Vision: Bilateral Hearing Impairment: Hard of Hearing Cancer: No Psychosocial: Yes Sleep Difficulties, Depression Integumentary: No Blood Disorders: No Adverse Reaction/Blood Tranf: No Family Medical History Arthritis 19 FATHER G8 SISTER Cataracts 19 FATHER Dementia 19 FATHER Hypertension 19 FATHER 19 MOTHER G8 BROTHER Myocardial infarction G8 BROTHER Thyroid disease 19 FATHER Physical Exam Vital Signs Vital Signs - First Documented 07/16/19 20:55 Temp 36.8 Pulse 87 Resp 20 B/P (MAP) 117/64 (81) Pulse Ox 98 Capillary Refill : Less Than 3 Seconds Height, Weight, BMI Height: 5'11.00" Weight: 240lbs. oz. 108.994959qs; 38.6 BMI Method:Stated General Appearance: WD/WN, no apparent distress, other (talkative alert pleasant, oriented to person place time and situation.) HEENT: PERRL/EOMI, normal ENT inspection Neck: non-tender, full range of motion Respiratory: no respiratory distress, no accessory muscle use Gastrointestinal: normal bowel sounds, non tender Extremities: normal range of motion, non-tender Neurologic/Psychiatric: alert, normal mood/affect, oriented x 3 Skin: normal color, warm/dry, other (1 cm laceration to the posterior left elbow anesthetized with 1 mL of lidocaine 1% without epinephrine scrubbed with chlorhexidine/saline solution no foreign bodies identified then closed with 2 simple interrupted sutures size 4-0 Prolene covered with antibiotic ointment 2 x 2 and Coban.) Shelby Coma Score Best Eye Response: (4) Open Spontaneously Best Verbal Response: (5) Oriented Best Motor Response: (6) Obeys Commands Shelby Total: 15 Procedures/Interventions Date of ETT Placement: Mar 16, 2018 Time of ETT Placement: 1200 Progress/Results/Core Measures Results/Orders My Orders Orders - LEONARDO DEWITT APRN Ct Head/Cervical Spine Wo (07/16/19 21:06) Shoulder, Left, 3 Views (07/16/19 21:06) Elbow, Left, 3 Views (07/16/19 21:06) Shoulder, Right, 3 Views (07/16/19 21:54) Vital Signs/I&O 07/16/19 20:55 Temp 36.8 Pulse 87 Resp 20 B/P (MAP) 117/64 (81) Pulse Ox 98 Departure Communication (Admissions) It sounds like her baseline he may have a little confusion, but at this moment he is lucid. CT head cervical spine unremarkable Impression Primary Impression: Fall at half-way Qualified Codes: W19.XXXA - Unspecified fall, initial encounter; Y92.129 - Unspecified place in half-way as the place of occurrence of the external cause Additional Impression: Elbow laceration Qualified Codes: S51.012A - Laceration without foreign body of left elbow, initial encounter Disposition: XFER SNF Condition: Stable Departure-Patient Inst. Decision time for Depature: 22:12 Referrals: JESÚS CALABRESE MD (PCP) Primary Care Physician ZHANG PAULINO APRN (Family) Primary Care Physician Patient Instructions: Wound Care, Preventing Falls Add. Discharge Instructions: 1. Keep this bandage in place until tomorrow then you can remove it, you can let this area get wet such as in the shower N water run over it but don't soak it in water such as a bathtub until the stitches have been removed. You can remove the stitches at the half-way in about 10 days. Return to ER for any sign of infection such as redness or swelling at the site. All discharge instructions reviewed with patient and/or family. Voiced understanding. LEONARDO DEWITT APRN Jul 16, 2019 21:10 POS
--- NOTE | 2019-07-16 21:39 | Diagnostic Imaging Report ---
PROCEDURE: CT head and CT cervical spine without contrast. TECHNIQUE: Multiple contiguous axial images were obtained through the brain and cervical spine without the use of intravenous contrast. Sagittal and coronal reformations through the cervical spine were then performed. Auto Exposure Controls were utilized during the CT exam to meet ALARA standards for radiation dose reduction. INDICATION: Fall. COMPARISON: CT head and cervical spine without contrast 10/26/2018. FINDINGS: CT HEAD: Stable encephalomalacia in the left temporal, left frontal and right parietal lobes. Left convexity craniotomy. Advanced generalized cerebral and cerebellar parenchymal volume loss. Advanced leukoaraiosis. No intracranial hemorrhage, mass effect, hydrocephalus or extra-axial fluid collections. No CT evidence for territorial infarction. No acute osseous findings. CT cervical spine: Normal alignment. Vertebral body heights preserved. No fractures. Mild to moderate diffuse degenerative endplate changes. No evidence of high-grade spinal canal narrowing on soft tissue windows. The visualized paravertebral soft tissues are unremarkable. IMPRESSION: No acute intracranial or cervical spine CT findings. Chronic findings as above. Dictated by: Dictated on workstation # [id number]
[2019-07-16] MEDS ORDERED: TETANUS,DIPTH,PERTUSS P/F (BOOSTRIX) 0.5 ML VIAL IM ONE (22:15)
[2019-07-16 22:25] VITALS: BP 102/79
--- NOTE | 2019-07-17 07:03 | Diagnostic Imaging Report ---
INDICATION: Fall. FINDINGS: The alignment is normal. There is no fracture or dislocation. There is focal infiltrate in the right upper lobe. Soft tissues are unremarkable. IMPRESSION: No focal abnormality of the right shoulder. Findings suspect for right upper lobe infiltrate Dictated by: Dictated on workstation # [id number]
--- NOTE | 2019-07-17 07:03 | Diagnostic Imaging Report ---
INDICATION: Pain. FINDINGS: The alignment of the shoulder is normal. There is no fracture or dislocation. Soft tissues are unremarkable. IMPRESSION: No focal abnormality of the left shoulder. Dictated by: Dictated on workstation # [id number]
--- NOTE | 2019-07-17 07:07 | Diagnostic Imaging Report ---
INDICATION: Pain. 3 views were obtained. FINDINGS: The alignment is normal. There is no fracture or dislocation. Soft tissues are unremarkable. IMPRESSION: No acute fracture or dislocation. Dictated by: Dictated on workstation # [id number]
== END 2019-07-16 22:40 ==
LOC: EDUNIT# 20:52 → ER 20:53
DX: S51.012A Laceration without foreign body of left elbow, initial encounter (principal); I11.0 Hypertensive heart disease with heart failure; I50.9 Heart failure, unspecified; F03.90 Unspecified dementia, unspecified severity, without behavioral disturbance, psychotic disturbance, mood disturbance, and anxiety; K21.9 Gastro-esophageal reflux disease without esophagitis; E11.9 Type 2 diabetes mellitus without complications; F32.9 Major depressive disorder, single episode, unspecified; Z23 Encounter for immunization; Z87.820 Personal history of traumatic brain injury; Z87.891 Personal history of nicotine dependence; Z82.49 Family history of ischemic heart disease and other diseases of the circulatory system; W01.10XA Fall on same level from slipping, tripping and stumbling with subsequent striking against unspecified object, initial encounter; Y92.129 Unspecified place in nursing home as the place of occurrence of the external cause
CPT/HCPCS: 12001; 70450; 72125; 73030; 73080; 90471; 90715

== ENCOUNTER 2020-01-12 20:49 | Inpatient (IN) | payer MEDICARE, MEDICAID ==
[~2020-01-12] VITALS: Ht 182.9 cm; Wt 110.3 kg
--- NOTE | 2020-01-12 20:55 | ED GI ---
General Chief Complaint: Abdominal/GI Problems Stated Complaint: CONSTIPATION Source of Information: EMS, Half-Way Records Exam Limitations: No Limitations History of Present Illness Date Seen by Provider: Jan 12, 2020 Time Seen by Provider: 20:52 Initial Comments Demented patient brought in by EMS from [facility] with reports of abdominal distention and lack of bowel movement for a few days. They had an outpatient x-ray done today which showed apparently some "twisting of the bowels". Patient has vomited about 4 times he states, but is not currently nauseous nor does he have abdominal pain. Timing/Duration: 1-2 Days Severity/Quality: Moderate Location: Generalized Abdomen Radiation: No Radiation Activities at Onset: None Associated Symptoms: Nausea/Vomiting Allergies and Home Medications Allergies Coded Allergies: No Known Drug Allergies (Unverified , 10/26/18) Home Medications Amoxicillin/Potassium Clav 1 Each Tablet, 1 EACH PO BID Prescribed by: LEONARDO DEWITT on 10/26/181810 Citalopram Hydrobromide 10 Mg Tablet, 10 MG PO DAILY, (Reported) Docusate Sodium 100 Mg Capsule, 100 MG PO DAILY, (Reported) Naproxen 500 Mg Tablet, 500 MG PO DAILY, (Reported) Patient Home Medication List Home Medication List Reviewed: Yes Review of Systems Review of Systems Constitutional: see HPI EENTM: No Symptoms Reported Respiratory: No Symptoms Reported Cardiovascular: No Symptoms Reported Gastrointestinal: See HPI, Abdominal Pain, Nausea, Vomiting Genitourinary: No Symptoms Reported Musculoskeletal: no symptoms reported Skin: no symptoms reported Psychiatric/Neurological: No Symptoms Reported Endocrine: No Symptoms Reported Hematologic/Lymphatic: No Symptoms Reported Past Enrjabn-Ddqphj-Xklnyj Hx Patient Social History Alcohol Beverage of Choice: Beer Type Used: Cigarettes Former Smoker, Quit: Mar 15, 2004 2nd Hand Smoke Exposure: No Recent Hopitalizations: No Immunizations Up To Date Tetanus Booster (TDap): More than 5yrs PED Vaccines UTD: No Date of Pneumonia Vaccine: May 09, 2019 Date of Influenza Vaccine: May 16, 2019 Seasonal Allergies Seasonal Allergies: No Past Medical History Surgeries: Yes (HEAD INJURY - BLOOD CLOT IN BRAIN REMOVED, HERNIA REPAIR) Joint Replacement, Neurological, Orthopedic Respiratory: No 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, CONGESTIVE HEART FAILURE) Hypertension Neurological: Yes (BRAIN INJURY IN 1978, HAD SEIZURES FOR A FEW WEEKS AFTER, N ONE SINCE) Dementia, Traumatic Brain Injury Reproductive Disorders: No Sexually Transmitted Disease: No HIV/AIDS: No Genitourinary: No Gastrointestinal: Yes (HX OF BOWEL OBSTRUCTION IN 2014) Gastroesophageal Reflux, Obstructive Bowel, Chronic Constipation Musculoskeletal: Yes Arthritis Endocrine: Yes Diabetes, Non-Insulin dep HEENT: Yes (READING GLASSES) Loss of Vision: Bilateral Hearing Impairment: Hard of Hearing Cancer: No Psychosocial: Yes Sleep Difficulties, Depression Integumentary: No Blood Disorders: No Adverse Reaction/Blood Tranf: No Family Medical History Arthritis 19 FATHER G8 SISTER Cataracts 19 FATHER Dementia 19 FATHER Hypertension 19 FATHER 19 MOTHER G8 BROTHER Myocardial infarction G8 BROTHER Thyroid disease 19 FATHER Physical Exam Vital Signs Vital Signs - First Documented 01/12/20 20:51 Temp 36.4 Pulse 89 Resp 17 B/P (MAP) 115/93 (100) O2 Delivery Room Air Capillary Refill : Height/Weight/BMI Height: 5'11.00" Weight: 240lbs. oz. 108.544705an; 38.00 BMI Method:Stated General Appearance: WD/WN, no apparent distress, other (he is alert, no distress, his abdomen is distended with high-pitched hypoactive bowel sounds) Neck: non-tender, full range of motion Respiratory: no respiratory distress, no accessory muscle use Cardiovascular: regular rate, rhythm, no murmur Gastrointestinal: soft, tenderness (Minor epigastric tenderness to palpation) Extremities: normal range of motion, non-tender Neurologic/Psychiatric: alert Skin: normal color, warm/dry Procedures/Interventions Date of ETT Placement: Mar 16, 2018 Time of ETT Placement: 1200 Progress/Results/Core Measures Results/Orders Lab Results Laboratory Tests Test 01/12/20 20:55 Range/Units White Blood Count 15.2 H 4.3-11.0 10^3/uL Red Blood Count 4.51 4.35-5.85 10^6/uL Hemoglobin 13.0 L 13.3-17.7 G/DL Hematocrit 40 40-54 % Mean Corpuscular Volume 89 80-99 FL Mean Corpuscular Hemoglobin 29 25-34 PG Mean Corpuscular Hemoglobin Concent 32 32-36 G/DL Red Cell Distribution Width 18.4 H 10.0-14.5 % Platelet Count 216 130-400 10^3/uL Mean Platelet Volume 13.6 H 7.4-10.4 FL Neutrophils (%) (Auto) 59 42-75 % Lymphocytes (%) (Auto) 25 12-44 % Monocytes (%) (Auto) 15 H 0-12 % Eosinophils (%) (Auto) 0 0-10 % Basophils (%) (Auto) 0 0-10 % Neutrophils # (Auto) 9.1 H 1.8-7.8 X 10^3 Lymphocytes # (Auto) 3.8 1.0-4.0 X 10^3 Monocytes # (Auto) 2.3 H 0.0-1.0 X 10^3 Eosinophils # (Auto) 0.0 0.0-0.3 10^3/uL Basophils # (Auto) 0.1 0.0-0.1 10^3/uL Sodium Level 143 135-145 MMOL/L Potassium Level 3.5 L 3.6-5.0 MMOL/L Chloride Level 109 H 98-107 MMOL/L Carbon Dioxide Level 23 21-32 MMOL/L Anion Gap 11 5-14 MMOL/L Glucose Level 97 70-105 MG/DL Calcium Level 9.1 8.5-10.1 MG/DL Corrected Calcium 9.0 8.5-10.1 MG/DL Total Bilirubin 0.4 0.1-1.0 MG/DL Total Protein 8.1 6.4-8.2 GM/DL Albumin 4.1 3.2-4.5 GM/DL My Orders Orders - LEONARDO DEWITT APRN Ct Abdomen/Pelvis Wo (01/12/20 20:51) Cbc With Automated Diff (01/12/20 20:51) Comprehensive Metabolic Panel (01/12/20 20:51) Lipase (01/12/20 20:51) Protime With Inr (01/12/20 20:51) Ua Culture If Indicated (01/12/20 20:51) Chest 1 View, Ap/Pa Only (01/12/20 20:51) Ed Iv/Invasive Line Start (01/12/20 20:51) Manual Differential (01/12/20 20:55) Vital Signs/I&O 01/12/20 20:51 Temp 36.4 Pulse 89 Resp 17 B/P (MAP) 115/93 (100) O2 Delivery Room Air Departure Communication (Admissions) Time/Spoke to Admitting Phy: 21:[address] Leone who has seen the patient here in the emergency room, I spoke with Dr. Valdes, will admit, nasogastric tube if he'll tolerate, nothing by mouth with IV fluids, repeat exam in the morning. Impression Primary Impression: Colon distention Additional Impression: Nausea & vomiting Disposition: ADMITTED INPATIENT Condition: Stable Admissions Decision to Admit Reason: Admit from ER (General) Decision to Admit/Date: Jan 12, 2020 Time/Decision to Admit Time: 21:56 Departure-Patient Inst. Referrals: JESÚS CALABRESE MD (PCP) Primary Care Physician ZHANG PAULINO APRN (Family) Primary Care Physician LEONARDO DEWITT APRN Jan 12, 2020 20:55
[2020-01-12 21:34] LABS: BASOPHILS # (AUTO) 0.1 10^3/uL (0.0-0.1); BASOPHILS % (AUTO) 0 % (0-10); EOSINOPHILS % (AUTO) 0 % (0-10); HEMATOCRIT 40 % (40-54); LYMPHOCYTES # (AUTO) 3.8 X 10^3 (1.0-4.0); LYMPHOCYTES % (AUTO) 25 % (12-44); MEAN CORPUSCULAR HEMOGLOBIN 29 PG (25-34); MEAN CORPUSCULAR HGB CONC 32 G/DL (32-36); MEAN CORPUSCULAR VOLUME 89 FL (80-99); MEAN PLATELET VOLUME 13.6 FL (7.4-10.4); MONOCYTES # (AUTO) 2.3 X 10^3 (0.0-1.0); MONOCYTES % (AUTO) 15 % (0-12); NEUTROPHILS # (AUTO) 9.1 X 10^3 (1.8-7.8); NEUTROPHILS % (AUTO) 59 % (42-75); PLATELET COUNT 216 10^3/uL (130-400); RED CELL DISTRIBUTION WIDTH 18.4 % (10.0-14.5); WHITE BLOOD COUNT 15.2 10^3/uL (4.3-11.0)
--- NOTE | 2020-01-12 21:40 | Diagnostic Imaging Report ---
INDICATION: Nausea and vomiting for 2 days. Portable chest is markedly limited due to body habitus and portable technique as well as positioning. The heart size and vascularity are normal. No infiltrates are evident. There is no effusion or pneumothorax. There are multiple air filled loops of large and small bowel beneath the diaphragm which is likely due to an ileus. Obstruction cannot be excluded. IMPRESSION: No acute abnormality in the chest is evident. Dictated by: Dictated on workstation # [id number]
--- NOTE | 2020-01-12 21:45 | Diagnostic Imaging Report ---
PROCEDURE: CT abdomen and pelvis without contrast. TECHNIQUE: Multiple contiguous axial images were obtained through the abdomen and pelvis without the use of intravenous contrast. Auto Exposure Controls were utilized during the CT exam to meet ALARA standards for radiation dose reduction. INDICATION: Nausea and vomiting for 2 days. There is retained fecal material in the rectosigmoid colon. There is marked gaseous distention of the entire colon. No obstructing lesion is demonstrated. No volvulus is evident. There are several mildly edematous nondilated loops of jejunum seen. No small bowel obstruction is evident. The liver, gallbladder and bile ducts are normal. The spleen, pancreas and adrenals are normal. Kidneys, ureters and bladder are normal. IMPRESSION: There is mild fecal impaction in the rectosigmoid colon. There is the appearance of generalized ileus of the colon. There is a mild small bowel enteritis which is nonobstructive. Dictated by: Dictated on workstation # [id number]
[2020-01-12 21:50] LABS: ALBUMIN 4.1 GM/DL (3.2-4.5); POTASSIUM 3.5 MMOL/L (3.6-5.0)
[2020-01-12 21:51] LABS: CALCIUM 9.1 MG/DL (8.5-10.1)
[2020-01-12 21:53] LABS: TOTAL PROTEIN 8.1 GM/DL (6.4-8.2)
[2020-01-12 21:54] LABS: BILIRUBIN,TOTAL 0.4 MG/DL (0.1-1.0)
[2020-01-12 21:55] LABS: INR 1.1 (0.8-1.4); PROTHROMBIN TIME PATIENT 14.8 SEC (12.2-14.7)
[2020-01-12 21:56] LABS: CREATININE SERUM 1.31 MG/DL (0.60-1.30)
--- NOTE | 2020-01-12 21:59 | Consultation - Surgery ---
History of Present Illness History of Present Illness Patient Consulted On(jamari/time) 01/12/20 21:54 Time Seen by Provider: 21:42 History of Present Illness Surgery asked to consult regarding abdominal distention. HPI per ED: Demented patient brought in by EMS from [facility] with reports of abdominal distention and lack of bowel movement for a few days. They had an outpatient x-ray done today which showed apparently some "twisting of the bowels". Patient has vomited about 4 times he states, but is not currently nauseous nor does he have abdominal pain. Timing/Duration: 1-2 Days Severity/Quality: Moderate Location: Generalized Abdomen Radiation: No Radiation Activities at Onset: None Associated Symptoms: Nausea/Vomiting When I spoke to pt he complained of abd pain and distention; states his belly has never been this big before and doesn't remember pain like this before. He cannot tell me what year or month it is; he does know where he is. Allergies and Home Medications Allergies Coded Allergies: No Known Drug Allergies (Unverified , 10/26/18) Home Medications Amoxicillin/Potassium Clav 1 Each Tablet, 1 EACH PO BID Prescribed by: LEONARDO DEWITT on 10/26/181810 Citalopram Hydrobromide 10 Mg Tablet, 10 MG PO DAILY, (Reported) Docusate Sodium 100 Mg Capsule, 100 MG PO DAILY, (Reported) Naproxen 500 Mg Tablet, 500 MG PO DAILY, (Reported) Patient Home Medication List Home Medication List Reviewed: Yes Past Ujiouob-Hxyrkz-Chubaq Hx Patient Social History Alcohol Use: Past History Number of Drinks Today: AA Recreational Drug Use: No Smoking Status: Former Smoker Former Smoker, Quit: Mar 15, 2004 Type Used: Cigarettes 2nd Hand Smoke Exposure: No Recent Foreign Travel: No Contact w/Someone Who Travel: No Recent Infectious Disease Expo: No Recent Hopitalizations: No Immunizations Up To Date Tetanus Booster (TDap): More than 5yrs PED Vaccines UTD: No Date of Pneumonia Vaccine: May 09, 2019 Date of Influenza Vaccine: May 16, 2019 Seasonal Allergies Seasonal Allergies: No Surgeries History of Surgeries: Yes (HEAD INJURY - BLOOD CLOT IN BRAIN REMOVED, HERNIA REPAIR) Surgeries: Joint Replacement, Neurological, Orthopedic Respiratory History of Respiratory Disorde: No Cardiovascular 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, CONGESTIVE HEART FAILURE) Cardiac Disorders: Hypertension Neurological History of Neurological Disord: Yes (BRAIN INJURY IN 1978, HAD SEIZURES FOR A FEW WEEKS AFTER, NONE SINCE) Neurological Disorders: Dementia, Traumatic Brain Injury Reproductive System Hx Reproductive Disorders: No Sexually Transmitted Disease: No HIV/AIDS: No Genitourinary History of Genitourinary Disor: No Gastrointestinal History of Gastrointestinal Di: Yes (HX OF BOWEL OBSTRUCTION IN 2014) Gastrointestinal Disorders: Gastroesophageal Reflux, Obstructive Bowel, Chronic Constipation Musculoskeletal History of Musculoskeletal Dis: Yes Musculoskeletal Disorders: Arthritis Endocrine History of Endocrine Disorders: Yes Endocrine Disorders: Diabetes, Non-Insulin dep HEENT History of HEENT Disorders: Yes (READING GLASSES) Loss of Vision: Bilateral Hearing Impairment: Hard of Hearing Cancer History of Cancer: No Psychosocial History of Psychiatric Problem: Yes Behavioral Health Disorders: Sleep Difficulties, Depression Integumentary History of Skin or Integumenta: No Blood Transfusions History of Blood Disorders: No Adverse Reaction to a Blood Tr: No Family Medical History Significant Family History: Heart Disease, Hypertension Family Medial History: Arthritis 19 FATHER G8 SISTER Cataracts 19 FATHER Dementia 19 FATHER Hypertension 19 FATHER 19 MOTHER G8 BROTHER Myocardial infarction G8 BROTHER Thyroid disease 19 FATHER Review of Systems-General Constitutional: diaphoresis, malaise, weakness EENTM: No blurred vision, No double vision, No mouth pain, No mouth swelling, No epistaxis Respiratory: No dyspnea on exertion, No hemoptysis, No short of breath Cardiovascular: No chest pain, No edema, No palpitations Gastrointestinal: No abdominal pain; constipation; No jaundice, No loss of appetite; nausea, vomiting Genitourinary: No dysuria, No frequency, No hematuria Musculoskeletal: joint pain, joint swelling, muscle pain, muscle stiffness Skin: No change in color, No change in hair/nails Psychiatric/Neurological: Denies Anxiety, Denies Depressed, Denies Seizure, Denies Tremors; Other (pt has dementia) Other pt denied any hx of abnormal bleeding or bruising Physical Exam-General Problems Physical Exam Vital Signs Vital Signs - First Documented 01/12/20 20:51 Temp 36.4 Pulse 89 Resp 17 B/P (MAP) 115/93 (100) O2 Delivery Room Air Capillary Refill : Less Than 3 Seconds General Appearance: WD/WN, mild distress, obese Eyes: Bilateral Eye PERRL, Bilateral Eye EOMI HEENT: pharynx normal; No scleral icterus (R), No scleral icterus (L); other (poor dentition) Neck: non-tender, supple Respiratory: chest non-tender, lungs clear, normal breath sounds, no respiratory distress, no accessory muscle use Cardiovascular: regular rate, rhythm, no murmur Gastrointestinal: no organomegaly, abnormal bowel sounds (high pitch and faint), distended, guarding, tenderness (diffusely) Back: no CVA tenderness, no vertebral tenderness Extremities: no pedal edema, no calf tenderness, normal capillary refill Neurologic/Psychiatric: floor coverer II-XII nml as tested, normal mood/affect Skin: normal color, warm/dry Lymphatic: no adenopathy (neck, axilla or groin) Data Review Labs Laboratory Tests 01/12/20 20:55: White Blood Count 15.2H, Red Blood Count 4.51, Hemoglobin 13.0L, Hematocrit 40, Mean Corpuscular Volume 89, Mean Corpuscular Hemoglobin 29, Mean Corpuscular Hemoglobin Concent 32, Red Cell Distribution Width 18.4H, Platelet Count 216, Mean Platelet Volume 13.6H, Neutrophils (%) (Auto) 59, Lymphocytes (%) (Auto) 25, Monocytes (%) (Auto) 15H, Eosinophils (%) (Auto) 0, Basophils (%) (Auto) 0, Neutrophils # (Auto) 9.1H, Lymphocytes # (Auto) 3.8, Monocytes # (Auto) 2.3H, Eosinophils # (Auto) 0.0, Basophils # (Auto) 0.1, Sodium Level 143, Potassium Level 3.5L, Chloride Level 109H, Glucose Level 97, Calcium Level 9.1, Corrected Calcium 9.0, Total Protein 8.1, Albumin 4.1 Assessment/Plan Assessment/Plan Assessment/Plan Abdominal Distention Large bowel Ileus Dementia Nausea and Vomiting Pt has at least a large bowel ileus; cannot really see any swirling in mesentary and therefore no signs of volvulus. His colon is very distended; has some liquid fecal material in distal sigmoid and rectum. BERENICE did not demonstrate any blockage. The CT did show gastric dilation and full of food material. Pt needs to be admitted, IV fluids, pain control, anti-emetics, NGT and should also walk when he can. Repeat AAS might not be of much help because colon is so dilated; will need to monitor abd distention, pain and labs. I will follow along. I do think I see one area of decompressed large bowel (radiologist didn't agree) and am not sure the significance of this finding. BUCK BENITEZ DO Jan 12, 2020 21:59
[2020-01-12 22:17] LABS: EOSINOPHILS % (MANUAL) 1 %; LYMPHOCYTES % (MANUAL) 27 %; MONOCYTES % (MANUAL) 14 %; MYELOCYTES % 1 %; NEUTROPHILS % (MANUAL) 57 %; RBC MORPH NORMAL
--- NOTE | 2020-01-12 23:30 | NUR ---
AURORA MARTINS admitted to room 415-1, with an admitting diagnosis of .N/V Colonic Ileus,& Fecal Impaction, on 01/12/20 from ER via cart, accompanied by ER staff. AURORA MARTINS introduced to surroundings, call light, bed controls, phone, TV, temperature control, lights, meal times, smoking policy, visitor policy, side rail policy, bathrooms and showers. Patient Rights given to patient in the handbook. AURORA MARTINS verbalizes understanding that [facility] is not responsible for the loss or damage to any personal effects or valuables that are kept in the patients posession during their hospitalization. The following Patient Care Plans were discussed with the pt: Discharge Planning, fluid balance,[discomfort, and pain control. AURORA MARTINS verbalizes understanding of Interdisciplinary Patient Education. Patient was informed about the Rapid Response Team and its purpose. pt refusing to have NG tube. pt denies Nausea at this time, Pt has tick of tapping forehead and rubbing nose. NG not placed at this time.
[2020-01-12 23:45] VITALS: BP 130/78
[2020-01-12] MEDS ORDERED: fentaNYL INJECTION 100 MCG/2 ML AMP IV PRN (23:45)
[2020-01-12] MEDS ORDERED: LORazepam INJ 2 MG/ML (ATIVAN) VIAL IV PRN (23:45)
[2020-01-12] MEDS ORDERED: CATHETER FLUSH 10 ML SYR IV PRN (23:45)
[2020-01-12] MEDS ORDERED: ONDANSETRON 4 MG/2 ML (SDV) Z0FRAN IV PRN (23:45)
[2020-01-13] VITALS (7 sets, daily range): BP systolic 101–130; BP diastolic 61–78
--- NOTE | 2020-01-13 00:15 | NUR ---
Daughter called and informed of pt status and admission questions completed
[2020-01-13] MEDS: NS W/KCL 20 MEQ/L 1,000 ML IV SCH ×3 (00:55→20:38)
[2020-01-13] MEDS: FLEET ENEMA ADULT 1 EA BTL PR PRN ×2 (01:00→02:54)
[2020-01-13] MEDS: CATHETER FLUSH 10 ML SYR IV SCH ×3 (05:30→20:39)
[2020-01-13 05:58] LABS: BASOPHILS # (AUTO) 0.1 10^3/uL (0.0-0.1); BASOPHILS % (AUTO) 0 % (0-10); EOSINOPHILS % (AUTO) 0 % (0-10); HEMATOCRIT 38 % (40-54); HEMOGLOBIN 12.2 G/DL (13.3-17.7); LYMPHOCYTES # (AUTO) 3.3 X 10^3 (1.0-4.0); LYMPHOCYTES % (AUTO) 24 % (12-44); MEAN CORPUSCULAR HEMOGLOBIN 29 PG (25-34); MEAN CORPUSCULAR HGB CONC 32 G/DL (32-36); MEAN CORPUSCULAR VOLUME 89 FL (80-99); MONOCYTES # (AUTO) 2.1 X 10^3 (0.0-1.0); MONOCYTES % (AUTO) 15 % (0-12); NEUTROPHILS # (AUTO) 8.5 X 10^3 (1.8-7.8); NEUTROPHILS % (AUTO) 61 % (42-75); PLATELET COUNT 172 10^3/uL (130-400); RED CELL DISTRIBUTION WIDTH 18.3 % (10.0-14.5)
[2020-01-13 05:59] LABS: MEAN PLATELET VOLUME 13.6 FL (7.4-10.4)
[2020-01-13 06:15] LABS: ALBUMIN 3.7 GM/DL (3.2-4.5); CHLORIDE 112 MMOL/L (98-107); POTASSIUM 3.5 MMOL/L (3.6-5.0); SODIUM 142 MMOL/L (135-145)
[2020-01-13 06:16] LABS: CALCIUM 8.6 MG/DL (8.5-10.1)
[2020-01-13 06:17] LABS: GLUCOSE 105 MG/DL (70-105); TOTAL PROTEIN 7.3 GM/DL (6.4-8.2)
[2020-01-13 06:18] LABS: CARBON DIOXIDE 21 MMOL/L (21-32)
[2020-01-13 06:19] LABS: BILIRUBIN,TOTAL 0.4 MG/DL (0.1-1.0)
[2020-01-13 06:21] LABS: ALKALINE PHOSPHATASE 82 U/L (40-136); CREATININE SERUM 1.18 MG/DL (0.60-1.30); GFR ESTIMATED > 60
[2020-01-13 06:22] LABS: BUN/CREATININE RATIO 22
[2020-01-13 06:24] LABS: ALANINE AMINOTRANSFERASE 8 U/L (0-55)
[2020-01-13] MEDS ORDERED: DOCU-143 PO (10:40)
[2020-01-13] MEDS ORDERED: ONDN4T PO (10:40)
[2020-01-13] MEDS ORDERED: [UNRECOGNIZED DRUG - OTHER] PO (10:40)
[2020-01-13] MEDS ORDERED: POLY15DR35 OU (10:40)
[2020-01-13] MEDS ORDERED: MENT71OI TP (10:40)
[2020-01-13] MEDS ORDERED: ACET-2267 PO (10:40)
[2020-01-13] MEDS ORDERED: POLY17PO6 PO (10:40)
[2020-01-13] MEDS ORDERED: NFCHLORHGL PO (10:40)
[2020-01-13] MEDS ORDERED: SERT50TA9 PO (10:40)
[2020-01-13] MEDS ORDERED: L. A1TAB10 PO (10:40)
--- NOTE | 2020-01-13 10:41 | NUR ---
I CALLED [facility] AND HAD THEM FAX OVER THE MEDICATION LIST FOR THE PT- THEY SENT THE ORDER SUMMARY REPORT AND THAT IS WHAT I USED TO COMPLETE THE MED REC. I WILL ATTACH A COPY TO THE PATIENTS CHART
--- NOTE | 2020-01-13 11:01 | NUR ---
RD ASSESSMENT PMHx: HTN; TBI; CHF; GERD; obstructive bowel; chronic constipation; DM PT INTERACTION: Pt was awake and pleasant during nutrition assessment. Note pt has dementia and had family present at bedside. Pt states current appetite is pretty poor and has been for the past week. Note pt currently NPO, per chart review. Pt states following a regular diet at home, and has no issues with chewing/swallowing food, despite missing teeth. Pt states some recent issues with nausea and vomiting. Pt states no recent issues with constipation or diarrhea. Note last BM was 01/12, and pt not currently on bowel regimen per chart review. Pt states no recent wt changes. Note recent 10# wt loss x6mon, per chart review. Pt states current DM management is good "far as we know." Note unable to determine recent HbA1c, per chart review. ABNORMAL NUTRITION-RELATED LAB VALUES LOW: K 3.5 HIGH: Cl 112 Est. kcal needs: 3283-2793 kcal | 15-18 kcal/kg Est. Pro needs: 88-110 g Pro | 0.8-1.0 g Pro/kg PES STATEMENT: Inadequate oral intake (NI-2.1) related to loss of appetite | nausea | vomiting | NPO status as evidenced by pt (family) interview | chart review INTERVENTION: Note pt currently NPO. Would recommend advancing diet when medically able and as tolerated. Due to pt's dementia, did not offer DM education at this time. Will attempt again prior to discharge. Will continue to follow and reassess as pt needs, intake, and status change. MONITOR/EVALUATE: PO Intake; Plan of Care; Hydration Status; Weight Status; Lab Values Sangita Jolley, MS, RD, LD
--- NOTE | 2020-01-13 11:42 | NUR ---
PT HAS HAD 2 INCONT BMS -- STOOLS ARE LOOSE-- PT DENIES ANY NAUSEA OR VOMITING -- DENIES ANY ABD DISCOMFORT Addendum: 01/13/20 at 1149 by DK COBOS RN ABD IS ROUND, SOFT, NO TENDERNESS
--- NOTE | 2020-01-13 13:26 | History & Physical-Hospitalist ---
History of Present Illness HPI/Chief Complaint Eliel Pickering is a 74-year-old male with past medical history of dementia, depression, who presented from [facility] with abdominal distention. They reported that he had not had a bowel movement in a few days and was becoming more distended. He reportedly threw up a few times. He denies any abdominal pain. He says he feels a little more distended than usual. He denies any nausea at this time. He denies any fevers or chills. He denies any chest pain. He denies any shortness of breath or cough. He denies any leg swelling. Source: patient, family Exam Limitations: no limitations Date Seen 01/13/20 Time Seen by a Provider: 09:55 Attending Physician Mykel Rivera MD PCP Mayito Rinaldi MD Referring Physician Date of Admission Jan 12, 2020 at 21:50 Home Medications & Allergies Home Medications Reviewed patient Home Medication Reconciliation performed by pharmacy medication reconciliations reprographics technician and/or nursing. Patients Allergies have been reviewed. Allergies Allergies Coded Allergies No Known Drug Allergies (Unverified10/26/18) Past Bildjxj-Nouvwd-Lahuyo Hx Past Med/Social Hx: Reviewed Nursing Past Med/Soc Hx Patient Social History Alcohol Use: Past History Number of Drinks Today: AA Alcohol Beverage of Choice: Beer Recreational Drug Use: No Smoking Status: Former Smoker Former Smoker, Quit: Mar 15, 2004 Type Used: Cigarettes 2nd Hand Smoke Exposure: No Recent Foreign Travel: No Contact w/other who traveled: No Recent Hopitalizations: No Recent Infectious Disease Expo: No Immunizations Up To Date Tetanus Booster (TDap): More than 5yrs Pediatric: No Date of Pneumonia Vaccine: May 09, 2019 Date of Influenza Vaccine: May 16, 2019 Seasonal Allergies Seasonal Allergies: No Past Medical History Surgeries: Joint Replacement, Neurological, Orthopedic Respiratory: COPD Cardiac: Hypertension Neurological: Dementia, Traumatic Brain Injury Reproductive: No Sexually Transmitted Disease: No HIV/AIDS: No Gastrointestinal: Gastroesophageal Reflux, Obstructive Bowel, Chronic Constipation Musculoskeletal: Arthritis Endocrine: Diabetes, Non-Insulin dep Loss of Vision: Bilateral Hearing Impairment: Hard of Hearing Psychosocial: Sleep Difficulties, Depression History of Blood Disorders: No Adverse Reaction to Blood Stein: No Family History Arthritis 19 FATHER G8 SISTER Cataracts 19 FATHER Dementia 19 FATHER Hypertension 19 FATHER 19 MOTHER G8 BROTHER Myocardial infarction G8 BROTHER Thyroid disease 19 FATHER Heart Disease, Hypertension Review of Systems Constitutional: no symptoms reported EENTM: no symptoms reported Respiratory: no symptoms reported Cardiovascular: no symptoms reported Gastrointestinal: constipation, nausea, vomiting Genitourinary: no symptoms reported Musculoskeletal: no symptoms reported Skin: no symptoms reported Psychiatric/Neurological: No Symptoms Reported Physical Exam Physical Exam Vital Signs Vital Signs - First Documented 01/12/20 01/12/20 20:51 23:10 Temp 36.4 Pulse 89 Resp 17 B/P (MAP) 115/93 (100) Pulse Ox 98 O2 Delivery Room Air Capillary Refill : Less Than 3 Seconds Height, Weight, BMI Height: 5'11.00" Weight: 240lbs. oz. 108.937780cb; 32.88 BMI Method:Stated General Appearance: No Apparent Distress, Chronically ill, Obese HEENT: PERRL/EOMI, Pharynx Normal Neck: Normal Inspection, Supple Respiratory: Lungs Clear, Normal Breath Sounds, No Respiratory Distress Cardiovascular: Regular Rate, Rhythm, No Edema, No Murmur Gastrointestinal: Non Tender, Soft, Abnormal Bowel Sounds (Hypoactive), Distended Extremity: Normal Inspection, Non Tender, No Pedal Edema Neurologic/Psychiatric: Alert, No Motor/Sensory Deficits, Normal Mood/Affect; No Disoriented Skin: Normal Color, Warm/Dry Results Results/Procedures Labs Laboratory Tests 01/12/20 20:55 01/13/20 05:25 Patient resulted labs reviewed. Imaging: Reviewed Imaging Report Assessment/Plan Admission Diagnosis Ileus Admission Status: Inpatient Order (span 2 midnights) Reason for Inpatient Admission: Ileus requiring further evaluation and treatment Assessment and Plan Ileus Abdominal distention Nausea and vomiting CT abdomen consistent with ileus, concern for fecal impaction Surgery consulted, appreciate assistance Nothing by mouth IV fluids running Antiemetics ordered Refused NG tube placement Dementia Clinically significant, in no acute management needs Depression Continue sertraline DVT prophylaxis: Lovenox Diagnosis/Problems Diagnosis/Problems (1) Ileus Status: Acute Clinical Quality Measures DVT/VTE Risk/Contraindication: Risk Factor Score Per Nursin RFS Level Per Nursing on Admit: 4+=Very High MYKEL RIVERA MD Jan 13, 2020 13:26
[2020-01-13] MEDS ORDERED: NS IV 500 ML 500 ML IV ONE (13:45)
[2020-01-13] MEDS ORDERED: ENOXAPARIN 40 MG/0.4 ML (LOVENOX) SYR SC SCH (14:00)
--- NOTE | 2020-01-13 14:15 | NUR ---
Pastoral care visit.
[2020-01-13] MEDS: POTASSIUM CL 10MEQ/50ML IVPB 50 ML IV SCH ×2 (14:26→15:54)
--- NOTE | 2020-01-13 17:53 | Progress Note - Surgery ---
Subjective Time Seen by a Provider: 17:09 Subjective/Events-last exam Pt seen and examined, states he is hungry but really wants something to drink. He has been having BM's. Pt does not ambulate. Review of Systems Pulmonary: No Dyspnea, No Cough Cardiovascular: No: Chest Pain, Palpitations Gastrointestinal: No: Nausea, Vomiting, Abdominal Pain Objective Exam Vital Signs Date Time Temp Pulse Resp B/P (MAP) Pulse Ox O2 Delivery O2 Flow Rate FiO2 01/13/20 16:00 37.0 76 20 101/61 (74) 95 Room Air 01/13/20 11:00 37.0 72 20 111/62 (78) 93 Room Air 01/13/20 10:58 94 Room Air 01/13/20 08:01 94 Room Air 01/13/20 08:00 37.0 81 20 113/70 (84) 94 Room Air 01/13/20 04:00 36.7 82 22 104/71 (82) 100 Room Air 01/13/20 00:26 37.3 96 22 130/78 (95) 95 Room Air 01/12/20 23:45 37.3 96 22 130/78 95 Room Air 01/12/20 23:10 82 16 120/71 98 Room Air 01/12/20 20:51 36.4 89 17 115/93 (100) Room Air I & O 01/13/20 06:59 Intake Total 0 ml Balance 0 ml Capillary Refill : Less Than 3 Seconds General Appearance: No Apparent Distress, Chronically ill, Obese HEENT: PERRL/EOMI Respiratory: Lungs Clear, Normal Breath Sounds, No Respiratory Distress Cardiovascular: Regular Rate, Rhythm, No Murmur Gastrointestinal: no organomegaly, abnormal bowel sounds (faint), distended, tenderness (very minimal with deep palpation, better than yesterday) Neurologic/Psychiatric: No Disoriented Results Lab Laboratory Tests 01/12/20 20:55: White Blood Count 15.2H, Red Blood Count 4.51, Hemoglobin 13.0L, Hematocrit 40, Mean Corpuscular Volume 89, Mean Corpuscular Hemoglobin 29, Mean Corpuscular Hemoglobin Concent 32, Red Cell Distribution Width 18.4H, Platelet Count 216, Mean Platelet Volume 13.6H, Neutrophils (%) (Auto) 59, Lymphocytes (%) (Auto) 25, Monocytes (%) (Auto) 15H, Eosinophils (%) (Auto) 0, Basophils (%) (Auto) 0, Neutrophils # (Auto) 9.1H, Lymphocytes # (Auto) 3.8, Monocytes # (Auto) 2.3H, Eosinophils # (Auto) 0.0, Basophils # (Auto) 0.1, Neutrophils % (Manual) 57, Lymphocytes % (Manual) 27, Monocytes % (Manual) 14, Eosinophils % (Manual) 1, Myelocytes % 1, Blood Morphology Comment NORMAL, Prothrombin Time 14.8H, INR Comment 1.1, Sodium Level 143, Potassium Level 3.5L, Chloride Level 109H, Carbon Dioxide Level 23, Anion Gap 11, Blood Urea Nitrogen 28H, Creatinine 1.31H, Estim at Glomerular Filtration Rate 54, BUN/Creatinine Ratio 21, Glucose Level 97, Calcium Level 9.1, Corrected Calcium 9.0, Total Bilirubin 0.4, Aspartate Amino Transf (AST/SGOT) 14, Alanine Aminotransferase (ALT/SGPT) 8, Alkaline Phosphatase 89, Total Protein 8.1, Albumin 4.1, Lipase 21 01/13/20 05:25: White Blood Count 14.0H, Red Blood Count 4.26L, Hemoglobin 12.2L, Hematocrit 38L , Mean Corpuscular Volume 89, Mean Corpuscular Hemoglobin 29, Mean Corpuscular Hemoglobin Concent 32, Red Cell Distribution Width 18.3H, Platelet Count 172, Mean Platelet Volume 13.6H, Neutrophils (%) (Auto) 61, Lymphocytes (%) (Auto) 24, Monocytes (%) (Auto) 15H, Eosinophils (%) (Auto) 0, Basophils (%) (Auto) 0, Neutrophils # (Auto) 8.5H, Lymphocytes # (Auto) 3.3, Monocytes # (Auto) 2.1H, Eosinophils # (Auto) 0.0, Basophils # (Auto) 0.1, Sodium Level 142, Potassium Level 3.5L, Chloride Level 112H, Carbon Dioxide Level 21, Anion Gap 9, Blood Urea Nitrogen 26H, Creatinine 1.18, Estimat Glomerular Filtration Rate > 60, BUN/Creatinine Ratio 22, Glucose Level 105, Calcium Level 8.6, Corrected Calcium 8.8, Total Bilirubin 0.4, Aspartate Amino Transf (AST/SGOT) 15, Alanine Aminotransferase (ALT/SGPT) 8, Alkaline Phosphatase 82, Total Protein 7.3, Albumin 3.7 Assessment/Plan Assessment/Plan Assessment/Plan Abdominal Distention - slightly improved Large bowel Ileus Dementia Nausea and Vomiting Pt's large bowel ileus appears improved; he is having BM's but colon is still pretty distended. Will try liquid diet. I did tell pt and family member in room that his colon may not improve and could eventually require subtotal colectomy. Clinical Quality Measures DVT/VTE Risk/Contraindication: Risk Factor Score Per Nursin RFS Level Per Nursing on Admit: 4+=Very High BUCK BENITEZ DO Jan 13, 2020 17:53
[2020-01-14] VITALS: BP 128/71
[2020-01-14 04:00] VITALS: BP 138/74
[2020-01-14] MEDS: NS W/KCL 20 MEQ/L 1,000 ML IV SCH (05:50)
[2020-01-14] MEDS ORDERED: KCL 20 MEQ TAB (K-DUR) PO SCH (06:00)
[2020-01-14] MEDS ORDERED: POTASSIUM CL 10MEQ/50ML IVPB 50 ML IV SCH (06:00)
[2020-01-14] MEDS ORDERED: MAGNESIUM 1 GM/100 ML IVPB 100 ML IV SCH (06:00)
[2020-01-14 06:19] LABS: CHLORIDE 115 MMOL/L (98-107); POTASSIUM 3.8 MMOL/L (3.6-5.0); SODIUM 142 MMOL/L (135-145)
[2020-01-14 06:20] LABS: CALCIUM 8.2 MG/DL (8.5-10.1)
[2020-01-14 06:21] LABS: GLUCOSE 82 MG/DL (70-105)
[2020-01-14 06:22] LABS: CARBON DIOXIDE 18 MMOL/L (21-32)
[2020-01-14 06:25] LABS: CREATININE SERUM 1.02 MG/DL (0.60-1.30); GFR ESTIMATED > 60
[2020-01-14 06:26] LABS: BUN/CREATININE RATIO 21
[2020-01-14 06:27] LABS: MAGNESIUM 1.8 MG/DL (1.6-2.4)
[2020-01-14] MEDS: CATHETER FLUSH 10 ML SYR IV SCH (06:30)
[2020-01-14 07:33] VITALS: BP 114/70
[2020-01-14] MEDS ORDERED: ACETAMINOPHEN 325 MG TABLET PO PRN (08:15)
[2020-01-14] MEDS ORDERED: MELATONIN 3 MG TABLET PO PRN (08:15)
[2020-01-14] MEDS ORDERED: ANTACID SUSP 30 ML UDC (MYLANTA) PO PRN (08:15)
[2020-01-14] MEDS ORDERED: LORazepam 0.5 MG (ATIVAN) TABLET PO PRN (08:15)
[2020-01-14] MEDS ORDERED: ONDANSETRON 4 MG (ZOFRAN) ORAL DISSOLVE TAB PO PRN (08:15)
[2020-01-14] MEDS ORDERED: ONDANSETRON 4 MG/2 ML (SDV) Z0FRAN IV PRN (08:15)
[2020-01-14] MEDS ORDERED: SERTRALINE 50 MG (ZOLOFT) TABLET PO SCH (09:00)
[2020-01-14] MEDS ORDERED: LACT20SO2 PO (11:18)
[2020-01-14] MEDS ORDERED: BISA10SU8 RC (11:18)
[2020-01-14] MEDS ORDERED: DOCU-143 PO (11:18)
[2020-01-14] MEDS ORDERED: POLY17PO6 PO (11:18)
--- NOTE | 2020-01-14 11:30 | Discharge Summary ---
Discharge Summary Reconcile Patient Problems Problems Reviewed?: Yes Hospital Course Hospital Course Date of Admission: Jan 12, 2020 at 21:50 Admission Diagnosis: Ileus Family Physician/Provider: Fran Marin Aprn Date of Discharge: 01/14/20 Discharge Diagnosis: Ileus Hospital Course: Eliel Pickering is a 74-year-old male who presented with abdominal distention and was admitted with ileus. He underwent an abdominal CT which was consistent with ileus. Gen. surgery was consulted and assisted with his care. He was treated conservatively and his symptoms improved. He began passing flatus and having bowel movements. He was not having any nausea or vomiting. He was started on a bowel regimen. He should follow-up with his primary care physician. Labs and Pending Lab Test: Laboratory Tests 01/14/20 05:10: Sodium Level 142, Potassium Level 3.8, Chloride Level 115H, Carbon Dioxide Level 18L, Anion Gap 9, Blood Urea Nitrogen 21H, Creatinine 1.02, Estimat Glomerular Filtration Rate > 60, BUN/Creatinine Ratio 21, Glucose Level 82, Calcium Level 8.2L, Magnesium Level 1.8 Home Meds Active Bisacodyl 10 Mg Supp.rect 10 Mg RC DAILY PRN 30 Days Lactulose 20 Gm/30 Ml Solution 20 Gm PO BID PRN 30 Days Miralax (Polyethylene Glycol 3350) 17 Gm Powd.pack 17 Gm PO BID 90 Days HOLD FOR DIARRHEA Colace (Docusate Sodium) 100 Mg Capsule 100 Mg PO BID 90 Days Reported Zofran (Ondansetron HCl) 4 Mg Tab 4 Mg PO Q4H PRN Sertraline HCl 50 Mg Tablet 50 Mg PO DAILY Phos-Nak Packet (Phosphate) 1 Ea Packet 1 Ea PO BID Lactobacillus Tablet (L. Acidophilus/L.bulgaricus) 1 Each Tablet 1 Each PO BID Chlorhexidine Gluconate 473 Ml Mouthwash 15 Ml PO BID SWISH AND SPIT Calmoseptine Ointment (Menthol/Lanolin/Calamine/Znox) 71 Gm Oint 1 Applic TP BID APPLY TO THE GROIN FOR REDNESS/GAULDING Polyvinyl Alcohol 15 Ml Drops 2 Drops OU Q4H PRN Tylenol Extra Strength (Acetaminophen) 500 Mg Tablet 500 Mg PO Q6H PRN Instructions to Patient/Family Assessment/Instructions Take medications as prescribed. Follow up with your primary care provider. Return with worsening nausea, vomiting, abdominal pain. Follow Up Appt.: next [facility] rounds Skilled NF Admit to: [facility] Certification (SNF) I certify that SNF services are required to be given on an inpatient basis because of the above named patient's need for group home care on a continuing basis for the conditions(s) for which he/she was receiving inpatient hospital services prior to his/her transfer to the SNF. Senior Living Facility Order: Nursing Services, [employer] For Medical Terminology-Evaluate & Treat, Physical Therapy-Evaluate & Treat Oxygen Delivery Method: Room Air Discharge Diet: No Restrictions Daily Activity as Tolerated: Yes Resuscitation Status: Do Not Resuscitate Mykel Rivera Jan 14, 2020 11:21 Discharge Physical Exam General: Alert, Oriented X3, Cooperative, No Acute Distress HEENT: Atraumatic, EOMI, Mucous Memb Moist/[place] Lungs: Clear to Auscultation, Normal Air Movement Heart: Regular Rate, Normal S1, Normal S2, No Murmurs Abdomen: Normal Bowel Sounds, Soft, No Tenderness, Other Extremities: No Edema, No Tenderness/Swelling Skin: No Rashes, No Significant Lesion Neuro: Normal Speech, Normal Tone Psych/Mental Status: Mental Status NL, Mood NL MYKEL RIVERA MD Jan 14, 2020 11:27
[2020-01-14 11:37] VITALS: BP 96/62
--- NOTE | 2020-01-14 12:31 | NUR ---
MALA CALLED TO [facility]ER [place] AT [facility]
--- NOTE | 2020-01-14 12:49 | Progress Note - Surgery ---
Subjective Time Seen by a Provider: 12:41 Subjective/Events-last exam Pt seen and examined, denies abdominal pain. He is eating and having BM's. Review of Systems Pulmonary: No Dyspnea, No Cough Cardiovascular: No: Chest Pain, Palpitations Gastrointestinal: No: Nausea, Vomiting, Abdominal Pain Objective Exam Vital Signs Date Time Temp Pulse Resp B/P (MAP) Pulse Ox O2 Delivery O2 Flow Rate FiO2 01/14/20 11:37 36.6 67 20 96/62 (73) 98 Room Air 01/14/20 11:30 Room Air 01/14/20 08:00 96 Room Air 01/14/20 07:33 36.8 71 20 114/70 (85) 99 Room Air 01/14/20 04:00 36.3 71 21 138/74 (95) 97 Room Air 01/14/20 00:00 36.3 90 18 128/71 (90) 90 Room Air 01/13/20 20:00 Room Air 01/13/20 19:37 36.6 83 18 112/62 (79) 95 Room Air 01/13/20 16:00 37.0 76 20 101/61 (74) 95 Room Air I & O 01/14/20 07:00 Intake Total 2300 ml Balance 2300 ml Capillary Refill : Less Than 3 Seconds General Appearance: No Apparent Distress, Chronically ill, Obese HEENT: PERRL/EOMI Respiratory: Lungs Clear, Normal Breath Sounds, No Respiratory Distress Cardiovascular: Regular Rate, Rhythm, No Murmur Gastrointestinal: normal bowel sounds, soft, no organomegaly Neurologic/Psychiatric: No Disoriented Results Lab Laboratory Tests 01/14/20 05:10: Sodium Level 142, Potassium Level 3.8, Chloride Level 115H, Carbon Dioxide Level 18L, Anion Gap 9, Blood Urea Nitrogen 21H, Creatinine 1.02, Estimat Glomerular Filtration Rate > 60, BUN/Creatinine Ratio 21, Glucose Level 82, Calcium Level 8.2L, Magnesium Level 1.8 Assessment/Plan Assessment/Plan Assessment/Plan Abdominal Distention - improved Large bowel Ileus Dementia Nausea and Vomiting Pt is tolerating diet. Ok to go back to skilled care from surgery standpoint. Clinical Quality Measures DVT/VTE Risk/Contraindication: Risk Factor Score Per Nursin RFS Level Per Nursing on Admit: 4+=Very High BUCK BENITEZ DO Jan 14, 2020 12:49
[2020-01-14 13:45] VITALS: BP 148/88
--- NOTE | 2020-01-14 13:45 | NUR ---
FER FROM [facility] demonstrates understanding of discharge instructions and accurately returns instructions upon questioning. Copy of Post-Discharge Instructions given to PT. AURORA MARTINS is able to manage continuing needs after discharge WITH ASSISTANCE OF [facility]. Patients belongings returned to PT. Patient discharged from [facility]- on 01/14/20 at 1345. AURORA MARTINS left floor via W/C AND [facility], accompanied by [facility] AND [facility] VAN.
--- NOTE | 2020-01-14 14:02 | NUR ---
CM/SS visited with the patient for discharge planning. Plan: The patient will return to [facility] skilled. The facility will pick up operator patient at 14:00 today 01/13. CM/SS contacted [facility] and [facility] to inform them of patients discharge. They verbalized understanding. CM/SS visited with the patient and his daughter about discharge as well. They did not have any additional questions or concerns at this time. CM/SS faxed finalized discharged to facility. No further needs.
== END 2020-01-14 13:45 | DRG 390 ==
LOC: EDUNIT# 20:49 → ER 20:50 → 4TH 21:50
PROVIDERS: ADMIT Internal Medicine; ATTEND Internal Medicine
DX: K56.7 Ileus, unspecified (principal); F03.90 Unspecified dementia, unspecified severity, without behavioral disturbance, psychotic disturbance, mood disturbance, and anxiety; F32.9 Major depressive disorder, single episode, unspecified; J44.9 Chronic obstructive pulmonary disease, unspecified; I11.0 Hypertensive heart disease with heart failure; I50.9 Heart failure, unspecified; Z66 Do not resuscitate; K21.9 Gastro-esophageal reflux disease without esophagitis; K59.09 Other constipation; E11.9 Type 2 diabetes mellitus without complications; Z87.820 Personal history of traumatic brain injury; Z96.60 Presence of unspecified orthopedic joint implant; Z87.891 Personal history of nicotine dependence
CPT/HCPCS: 36415; 71045; 74176; 80048; 80053; 83690; 83735; 85007; 85025; 85027; 85610

== ENCOUNTER 2020-07-05 19:04 | Inpatient (IN) | payer MEDICARE, MEDICAID ==
[~2020-07-05] VITALS: Ht 175 cm; Wt 119.7 kg
[~2020-07-05 19:04] MED LIST changes: +ACET-2267 PO; +BISA10SU8 RC; +L. A1TAB10 PO; +MENT71OI TP; +NFCHLORHGL PO; +ONDN4T PO; +POLY15DR35 OU; +SERT50TA9 PO; +[UNRECOGNIZED DRUG - OTHER] PO
--- NOTE | 2020-07-05 19:07 | ED General ---
General Stated Complaint: COVID 19 Source of Information: Patient Exam Limitations: No Limitations History of Present Illness Date Seen by Provider: Jul 05, 2020 Time Seen by Provider: 19:07 Initial Comments To ER for EMS from [facility] with reports of shortness of breath. He tested positive for Covid yesterday. Oxygen saturation 89-90% on room air. Timing/Duration: 1-2 Days Associated Systoms: Denies Symptoms Allergies and Home Medications Allergies Coded Allergies: No Known Drug Allergies (Unverified , 10/26/18) Home Medications Acetaminophen 500 Mg Tablet, 500 MG PO Q6H PRN for PAIN-MILD (1-4) OR TEMPATURE, (Reported) Bisacodyl 10 Mg Supp.rect, 10 MG RC DAILY PRN for CONSTIPATION-2ND LINE Prescribed by: MYKEL RIVERA on 01/14/20 1118 Chlorhexidine Gluconate 473 Ml Mouthwash, 15 ML PO BID, (Reported) SWISH AND SPIT Docusate Sodium 100 Mg Capsule, 100 MG PO BID Prescribed by: MYKEL RIVERA on 01/14/20 1118 L. Acidophilus/L.bulgaricus 1 Each Tablet, 1 EACH PO BID, (Reported) Lactulose 20 Gm/30 Ml Solution, 20 GM PO BID PRN for CONSTIPATION-1ST LINE Prescribed by: MYKEL RIVERA on 01/14/20 1118 Menthol/Lanolin/Calamine/Znox 71 Gm Oint, 1 APPLIC TP BID, (Reported) APPLY TO THE GROIN FOR REDNESS/GAULDING Ondansetron HCl 4 Mg Tab, 4 MG PO Q4H PRN for NAUSEA/VOMITING-1ST LINE, (Reported) Phosphate 1 Ea Packet, 1 EA PO BID, (Reported) Polyethylene Glycol 3350 17 Gm Powd.pack, 17 GM PO BID HOLD FOR DIARRHEA Prescribed by: MYKEL RIVERA on 01/14/20 1118 Polyvinyl Alcohol 15 Ml Drops, 2 DROPS OU Q4H PRN for DRY EYES, (Reported) Sertraline HCl 50 Mg Tablet, 50 MG PO DAILY, (Reported) Patient Home Medication List Home Medication List Reviewed: Yes Review of Systems Review of Systems Constitutional: see HPI EENTM: see HPI Respiratory: see HPI, dyspnea on exertion Genitourinary: no symptoms reported Musculoskeletal: no symptoms reported Skin: no symptoms reported Psychiatric/Neurological: No Symptoms Reported Hematologic/Lymphatic: No Symptoms Reported Past Kfyknlw-Bowxwy-Nyjsgf Hx Patient Social History Alcohol Beverage of Choice: Beer Type Used: Cigarettes Former Smoker, Quit: Mar 15, 2004 2nd Hand Smoke Exposure: No Recent Hopitalizations: No Immunizations Up To Date Tetanus Booster (TDap): More than 5yrs PED Vaccines UTD: No Date of Pneumonia Vaccine: May 09, 2019 Date of Influenza Vaccine: May 16, 2019 Seasonal Allergies Seasonal Allergies: No Past Medical History Surgeries: Yes (HEAD INJURY - BLOOD CLOT IN BRAIN REMOVED, HERNIA REPAIR) Joint Replacement, Neurological, Orthopedic Respiratory: No 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, CONGESTIVE HEART FAILURE) Hypertension Neurological: Yes (BRAIN INJURY IN 1978, HAD SEIZURES FOR A FEW WEEKS AFTER, NONE SINCE) Dementia, Traumatic Brain Injury Reproductive Disorders: No Sexually Transmitted Disease: No HIV/AIDS: No Genitourinary: No Gastrointestinal: Yes (HX OF BOWEL OBSTRUCTION IN 2013) Gastroesophageal Reflux, Obstructive Bowel, Chronic Constipation Musculoskeletal: Yes Arthritis Endocrine: Yes Diabetes, Non-Insulin dep HEENT: Yes (READING GLASSES) Loss of Vision: Bilateral Hearing Impairment: Hard of Hearing Cancer: No Psychosocial: Yes Sleep Difficulties, Depression Integumentary: No Blood Disorders: No Adverse Reaction/Blood Tranf: No Family Medical History Arthritis 19 FATHER G8 SISTER Cataracts 19 FATHER Dementia 19 FATHER Hypertension 19 FATHER 19 MOTHER G8 BROTHER Myocardial infarction G8 BROTHER Thyroid disease 19 FATHER Heart Disease, Hypertension Physical Exam Vital Signs Vital Signs - First Documented 07/05/20 19:29 Temp 38.0 Pulse 89 Resp 18 B/P (MAP) 129/78 (95) Pulse Ox 99 O2 Delivery Room Air Capillary Refill : Height, Weight, BMI Height: 5'11.00" Weight: 240lbs. oz. 108.099316zh; 32.88 BMI Method:Stated General Appearance: No Apparent Distress, WD/WN, Other (alert and oriented, rather contrary to most aspects of care.) Eyes: Bilateral Eye Normal Inspection, Bilateral Eye PERRL, Bilateral Eye EOMI Neck: Full Range of Motion, Normal Inspection Respiratory: Normal Breath Sounds, No Accessory Muscle Use Gastrointestinal: Normal Bowel Sounds, Non Tender, Soft Extremity: Normal Capillary Refill, Normal Inspection Skin: Normal Color, Warm/Dry Focused Exam Lactate Level 07/05/20 19:20: Lactic Acid Level 1.30 Lactic Acid Level Laboratory Tests Test 07/05/20 19:20 Lactic Acid Level 1.30 MMOL/L (0.50-2.00) Procedures/Interventions Date of ETT Placement: Mar 16, 2018 Time of ETT Placement: 1200 Progress/Results/Core Measures Suspected Sepsis SIRS Temperature: Pulse: Respiratory Rate: Laboratory Tests 07/05/20 19:20: White Blood Count 8.1 Blood Pressure / Mean: 07/05/20 19:20: Lactic Acid Level 1.30 Laboratory Tests 07/05/20 19:20: Creatinine 1.09, Platelet Count 111L, Total Bilirubin 0.4 Results/Orders Lab Results Laboratory Tests Test 07/05/20 19:20 Range/Units White Blood Count 8.1 4.3-11.0 10^3/uL Red Blood Count 4.07 L 4.30-5.52 10^6/uL Hemoglobin 11.3 L 13.3-17.7 g/dL Hematocrit 36 L 40-54 % Mean Corpuscular Volume 89 80-99 fL Mean Corpuscular Hemoglobin 28 25-34 pg Mean Corpuscular Hemoglobin Concent 31 L 32-36 g/dL Red Cell Distribution Width 18.3 H 10.0-14.5 % Platelet Count 111 L 130-400 10^3/uL Mean Platelet Volume 9.0-12.2 fL Immature Granulocyte % (Auto) 1 % Neutrophils (%) (Auto) 60 42-75 % Lymphocytes (%) (Auto) 23 12-44 % Monocytes (%) (Auto) 15 H 0-12 % Eosinophils (%) (Auto) 1 0-10 % Basophils (%) (Auto) 1 0-10 % Neutrophils # (Auto) 4.9 1.8-7.8 10^3/uL Lymphocytes # (Auto) 1.8 1.0-4.0 10^3/uL Monocytes # (Auto) 1.2 H 0.0-1.0 10^3/uL Eosinophils # (Auto) 0.1 0.0-0.3 10^3/uL Basophils # (Auto) 0.0 0.0-0.1 10^3/uL Immature Granulocyte # (Auto) 0.1 0.0-0.1 10^3/uL Sodium Level 138 135-145 MMOL/L Potassium Level 3.6 3.6-5.0 MMOL/L Chloride Level 106 98-107 MMOL/L Carbon Dioxide Level 21 21-32 MMOL/L Anion Gap 11 5-14 MMOL/L Blood Urea Nitrogen 24 H 7-18 MG/DL Creatinine 1.09 0.60-1.30 MG/DL Estimat Glomerular Filtration Rate > 60 BUN/Creatinine Ratio 22 Glucose Level 93 70-105 MG/DL Lactic Acid Level 1.30 0.50-2.00 MMOL/L Calcium Level 8.2 L 8.5-10.1 MG/DL Corrected Calcium 8.6 8.5-10.1 MG/DL Total Bilirubin 0.4 0.1-1.0 MG/DL Aspartate Amino Transf (AST/SGOT) 25 5-34 U/L Alanine Aminotransferase (ALT/SGPT) 12 0-55 U/L Alkaline Phosphatase 77 40-136 U/L Total Protein 7.6 6.4-8.2 GM/DL Albumin 3.5 3.2-4.5 GM/DL Procalcitonin 0.13 H <0.10 NG/ML My Orders Orders - LEONARDO DEWITT APRN Cbc With Automated Diff (07/05/20 19:05) Comprehensive Metabolic Panel (07/05/20 19:05) Ua Culture If Indicated (07/05/20 19:05) Blood Culture (07/05/20 19:05) Lactic Acid Analyzer (07/05/20 19:05) Lorazepam Injection (Ativan Injection) (07/05/20 19:15) Procalcitonin (Pct) (07/05/20 19:05) Chest 1 View, Ap/Pa Only (07/05/20 19:05) Lorazepam Injection (Ativan Injection) (07/05/20 20:30) Haloperidol Injection (Haldol Injectio (07/05/20 20:30) Acetaminophen Tablet/Caplet (Tylenol T (07/05/20 20:45) Acetaminophen Tablet (Tylenol Tablet) (07/05/20 20:44) Medications Given in ED Current Medications Medications Dose Ordered Sig/Caron Route Start Time Stop Time Status Last Admin Dose Admin Lorazepam 0.5 mg ONCE PRN IVP 07/05/20 19:15 07/05/20 19:10 0.5 MG Lorazepam 0.5 mg ONCE PRN IVP 07/05/20 20:30 07/05/20 20:23 0.5 MG Vital Signs/I&O 07/05/20 19:29 Temp 38.0 Pulse 89 Resp 18 B/P (MAP) 129/78 (95) Pulse Ox 99 O2 Delivery Room Air Capillary Refill : Diagnostic Imaging Diagonstic Imaging: Xray Comments NAME: AURORA MARTINS [facility] REC#: [id number] PT STATUS: REG ER : 1945 PHYSICIAN: LEONARDO DEWITT APRN ADMIT DATE: 07/05/20/ER Signed Date of Exam:07/05/20 CHEST 1 VIEW, AP/PA ONLY Clinical indication: Patient with shortness of breath and diagnosed with COVID. Exam: Portable chest x-ray upright view. Comparisons: Chest x-ray dated 01/12/2020. Findings: There is slight progression of patchy consolidation involving the right midlung field and right upper lobe region. There is slight increased patchy airspace infiltrates in the periphery of the left upper lobe and left midlung field region and left perihilar region. There is no pleural effusion or pneumothorax. Pulmonary vasculature and cardiac silhouettes within normal limits. Air distended loops of colon are again noted with elevation of the hemidiaphragms. IMPRESSION: There is slight progression of bilateral lung infiltrates. Dictated by: Dictated on workstation # [id number] Dict: 07/05/201955 Trans: 07/05/202020 [facility] [id number] Interpreted by: LEORA MENENDEZ MD Electronically signed by: LEORA MENENDEZ MD 07/05/202020 Departure Communication (Admissions) 2029-patient has been yelling and screaming at staff, cursing. This is despite 0.5 mg of IV lorazepam earlier. I gave an additional 0.5 mg a few minutes ago and he continues to yell scream and curse so I have ordered 2.5 mg of intramuscular haloperidol. 2047-Spoke with Dr Hopper, will admit supplemental oxygen. Will defer appropriateness of decadron/remdesivir/cvp to hospitalist tomorrow. HE is DNR status. Impression Primary Impression: COVID-19 Additional Impression: Hypoxia Disposition: ADMITTED INPATIENT Condition: Stable Admissions Decision to Admit Reason: Admit from ER (General) Decision to Admit/Date: Jul 05, 2020 Time/Decision to Admit Time: 19:17 Departure-Patient Inst. Referrals: JESÚS CALABRESE MD (PCP) Primary Care Physician ZHANG PAULINO APRN (Family) Primary Care Physician LEONARDO DEWITT APRN Jul 05, 2020 19:07
[2020-07-05] MEDS ORDERED: LORazepam INJ 2 MG/ML (ATIVAN) VIAL IVP PRN ×2 (19:15→20:30)
[2020-07-05 19:33] LABS: HEMOGLOBIN 11.3 g/dL (13.3-17.7)
[2020-07-05 19:34] LABS: BASOPHILS % (AUTO) 1 % (0-10); EOSINOPHILS # (AUTO) 0.1 10^3/uL (0.0-0.3); EOSINOPHILS % (AUTO) 1 % (0-10); HEMATOCRIT 36 % (40-54); LYMPHOCYTES # (AUTO) 1.8 10^3/uL (1.0-4.0); LYMPHOCYTES % (AUTO) 23 % (12-44); MEAN CORPUSCULAR HEMOGLOBIN 28 pg (25-34); MEAN CORPUSCULAR HGB CONC 31 g/dL (32-36); MEAN CORPUSCULAR VOLUME 89 fL (80-99); MONOCYTES # (AUTO) 1.2 10^3/uL (0.0-1.0); MONOCYTES % (AUTO) 15 % (0-12); NEUTROPHILS # (AUTO) 4.9 10^3/uL (1.8-7.8); NEUTROPHILS % (AUTO) 60 % (42-75); PLATELET COUNT 111 10^3/uL (130-400); WHITE BLOOD COUNT 8.1 10^3/uL (4.3-11.0)
[2020-07-05 19:48] LABS: ALANINE AMINOTRANSFERASE 12 U/L (0-55); ALBUMIN 3.5 GM/DL (3.2-4.5); ALKALINE PHOSPHATASE 77 U/L (40-136); BILIRUBIN,TOTAL 0.4 MG/DL (0.1-1.0); BUN/CREATININE RATIO 22; CALCIUM 8.2 MG/DL (8.5-10.1); CARBON DIOXIDE 21 MMOL/L (21-32); CHLORIDE 106 MMOL/L (98-107); CREATININE SERUM 1.09 MG/DL (0.60-1.30); GFR ESTIMATED > 60; GLUCOSE 93 MG/DL (70-105); POTASSIUM 3.6 MMOL/L (3.6-5.0); SODIUM 138 MMOL/L (135-145); TOTAL PROTEIN 7.6 GM/DL (6.4-8.2)
--- NOTE | 2020-07-05 20:10 | Diagnostic Imaging Report ---
Clinical indication: Patient with shortness of breath and diagnosed with COVID. Exam: Portable chest x-ray upright view. Comparisons: Chest x-ray dated 01/12/2020. Findings: There is slight progression of patchy consolidation involving the right midlung field and right upper lobe region. There is slight increased patchy airspace infiltrates in the periphery of the left upper lobe and left midlung field region and left perihilar region. There is no pleural effusion or pneumothorax. Pulmonary vasculature and cardiac silhouettes within normal limits. Air distended loops of colon are again noted with elevation of the hemidiaphragms. IMPRESSION: There is slight progression of bilateral lung infiltrates. Dictated by: Dictated on workstation # [id number]
--- NOTE | 2020-07-05 20:23 | NUR ---
Unable to scan medication d/t scanner on COW not working.
[2020-07-05] MEDS ORDERED: HALOPERIDOL 5 MG/ML (HALDOL) VIAL IM ONE ×2 (20:30→21:15)
[2020-07-05] MEDS ORDERED: ACETAMINOPHEN 500 MG TAB (TYLENOL) ONE (20:44)
[2020-07-05] MEDS ORDERED: ACETAMINOPHEN 325 MG TABLET PO ONE (20:45)
[2020-07-05 22:10] VITALS: BP 100/56
[2020-07-05] MEDS ORDERED: CATHETER FLUSH 10 ML SYR IV PRN (22:45)
[2020-07-05] MEDS ORDERED: RT-ALBUTEROL INHALER HFA (VENTOLIN HFA) 18 GM IH PRN (22:45)
[2020-07-05 23:05] VITALS: BP 128/67
--- NOTE | 2020-07-05 23:05 | NUR ---
AURORA MARTINS admitted to room 424-1, with an admitting diagnosis of Shortness of air, on 07/05/20 from ED via CART, accompanied by STAFF.AURORA MARTINS introduced to surroundings, call light, bed controls, phone, TV, temperature control, lights, meal times, smoking policy, visitor policy, side rail policy, bathrooms and showers. Patient Rights given to patient in the handbook. AURORA MARTINS verbalizes understanding that [facility] is not responsible for the loss or damage to any personal effects or valuables that are kept in the patients posession during their hospitalization. The following Patient Care Plans were discussed with the : Discharge Planning, ,, and . AURORA MARTINS verbalizes understanding of Interdisciplinary Patient Education. Patient and/or family were informed about the Rapid Response Team and its purpose.
[2020-07-05] MEDS: dexAMETHasone 6 MG TAB (DECADRON) PO SCH (23:16)
[2020-07-05] MEDS: ENOXAPARIN 40 MG/0.4 ML (LOVENOX) SYR SC SCH (23:16)
[2020-07-06] VITALS (7 sets, daily range): BP systolic 100–129; BP diastolic 56–78
[2020-07-06 06:33] LABS: BASOPHILS % (AUTO) 0 % (0-10); EOSINOPHILS % (AUTO) 0 % (0-10); MEAN CORPUSCULAR HEMOGLOBIN 28 pg (25-34); MEAN CORPUSCULAR HGB CONC 31 g/dL (32-36)
[2020-07-06 06:35] LABS: HEMATOCRIT 30 % (40-54); HEMOGLOBIN 9.2 g/dL (13.3-17.7); LYMPHOCYTES # (AUTO) 0.8 10^3/uL (1.0-4.0); LYMPHOCYTES % (AUTO) 11 % (12-44); MEAN CORPUSCULAR VOLUME 91 fL (80-99); MONOCYTES # (AUTO) 0.6 10^3/uL (0.0-1.0); MONOCYTES % (AUTO) 8 % (0-12); NEUTROPHILS % (AUTO) 80 % (42-75); PLATELET COUNT 141 10^3/uL (130-400); WHITE BLOOD COUNT 7.5 10^3/uL (4.3-11.0)
[2020-07-06 06:59] LABS: ALBUMIN 3.7 GM/DL (3.2-4.5)
[2020-07-06 07:00] LABS: CHLORIDE 108 MMOL/L (98-107); POTASSIUM 3.6 MMOL/L (3.6-5.0); SODIUM 137 MMOL/L (135-145)
[2020-07-06 07:01] LABS: CALCIUM 8.3 MG/DL (8.5-10.1)
[2020-07-06 07:02] LABS: GLUCOSE 134 MG/DL (70-105); TOTAL PROTEIN 7.7 GM/DL (6.4-8.2)
[2020-07-06 07:03] LABS: CARBON DIOXIDE 21 MMOL/L (21-32)
[2020-07-06 07:04] LABS: BILIRUBIN,TOTAL 0.4 MG/DL (0.1-1.0)
[2020-07-06 07:05] LABS: ALKALINE PHOSPHATASE 77 U/L (40-136)
[2020-07-06 07:06] LABS: CREATININE SERUM 1.13 MG/DL (0.60-1.30); GFR ESTIMATED > 60
[2020-07-06 07:07] LABS: BUN/CREATININE RATIO 22
[2020-07-06 07:08] LABS: ALANINE AMINOTRANSFERASE 12 U/L (0-55)
[2020-07-06] MEDS ORDERED: LACT20SO2 PO (10:37)
[2020-07-06] MEDS ORDERED: DOCU100T2 PO (10:37)
[2020-07-06] MEDS ORDERED: CARB-254 OU (10:37)
[2020-07-06] MEDS ORDERED: LORA10TA7 PO (10:37)
--- NOTE | 2020-07-06 10:38 | NUR ---
MED REC WAS ENTERED USING THE MAR FROM [facility]
--- NOTE | 2020-07-06 12:24 | History & Physical-Hospitalist ---
History of Present Illness HPI/Chief Complaint Pt is a 74yoCM with a PMH of TBI, dementia, HTN, CHF, NIDDMII who presented to the ER due to shortness of breath and known COVID19 diagnosis. He is unable to provice me any history but ER note reveals that he was hypoxic on arrival. Overnight he required 10lpm oxi-mask but has been able to be titrated down to 2lpm NC this morining. He has no complaints to me. I attempted to call his daughter under the phone number listed in our chart but was unable to connect with her. Source: patient Date Seen 07/06/20 Time Seen by a Provider: 12:24 Attending Physician Galo Hopper MD PCP Mayito Rinaldi MD Referring Physician Date of Admission Jul 05, 2020 at 20:26 Home Medications & Allergies Home Medications Reviewed patient Home Medication Reconciliation performed by pharmacy medication reconciliations plating technician and/or nursing. Patients Allergies have been reviewed. Allergies Allergies Coded Allergies No Known Drug Allergies (Unverified10/26/18) Past Zrxzneg-Vnpxcb-Mpyvqh Hx Past Med/Social Hx: Reviewed Nursing Past Med/Soc Hx Patient Social History Alcohol Use: Rarely Uses Alcohol Beverage of Choice: Beer Recreational Drug Use: No Smoking Status: Former Smoker Former Smoker, Quit: Mar 15, 2004 Type Used: Cigarettes 2nd Hand Smoke Exposure: No Recent Foreign Travel: No Contact w/other who traveled: No Recent Hopitalizations: No Recent Infectious Disease Expo: No Immunizations Up To Date Tetanus Booster (TDap): More than 5yrs Pediatric: No Date of Pneumonia Vaccine: May 09, 2019 Date of Influenza Vaccine: May 16, 2020 Seasonal Allergies Seasonal Allergies: No Past Medical History Surgeries: Joint Replacement, Neurological, Orthopedic Respiratory: COPD Cardiac: Hypertension Neurological: Dementia, Traumatic Brain Injury Reproductive: No Sexually Transmitted Disease: No HIV/AIDS: No Gastrointestinal: Gastroesophageal Reflux, Obstructive Bowel, Chronic Co nstipation Musculoskeletal: Arthritis Endocrine: Diabetes, Non-Insulin dep Loss of Vision: Bilateral Hearing Impairment: Hard of Hearing Psychosocial: Sleep Difficulties, Depression History of Blood Disorders: No Adverse Reaction to Blood Stein: No Family History Arthritis 19 FATHER G8 SISTER Cataracts 19 FATHER Dementia 19 FATHER Hypertension 19 FATHER 19 MOTHER G8 BROTHER Myocardial infarction G8 BROTHER Thyroid disease 19 FATHER Heart Disease, Hypertension Review of Systems ROS-Unable to Obtain: dementia Constitutional: see HPI Physical Exam Physical Exam Vital Signs Vital Signs - First Documented 07/05/20 07/05/20 07/06/20 19:29 21:54 16:58 Temp 38.0 Pulse 89 Resp 18 B/P (MAP) 129/78 (95) Pulse Ox 99 O2 Delivery Room Air O2 Flow Rate 9.00 FiO2 32 Capillary Refill : Less Than 3 Seconds Height, Weight, BMI Height: 5'11.00" Weight: 240lbs. oz. [id number]; 36.89 BMI Method:Stated General Appearance: No Apparent Distress, Chronically ill, Obese HEENT: Moist Mucous Membranes Neck: Normal Inspection, Supple Respiratory: No Accessory Muscle Use, Decreased Breath Sounds, Other (on 2lpm) Cardiovascular: Regular Rate, Rhythm, No Murmur Gastrointestinal: Normal Bowel Sounds, Non Tender, Soft Extremity: No Calf Tenderness, Pedal Edema Neurologic/Psychiatric: Alert, Disoriented Skin: Normal Color, Warm/Dry Results Results/Procedures Labs Laboratory Tests 07/06/20 06:05 07/06/20 06:16 07/07/20 05:27 Patient resulted labs reviewed. Imaging: Reviewed Imaging Report Imaging [facility], [place] NAME: AURORA MARTINS [facility] REC#: [id number] PT STATUS: REG ER : 1945 PHYSICIAN: LEONARDO DEWITT APRN ADMIT DATE: 07/05/20/ER Signed Date of Exam:07/05/20 CHEST 1 VIEW, AP/PA ONLY Clinical indication: Patient with shortness of breath and diagnosed with COVID. Exam: Portable chest x-ray upright view. Comparisons: Chest x-ray dated 01/12/2020. Findings: There is slight progression of patchy consolidation involving the right midlung field and right upper lobe region. There is slight increased patchy airspace infiltrates in the periphery of the left upper lobe and left midlung field region and left perihilar region. There is no pleural effusion or pneumothorax. Pulmonary vasculature and cardiac silhouettes within normal limits. Air distended loops of colon are again noted with elevation of the hemidiaphragms. IMPRESSION: There is slight progression of bilateral lung infiltrates. Dictated by: Dictated on workstation # [id number] Dict: 07/05/201955 Trans: 07/05/202020 [facility] [id number] Interpreted by: LEORA MENENDEZ MD Electronically signed by: LEORA MENENDEZ MD 07/05/202020 Assessment/Plan Admission Diagnosis Acute hypoxic respiratory failure due to COVID19 Admission Status: Inpatient Order (span 2 midnights) Reason for Inpatient Admission: see below Assessment and Plan Acute hypoxic respiratory failure due to COVID19 tested positive two days ago and facility Will start on remdesivir Continue decadron Attempted to contact daughter to discuss EUA of convalescent plasma, will try again tomorrow MAT protocol Lovenox IS DVT ppx: Lovenox Diagnosis/Problems Diagnosis/Problems (1) Acute respiratory failure (2) TBI (traumatic brain injury) (3) Dementia (4) covid 19 and hypoxia (5) Agitation (6) Restrictive lung disease DARLENE LAMBERT MD Jul 06, 2020 12:24
[2020-07-06] MEDS ORDERED: REMDESIVIR INJ 200 MG in NS (IVPB) 210 ML IV NR (12:30)
--- NOTE | 2020-07-06 13:57 | NUR ---
Pt resting with eyes closed. wrote supportive note on pt's whiteboard and will follow up as able and/or requested.
--- NOTE | 2020-07-06 14:28 | NUR ---
"RD ASSESSMENT PMHx: HTN; CHF; dementia; TBI; GERD; obstructive bowel; chronic constipation; DM; PT INTERACTION: Note pt is currently in COVID isolation, per chart review. Note all diet information for nutrition assessment is per Enoch RN, or per chart review. Enoch states he is unsure of pt's current appetite. Note no intake has been recorded, as pt was asleep during 1meal, per chart review. Enoch states no issues with nausea, vomiting, constipation, or diarrhea that he is aware of. Note last BM was 07/06, and pt not currently on bowel regimen per chart review. Note recent 7# wt gain x6mon, per chart review. Note unable to determine current level of DM management, or recent HbA1c, per chart review. ABNORMAL NUTRITION-RELATED LAB VALUES LOW: Ca 8.3; HIGH: Cl 108; BUN 25; glu 134; Est. kcal needs: 2708-5752 kcal | 15-18 kcal/kg Est. Pro needs: 90-113 g Pro | 0.8-1.0 g Pro/kg PES STATEMENT: Inadequate oral intake (NI-2.1) related to loss of appetite as evidenced by chart review, and no recorded meals consumed. INTERVENTION: Continue with current diet order of CHO 60g/m 3snack diet. Pt may benefit from nutrition supplementation if PO intake declines. Did not offer diet education on DM management d/t COVID isolation. Would encourage pt to eat when able. Will continue to follow and reassess as pt needs, intake, and status change. Sangita Jolley, MS RD [phone] cell"
[2020-07-06] MEDS ORDERED: ARTIFICAL TEARS 0.4 ML UNIT DOSE (REFRESH PLUS) OU PRN (16:30)
[2020-07-06] MEDS ORDERED: ONDANSETRON 4 MG (ZOFRAN) ORAL DISSOLVE TAB PO PRN (16:30)
[2020-07-06] MEDS ORDERED: NON-FORMULARY MEDICATION 1 EA EA (Docusate Sodium 100 MG) PO PRN (16:30)
[2020-07-06] MEDS ORDERED: DOCUSATE SODIUM 100 MG (COLACE) CAP PO PRN (16:30)
[2020-07-06] MEDS ORDERED: ENOXAPARIN 40 MG/0.4 ML (LOVENOX) SYR SQ SCH (16:30)
[2020-07-06] MEDS ORDERED: LORATADINE (CLARITIN) 10 MG TAB PO PRN (16:30)
[2020-07-06] MEDS ORDERED: CARBOXYMETHYLCELLULOSE SODIUM OU PRN (16:30)
[2020-07-06] MEDS ORDERED: NON-FORMULARY MEDICATION 1 EA EA (Ondansetron HCl (Zofran) 4 MG) PO PRN (16:30)
[2020-07-06] MEDS: SERTRALINE 50 MG (ZOLOFT) TABLET PO SCH (17:50)
[2020-07-06] MEDS ORDERED: [UNRECOGNIZED DRUG - OTHER] PO SCH (21:00)
[2020-07-06] MEDS ORDERED: PHOSPHATE PO SCH (21:00)
[2020-07-06] MEDS: ENOXAPARIN 40 MG/0.4 ML (LOVENOX) SYR SC SCH (21:09)
[2020-07-06] MEDS: HALOPERIDOL 5 MG/ML (HALDOL) VIAL IM PRN (21:10)
[2020-07-06] MEDS: POT PHOS/NA PHOS (K-PHOS NEUTRAL) PO SCH (21:10)
[2020-07-06] MEDS: CHLORHEXIDINE 0.12% SOLN 15 ML (PERIDEX) UDC PO SCH (21:10)
[2020-07-06] MEDS: dexAMETHasone 6 MG TAB (DECADRON) PO SCH (21:10)
[2020-07-06] MEDS: LACTOBACILLUS ACIDOPHILUS (PROBIOTIC) CAPSULE PO SCH (21:10)
[2020-07-07] VITALS: BP 109/65
[2020-07-07 04:00] VITALS: BP 130/66
[2020-07-07 06:12] LABS: MEAN CORPUSCULAR VOLUME 89 fL (80-99)
[2020-07-07 06:14] LABS: HEMATOCRIT 36 % (40-54); HEMOGLOBIN 11.3 g/dL (13.3-17.7); MEAN CORPUSCULAR HEMOGLOBIN 28 pg (25-34); MEAN CORPUSCULAR HGB CONC 32 g/dL (32-36); PLATELET COUNT 127 10^3/uL (130-400); WHITE BLOOD COUNT 7.2 10^3/uL (4.3-11.0)
[2020-07-07 06:31] LABS: ALBUMIN 3.5 GM/DL (3.2-4.5); CHLORIDE 110 MMOL/L (98-107); SODIUM 139 MMOL/L (135-145)
[2020-07-07 06:33] LABS: CALCIUM 8.2 MG/DL (8.5-10.1)
[2020-07-07 06:34] LABS: GLUCOSE 133 MG/DL (70-105); TOTAL PROTEIN 7.3 GM/DL (6.4-8.2)
[2020-07-07 06:35] LABS: BILIRUBIN,TOTAL 0.3 MG/DL (0.1-1.0); CARBON DIOXIDE 19 MMOL/L (21-32)
[2020-07-07 06:37] LABS: ALKALINE PHOSPHATASE 69 U/L (40-136); CREATININE SERUM 0.97 MG/DL (0.60-1.30); GFR ESTIMATED > 60
[2020-07-07 06:38] LABS: BUN/CREATININE RATIO 32
[2020-07-07 06:40] LABS: ALANINE AMINOTRANSFERASE 13 U/L (0-55)
[2020-07-07 08:00] VITALS: BP 119/80
[2020-07-07] MEDS: RT-ALBUTEROL INHALER HFA (VENTOLIN HFA) 18 GM IH SCH ×3 (08:15→22:12)
[2020-07-07] MEDS: LACTOBACILLUS ACIDOPHILUS (PROBIOTIC) CAPSULE PO SCH ×2 (08:49→20:26)
[2020-07-07] MEDS: CHLORHEXIDINE 0.12% SOLN 15 ML (PERIDEX) UDC PO SCH ×2 (08:49→20:27)
[2020-07-07] MEDS: POT PHOS/NA PHOS (K-PHOS NEUTRAL) PO SCH ×2 (08:49→20:27)
--- NOTE | 2020-07-07 11:28 | Progress Note - Hospitalist ---
Subjective HPI/CC On Admission Date Seen by Provider: Jul 07, 2020 Time Seen by Provider: 11:22 Pt is a 74yoCM with a PMH of TBI, dementia, HTN, CHF, NIDDMII who presented to the ER due to shortness of breath and known COVID19 diagnosis. He is unable to provice me any history but ER note reveals that he was hypoxic on arrival. Overn ight he required 10lpm oxi-mask but has been able to be titrated down to 2lpm NC this morining. He has no complaints to me. I attempted to call his daughter under the phone number listed in our chart but was unable to connect with her. Subjective/Events-last exam Pt reports feeling better today. More alert than yesterday. Asking to go back to his room. Focused Exam Lactate Level 07/05/20 19:20: Lactic Acid Level 1.30 Objective Exam Vital Signs Vital Signs Date Time Temp Pulse Resp B/P (MAP) Pulse Ox O2 Delivery O2 Flow Rate FiO2 07/07/20 08:16 Nasal Cannula 5.00 92 07/07/20 08:00 36.2 79 22 119/80 (93) 98 Capillary Refill : Less Than 3 SecondsLess Than 3 Seconds General Appearance: No Apparent Distress, Chronically ill Respiratory: Lungs Clear, No Accessory Muscle Use, Other (on 5lpm) Cardiovascular: Regular Rate, Rhythm, No Murmur Gastrointestinal: Normal Bowel Sounds, Non Tender, Soft Neurologic/Psychiatric: Alert, Oriented x3, Normal Mood/Affect Results/Procedures Lab Laboratory Tests 07/07/20 05:27 Patient resulted labs reviewed. Imaging: Reviewed Imaging Report Assessment/Plan Assessment and Plan Assess & Plan/Chief Complaint Acute hypoxic respiratory failure due to COVID19 tested positive two days ago at facility Continue remdesivir Continue decadron Attempted to contact daughter to discuss convalescent plasma again today, azul evelin rings multiple times and then just hangs up, discussed with with RN who states she has called to check on her dad and he will do consent when she calls back MAT protocol Lovenox IS DVT ppx: lovenox Diagnosis/Problems Diagnosis/Problems (1) Acute respiratory failure (2) TBI (traumatic brain injury) (3) Dementia (4) covid 19 and hypoxia (5) Agitation (6) Restrictive lung disease DARLENE LAMBERT MD Jul 07, 2020 11:28
[2020-07-07 12:00] VITALS: BP 132/61
[2020-07-07] MEDS: REMDESIVIR INJ 100 MG in NS (IVPB) 230 ML IV SCH (12:40)
--- NOTE | 2020-07-07 12:40 | NUR ---
unable to scan meds due to malfunctioning scanner
[2020-07-07 15:34] VITALS: BP 122/61
--- NOTE | 2020-07-07 16:20 | NUR ---
CM/SS: Telephone call form [facility] - [facility] - she is requesting a update on the pt. She is given update and is aware that pt may be another couple of days here at the hospital. She verbalizes understanding.
[2020-07-07] MEDS: SERTRALINE 50 MG (ZOLOFT) TABLET PO SCH (17:34)
[2020-07-07] MEDS: HALOPERIDOL 5 MG/ML (HALDOL) VIAL IM PRN (17:36)
[2020-07-07 19:02] VITALS: BP 157/67
--- NOTE | 2020-07-07 19:53 | NUR ---
DR. HARDY NOTIFIED OF PT BEING VERY CONFUSED THIS EVENING, DAY SHIFT GAVE HALDOL INJECTION AT 1730 ALREADY AND HAS NOT HELPED PT. PT WILL NOT STOP YELLING OUT AND IS MAKING PATIENT'S OXYGEN DESATURATED. NEW ORDERS RECEIVED FOR ATIVAN 1MG IV Q6H PRN. WILL CONTINUE TO MONITOR.
[2020-07-07] MEDS: dexAMETHasone 6 MG TAB (DECADRON) PO SCH (20:26)
[2020-07-07] MEDS: ENOXAPARIN 40 MG/0.4 ML (LOVENOX) SYR SC SCH (20:26)
[2020-07-07] MEDS ORDERED: LORazepam INJ 2 MG/ML (ATIVAN) VIAL ONE (21:00)
[2020-07-07] MEDS: LORazepam INJ 2 MG/ML (ATIVAN) VIAL IVP PRN (21:26)
[2020-07-08] VITALS (12 sets, daily range): BP systolic 98–155; BP diastolic 63–94
[2020-07-08] MEDS: RT-ALBUTEROL INHALER HFA (VENTOLIN HFA) 18 GM IH SCH ×4 (02:35→18:48)
[2020-07-08 07:09] LABS: ALBUMIN 3.5 GM/DL (3.2-4.5); HEMOGLOBIN 11.4 g/dL (13.3-17.7); MEAN PLATELET VOLUME 13.5 fL (9.0-12.2); WHITE BLOOD COUNT 9.9 10^3/uL (4.3-11.0)
[2020-07-08 07:10] LABS: CHLORIDE 107 MMOL/L (98-107); POTASSIUM 3.7 MMOL/L (3.6-5.0); SODIUM 137 MMOL/L (135-145)
[2020-07-08 07:11] LABS: CALCIUM 8.1 MG/DL (8.5-10.1)
[2020-07-08 07:12] LABS: GLUCOSE 124 MG/DL (70-105); TOTAL PROTEIN 7.4 GM/DL (6.4-8.2)
[2020-07-08 07:13] LABS: CARBON DIOXIDE 18 MMOL/L (21-32)
[2020-07-08 07:15] LABS: ALKALINE PHOSPHATASE 68 U/L (40-136)
[2020-07-08 07:16] LABS: CREATININE SERUM 0.92 MG/DL (0.60-1.30); GFR ESTIMATED > 60
[2020-07-08 07:17] LABS: BUN/CREATININE RATIO 29
[2020-07-08 07:19] LABS: ALANINE AMINOTRANSFERASE 14 U/L (0-55)
[2020-07-08 08:39] LABS: BILIRUBIN,TOTAL 0.4 MG/DL (0.1-1.0)
[2020-07-08] MEDS: CHLORHEXIDINE 0.12% SOLN 15 ML (PERIDEX) UDC PO SCH ×2 (08:56→21:15)
[2020-07-08] MEDS: LORazepam INJ 2 MG/ML (ATIVAN) VIAL IVP PRN (08:56)
[2020-07-08] MEDS: POT PHOS/NA PHOS (K-PHOS NEUTRAL) PO SCH ×2 (08:56→21:15)
[2020-07-08] MEDS: LACTOBACILLUS ACIDOPHILUS (PROBIOTIC) CAPSULE PO SCH ×2 (09:26→20:33)
--- NOTE | 2020-07-08 10:13 | NUR ---
Notified Dr. Mittal that the patient status has declined since yesterday. Patient was on 2L NC yesterday, he was alert and able to assist aides with turning and changing. Today patient has been increased to 10L NC, he is lethargic and seems to dose off during assessment. Patient was very minimally able to assist with bed change. He has wheezes, crackles, and a little stridor present. Dr. Mittal ordered ABG, and portable chest xray. Daughter was notified at this time.
[2020-07-08] MEDS ORDERED: FUROSEMIDE 40 MG/4 ML INJ (LASIX) IVP NR (11:15)
--- NOTE | 2020-07-08 11:17 | Diagnostic Imaging Report ---
INDICATION: Hypoxia, decline in status. COMPARISON: 07/05/2020 TECHNIQUE: Single radiograph of the chest dated 07/08/2020. FINDINGS: The cardiac silhouette is stable. Pulmonary vasculature is obscured. Extensive bilateral pulmonary infiltrates are again identified, slightly worsened since the prior examination. No significant pleural effusion. No pneumothorax. No acute osseous abnormality. Multiple loops of gas-filled bowel are again noted within the upper abdomen. No acute osseous abnormality. IMPRESSION: 1. Slight worsening of extensive bilateral pulmonary infiltrates. 2. Prominent gas-filled loops of bowel within the upper abdomen. If there is concern for underlying bowel obstruction or ileus, dedicated radiographs of the abdomen would be recommended. Dictated by: Dictated on workstation # [id number]
[2020-07-08 11:18] LABS: ABG BASE EXCESS -1.9 MMOL/L (-2.5-2.5); ABG OXYGEN SATURATION 94 % (94-100); ABG PCO2 39 MMHG (35-45); ABG PH 7.38 (7.37-7.43); ABG PO2 70 MMHG (79-93); ABG TCO2 23.8 MMOL/L (21.0-31.0)
[2020-07-08 11:20] LABS: ALLENS TEST YES-POS; INSPIRED O2 10; PATIENT TEMP 97.4; VENTILATOR NO
--- NOTE | 2020-07-08 11:23 | Progress Note - Hospitalist ---
Subjective HPI/CC On Admission Date Seen by Provider: Jul 08, 2020 Time Seen by Provider: 10:05 Pt is a 74yoCM with a PMH of TBI, dementia, HTN, CHF, NIDDMII who presented to the ER due to shortness of breath and known COVID19 diagnosis. He is unable to provice me any history but ER note reveals that he was hypoxic on arrival. Overn ight he required 10lpm oxi-mask but has been able to be titrated down to 2lpm NC this morining. He has no complaints to me. I attempted to call his daughter under the phone number listed in our chart but was unable to connect with her. Subjective/Events-last exam Pt had worsening respiratory status this morning requirement 10lpm HFNC. Sats 96% while I was at bedside with this though. patient denies any complaints but not quite as alert as yesterday. In fact when asked he states he's "good." He did receive Ativan about 1 hour prior to my visit. Focused Exam Lactate Level 07/05/20 19:20: Lactic Acid Level 1.30 Objective Exam Vital Signs Vital Signs Date Time Temp Pulse Resp B/P (MAP) Pulse Ox O2 Delivery O2 Flow Rate FiO2 07/08/20 08:21 91 High Flow N/C 10.00 07/08/20 08:00 35.9 84 24 146/65 (92) 07/07/20 19:18 92 Capillary Refill : Less Than 3 SecondsLess Than 3 Seconds General Appearance: No Apparent Distress, WD/WN Respiratory: No Accessory Muscle Use, Crackles; No Wheezing; Other (on 10lpn HFNC) Cardiovascular: Regular Rate, Rhythm, No Murmur Gastrointestinal: Normal Bowel Sounds, Non Tender, Soft Neurologic/Psychiatric: Alert Results/Procedures Lab Laboratory Tests 07/08/20 06:43 Patient resulted labs reviewed. Imaging: Reviewed Imaging Report Assessment/Plan Assessment and Plan Assess & Plan/Chief Complaint Acute hypoxic respiratory failure due to COVID19 Worsening this morning Will trial some lasix given plasma given yesterday procal and BNP ordered Continue remdesivir Continue decadron Discussed with his daughter, pt ok with short term ventilation if needed given acute worsening, informed her that he is getting all the treatments available and we will do our best to support him through this, offered video v isit with him and she will call back this evening to see him. MAT protocol Lovenox IS DVT ppx: Lovenox Diagnosis/Problems Diagnosis/Problems (1) Acute respiratory failure Qualifiers: Respiratory failure complication: hypoxia Qualified Codes: J96.01 - Acute respiratory failure with hypoxia (2) TBI (traumatic brain injury) (3) Dementia (4) covid 19 and hypoxia (5) Agitation (6) Restrictive lung disease DARLENE LAMBERT MD Jul 08, 2020 11:23
[2020-07-08] MEDS ORDERED: LORazepam INJ 2 MG/ML (ATIVAN) VIAL IVP PRN (11:45)
[2020-07-08] MEDS: REMDESIVIR INJ 100 MG in NS (IVPB) 230 ML IV SCH (13:14)
--- NOTE | 2020-07-08 13:45 | NUR ---
Notified Dr. Mittal that the patients oxygen saturation is 88% on 10L NC and that RT was notified. Dr. Mittal states he may need Vapotherm and to have RT go ahead and bring it up.
--- NOTE | 2020-07-08 13:50 | NUR ---
Notified RT of the patients oxygen saturation and Dr. Mina suggestion of going ahead and bringing up Vapotherm at this time. RT stated the patient will need to be moved to a negative pressure room before being put on vapotherm. Patient moved to [facility]. RT notified. Patient put on 40L at 100%
--- NOTE | 2020-07-08 14:21 | Physical Therapy Evaluation ---
PT Evaluation-General Medical Diagnosis Admission Date Jul 05, 2020 at 20:26 Medical Diagnosis: COVID 19 Onset Date: Jul 08, 2020 Therapy Diagnosis Therapy Diagnosis: weakness Height/Weight Height (Feet): 5 Height (Inches): 11.00 Weight (Pounds): 240 Precautions Precautions/Isolations: Airborne Isolation, Contact Isolation, Droplet Isolation, Fall Prevention Referral Physician: Kyrie Reason for Referral: Evaluation/Treatment Medical History Pertinent Medical History: Alcoholism, COPD, DM, Dementia, HTN, Smoking, TBI Current History Admitted with COVID Reviewed History: Yes Social History Home: [facility] ([facility]) Prior Prior Level of Function SCALE: Activities may be completed with or without assistive devices. 1-Zjzkliacej-jdspwxa completes the activity by him/herself with no assistance from a helper. 5-Set-up or Clean-up Assistance-helper sets up or cleans up; patient completes activity. [place] assists only prior to or following the activity. 4-Supervision or Touching Assistance-helper provides verbal cues and/or touching/steadying and/or contact guard assistance as patient completes activity. Assistance may be provided throughout the activity or intermittently. 3-Partial/Moderate Assistance-helper does LESS THAN HALF the effort. [place] lifts, holds or supports trunk or limbs, but provides less than half the effort. 2-Substantial/Maximal Assistance-helper does MORE THAN HALF the effort. [place] lifts or holds trunk or limbs and provides more than half the effort. 4-Rwjwawmld-ckuktw does ALL the effort. Patient does none of the effort to complete the activity. Or, the assistance of 2 or more helpers is required for the patient to complete the activity. If activity was not attempted, code reason: 7-Patient Refused. 9-Not Applicable-not attempted and the patient did not perform the activity before the current illness, exacerbation or injury. 10-Not Attempted due to Environmental Limitations-(lack of equipment, weather restraints, etc.). 88-Not Attempted due to Medical Conditions or Safety Concerns. Pt is poor historian, unsure of PLOF PT Evaluation-Current Subjective Drowsy, smiles, allows PT eval Objective Patient Orientation: Person ROM/Strength ROM Lower Extremities WFL Strength Lower Extremities unable to assess Transfers Roll Left to Right (QC): 1 (dependent of 2) Pt attempts to participate but is dependent; dependent for scooting in bed as well. Treatment Rolling to assist nurse tech to change incont depend. Scooting to reposition. Pt dependent for all. Assessment/Needs Pt does attempt to participate, despite being dependent for mobility. Unsure of PLOF as pt is a poor historian. He will benefit from PT to address mobility and progress his transfers to max potential. Rehab Potential: Guarded PT Environmental Services Associate Goals Environmental Services Associate Goals PT Halfway Goals Time Frame: Jul 16, 2020 Roll Left & Right (QC): 3 Sit to Lying (QC): 3 Lying-Sitting on Side/Bed(QC): 3 Sit to Stand (QC): 3 Chair/Yix-lv-Etmkz Xfer(QC): 3 PT Plan Problem List Problem List: Activity Tolerance, Functional Strength, Safety, Balance, Trans barry, Bed Mobility Treatment/Plan Treatment Plan: Continue Plan of Care Treatment Plan: Bed Mobility, Education, Functional Activity Mallory, Functional Strength, Gait, Safety, Therapeutic Exercise, Transfers Treatment Duration: Jul 16, 2020 Frequency: 5 times per week Estimated Hrs Per Day: .25 hour per day Patient and/or Family Agrees t: Yes Discharge Recommendations Therapy Discharge Recommendati: Post Acute PT Time/GCodes Time In: 1115 Time Out: 1130 Total Billed Treatment Time: 15 Total Billed Treatment visit TALHA 15 TONI HERNANDEZ PT Jul 08, 2020 14:21
--- NOTE | 2020-07-08 15:00 | NUR ---
Notified Dr. Mittal that the patients oxygen saturation is 94% with 40L NC at 100% on the vapotherm and the patient is still very lethargic. Dr. Mittal recommends the patient be sent to the unit. House Sup. notified.
--- NOTE | 2020-07-08 15:30 | NUR ---
Gave report to Jaimee on ICU at this time. Patient will be going to ICU6
--- NOTE | 2020-07-08 15:30 | NUR ---
Received report from AMOS Weir. Pt to room cu6 when it is clean.
--- NOTE | 2020-07-08 16:01 | NUR ---
Notified patients daughter Patience that patient will be transferred up to ICU.
--- NOTE | 2020-07-08 16:02 | Occupational Therapy Eval ---
OT Evaluation-General/PLF Medical Diagnosis Admission Date Jul 05, 2020 at 20:26 Medical Diagnosis: COVID 19 Onset Date: Jul 08, 2020 Therapy Diagnosis Therapy Diagnosis: Weakness Height/Weight Height (Feet): 5 Height (Inches): 11.00 Weight (Pounds): 240 Precautions Precautions/Isolations: Contact Isolation, Droplet Isolation Referral Physician: Kyrie Referral Reason: Activity Tolerance, Self Care, Evaluation/Treatment, Strengthening/ROM Medical History Pertinent Medical History: Alcoholism, COPD, DM, Dementia, HTN, Smoking, TBI Additional Medical History Dementia Current History Pt. resident of [facility]. He came to ED with hypoxia and respiratory failure. Reviewed History: Yes Social History Home: Group Home ([facility]) Current Living Status: Entry Into Home: Level Entry ADL-Prior Level of Function SCALE: Activities may be completed with or without assistive devices. 1-Zpcxptutsz-wvgagcq completes the activity by him/herself with no assistance from a helper. 5-Set-up or Clean-up Assistance-helper sets up or cleans up; patient completes activity. [place] assists only prior to or following the activity. 4-Supervision or Touching Assistance-helper provides verbal cues and/or touching/steadying and/or contact guard assistance as patient completes activity. Assistance may be provided throughout the activity or intermittently. 3-Partial/Moderate Assistance-helper does LESS THAN HALF the effort. [place] lifts, holds or supports trunk or limbs, but provides less than half the effort. 2-Substantial/Maximal Assistance-helper does MORE THAN HALF the effort. [place] lifts or holds trunk or limbs and provides more than half the effort. 2-Dcvkzqkmm-gpbcrk does ALL the effort. Patient does none of the effort to complete the activity. Or, the assistance of 2 or more helpers is required for the patient to complete the activity. If activity was not attempted, code reason: 7-Patient Refused. 9-Not Applicable-not attempted and the patient did not perform the activity before the current illness, exacerbation or injury. 10-Not Attempted due to Environmental Limitations-(lack of equipment, weather restraints, etc.). 88-Not Attempted due to Medical Conditions or Safety Concerns. ADL PLOF Comments It is unknown at this time what pt's previous abilities are. Pt. verbalizes to this therapist that he lives in a home independently by himself. However, he is a resident at a nursing facility. Self Care: Unknown Functional Cognition: Unknown OT Current Status Subjective No pain reported. Mental Status/Objective Patient Orientation: Person Attachments: IV, Oxygen Other Treatments Pt. in room. Getting ready to be transferred to another room due to being put on vapotherm. Nursing reports that pt. was on 2 L 02 yesterday, and is currently on 15. He is still having difficulty breathing and will be transferred to get onto vapotherm. OT assists nursing with bed transport. Pt. has food in room and indicates he would like to eat. Nursing okay with this. Pt. is right handed, but has IV in right arm that beeps and occludes whenever he moves it. Nursing would like him to keep arm straight, so OT attempts to have pt. eat with left UE, with HOB elevated and pt. positioned correctly. Pt. is unable to do this well, and so OT feeds pt. what he can tolerate, which is some rice and pudding. Pt. indicates that he is done eating, and does hold his own drink and drinks. Due to medical needs changing, OT did not sit pt. on side of bed. Will write simple goals, and modify goals as pt's status progresses. Education OT Patient Education: Correct positioning, Modified ADL techniques, Purpose of tx/functional activities, Reviewed precautions, Rehab process Teaching Recipient: Patient Teaching Methods: Demonstration, Discussion Response to Teaching: Reinforcement Needed OT Short Term Goals Short Term Goals Time Frame: Jul 15, 2020 Eatin Oral hygiene: 3 OT Validation Software Facilitator Goals Group Home Goals Eating (QC): 4 Oral Hygiene (QC): 4 Toileting Hygiene (QC): 3 Upper Body Dressing (QC): 4 Additional Goals: 1-Demonstrate ADL Tasks, 2-Verbalize Understanding, 3- ImproveStrength/Mallory 1=Demonstrate adherence to instructed precautions during ADL tasks. 2=Patient will verbalize/demonstrate understanding of assistive devices/modifications for ADL. 3=Patient will improve strength/tolerance for activity to enable patient to perform ADL's. OT Education/Plan Problem List/Assessment Assessment: Decreased Activ Tolerance, Decreased Safety Aware, Decreased UE Strength, Dependent Transfers, Impaired Bed Mobility, Impaired Cognition, Impaired Coordination, Impaired Funct Balance, Impaired I ADL's, Impaired Self- Care Skills, Restricted Funct UE ROM Discharge Recommendations Plan/Recommendations: Continue POC Therapy Discharge Recommendati: 24 Hour Supervision Treatment Plan/Plan of Care Treatment,Training & Education: Yes Patient would benefit from OT for education, treatment and training to promote independence in ADL's, mobility, safety and/or upper extremity function for ADL's. Plan of Care: ADL Retraining, Functional Mobility, UE Funct Exercise/Act Treatment Duration: Jul 22, 2020 Frequency: 5 times per week Estimated Hrs Per Day: .25 hour per day Agreement: Yes Rehab Potential: Fair Time/GCodes Start Time: 14:10 Stop Time: 14:30 Total Time Billed (hr/min): 20 Billed Treatment Time 1, LAVON RODAS OT Jul 08, 2020 16:02
--- NOTE | 2020-07-08 16:38 | NUR ---
Pt to room cu6 via hospital bed. Pt placed back on vapotherm upon arrival to room. Pt anxious and stating "please don't let me ". Reassurance given to patient that he is doing ok. Pt orientated to room and situation. Person A&Ox4. Pt placed on bedside monitor, scd's applied, chase placed, and assessment completed at this time, see documentation. Pt states he has no further questions or concerns, agrees to use call light if needs anything. Pt informed that this rn will call and update his daughter.
--- NOTE | 2020-07-08 16:46 | NUR ---
Transferred patient to ICU6 at this time. Patient with Jaimee TRINIDAD
--- NOTE | 2020-07-08 17:10 | NUR ---
Phone call placed to daughterPatience. No answer, message was left to call back to ICU for update.
[2020-07-08] MEDS: SERTRALINE 50 MG (ZOLOFT) TABLET PO SCH (18:20)
--- NOTE | 2020-07-08 19:54 | NUR ---
pt's daughter yael called, informed her pt was sleeping at this time et. this rn would assist pt to call her when awoken for shift assessment/medications.
[2020-07-08] MEDS: dexAMETHasone 6 MG TAB (DECADRON) PO SCH (20:33)
--- NOTE | 2020-07-08 20:35 | NUR ---
assissted pt to call daughter yael [phone].
[2020-07-08] MEDS: ENOXAPARIN 40 MG/0.4 ML (LOVENOX) SYR SC SCH (20:52)
[2020-07-09] VITALS (19 sets, daily range): BP systolic 100–140; BP diastolic 73–95
[2020-07-09] MEDS: RT-ALBUTEROL INHALER HFA (VENTOLIN HFA) 18 GM IH SCH ×4 (03:40→19:14)
[2020-07-09 04:58] LABS: BASOPHILS % (AUTO) 0 % (0-10); EOSINOPHILS % (AUTO) 0 % (0-10); MEAN CORPUSCULAR HEMOGLOBIN 28 pg (25-34)
[2020-07-09 05:00] LABS: HEMATOCRIT 38 % (40-54); HEMOGLOBIN 11.9 g/dL (13.3-17.7); LYMPHOCYTES # (AUTO) 0.9 10^3/uL (1.0-4.0); LYMPHOCYTES % (AUTO) 9 % (12-44); MEAN CORPUSCULAR HGB CONC 32 g/dL (32-36); MEAN CORPUSCULAR VOLUME 88 fL (80-99); MEAN PLATELET VOLUME 13.3 fL (9.0-12.2); MONOCYTES # (AUTO) 0.9 10^3/uL (0.0-1.0); MONOCYTES % (AUTO) 9 % (0-12); NEUTROPHILS # (AUTO) 8.3 10^3/uL (1.8-7.8); NEUTROPHILS % (AUTO) 82 % (42-75); PLATELET COUNT 170 10^3/uL (130-400); WHITE BLOOD COUNT 10.1 10^3/uL (4.3-11.0)
[2020-07-09 05:10] LABS: ALBUMIN 3.6 GM/DL (3.2-4.5); CHLORIDE 105 MMOL/L (98-107); SODIUM 137 MMOL/L (135-145)
[2020-07-09 05:11] LABS: CALCIUM 8.3 MG/DL (8.5-10.1)
[2020-07-09 05:13] LABS: GLUCOSE 136 MG/DL (70-105); TOTAL PROTEIN 7.7 GM/DL (6.4-8.2)
[2020-07-09 05:14] LABS: BILIRUBIN,TOTAL 0.5 MG/DL (0.1-1.0); CARBON DIOXIDE 21 MMOL/L (21-32)
[2020-07-09 05:16] LABS: ALKALINE PHOSPHATASE 67 U/L (40-136); CREATININE SERUM 0.92 MG/DL (0.60-1.30); GFR ESTIMATED > 60; PHOSPHORUS 3.2 MG/DL (2.3-4.7)
[2020-07-09 05:17] LABS: BUN/CREATININE RATIO 28
[2020-07-09 05:19] LABS: ALANINE AMINOTRANSFERASE 14 U/L (0-55); MAGNESIUM 2.3 MG/DL (1.6-2.4)
[2020-07-09] MEDS: LACTOBACILLUS ACIDOPHILUS (PROBIOTIC) CAPSULE PO SCH ×2 (08:55→20:35)
[2020-07-09] MEDS: POT PHOS/NA PHOS (K-PHOS NEUTRAL) PO SCH ×2 (08:55→20:35)
[2020-07-09] MEDS: CHLORHEXIDINE 0.12% SOLN 15 ML (PERIDEX) UDC PO SCH ×2 (08:55→20:35)
--- NOTE | 2020-07-09 10:04 | Occ Therapy Progress Note ---
Therapy Progress Note OT evaluated pt yesterday. Since then, pt had decline in medical status and was transferred to higher level of care. New orders required for new eval/ continued OT services. PARMINDER SHEN OTR Jul 09, 2020 10:04
--- NOTE | 2020-07-09 10:53 | Pulmonary Consultation ---
History of Present Illness History of Present Illness Date Seen by Provider: Jul 09, 2020 Time Seen by Provider: 10:47 Date of Admission Allergies and Home Medications Allergies Coded Allergies: No Known Drug Allergies (Unverified , 10/26/18) Home Medications Acetaminophen 500 Mg Tablet, 500 MG PO Q6H PRN for PAIN-MILD (1-4) OR TEMPATURE, (Reported) Carboxymethylcellulose Sodium 15 Ml Drops, 2 DROPS OU Q4H PRN for DRY EYES, (Reported) Chlorhexidine Gluconate 473 Ml Mouthwash, 15 ML PO BID, (Reported) SWISH AND SPIT Docusate Sodium 100 Mg Tablet, 100 MG PO DAILY PRN for CONSTIPATION-1ST LINE, (Reported) L. Acidophilus/L.bulgaricus 1 Each Tablet, 1 EACH PO BID, (Reported) Lactulose 20 Gm/30 Ml Solution, 30 ML PO Q12H PRN for CONSTIPATION-3RD LINE, (Reported) Loratadine 10 Mg Tablet, 10 MG PO DAILY PRN for ALLERGY SYMPTOMS, (Reported) Ondansetron HCl 4 Mg Tab, 4 MG PO Q4H PRN for NAUSEA/VOMITING-1ST LINE, (Reported) Phosphate 1 Ea Packet, 1 EA PO BID, (Reported) Sertraline HCl 50 Mg Tablet, 75 MG PO 1800, (Reported) TAKES 1 & (50MG) TABS Past Typhyle-Pxsxuf-Ydmgtn Hx Past Med/Social Hx: Reviewed Nursing Past Med/Soc Hx Patient Social History Alcohol Use: Rarely Uses Number of Drinks Today: AA Alcohol Beverage of Choice: Beer Recreational Drug Use: No Smoking Status: Former Smoker Type Used: Cigarettes Former Smoker, Quit: Mar 15, 2004 2nd Hand Smoke Exposure: No Recent Foreign Travel: No Contact w/Someone Who Travel: No Recent Infectious Disease Expo: No Recent Hopitalizations: No Immunizations Up To Date Tetanus Booster (TDap): More than 5yrs PED Vaccines UTD: No Date of Pneumonia Vaccine: May 09, 2019 Date of Influenza Vaccine: May 16, 2020 Seasonal Allergies Seasonal Allergies: No Past Medical History Surgeries: Yes (HEAD INJURY - BLOOD CLOT IN BRAIN REMOVED, HERNIA REPAIR) Joint Replacement, Neurological, Orthopedic Respiratory: No 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, CONGESTIVE HEART FAILURE) Hypertension Neurological: Yes (BRAIN INJURY IN 1978, HAD SEIZURES FOR A FEW WEEKS AFTER, NONE SINCE) Dementia, Traumatic Brain Injury Reproductive Disorders: No Sexually Transmitted Disease: No HIV/AIDS: No Genitourinary: No Gastrointestinal: Yes (HX OF BOWEL OBSTRUCTION IN 2014) Gastroesophageal Reflux, Obstructive Bowel, Chronic Constipation Musculoskeletal: Yes Arthritis Endocrine: Yes Diabetes, Non-Insulin dep HEENT: Yes ([place]ING GLASSES) Loss of Vision: Bilateral Hearing Impairment: Hard of Hearing Cancer: No Psychosocial: Yes Sleep Difficulties, Depression Integumentary: No Blood Disorders: No Adverse Reaction/Blood Tranf: No Family Medical History Arthritis 19 FATHER G8 SISTER Cataracts 19 FATHER Dementia 19 FATHER Hypertension 19 FATHER 19 MOTHER G8 BROTHER Myocardial infarction G8 BROTHER Thyroid disease 19 FATHER Heart Disease, Hypertension Review of Systems Time Seen by Provider: 10:56 Sepsis Event Evaluation Height, Weight, BMI Height: 5'11.00" Weight: 240lbs. oz. 108.148619ty; 36.89 BMI Method:Stated Exam Exam Vital Signs Date Time Temp Pulse Resp B/P (MAP) Pulse Ox O2 Delivery O2 Flow Rate FiO2 07/09/20 10:00 72 119/91 (100) 96 Vapotherm 40.00 80.00 07/09/20 09:00 80 22 128/95 (106) 94 Vapotherm 40.00 80.00 07/09/20 08:00 93 Vapotherm 40.00 80 07/09/20 08:00 74 17 136/85 (102) 96 Vapotherm 40.00 80.00 07/09/20 08:00 36.0 Vapotherm 40.00 80.00 07/09/20 07:00 76 18 140/81 (100) 94 Vapotherm 40.00 100.00 07/09/20 07:00 77 07/09/20 06:00 78 13 123/79 (94) 95 Vapotherm 40.00 100.00 07/09/20 05:00 75 19 131/79 (96) 96 Vapotherm 40.00 100.00 07/09/20 04:00 77 18 127/82 (97) 97 Vapotherm 40.00 100.00 07/09/20 03:00 79 18 122/76 (91) 95 Vapotherm 40.00 100.00 07/09/20 02:00 82 21 116/73 (87) 95 Vapotherm 40.00 100.00 07/09/20 01:00 85 07/09/20 01:00 83 21 131/78 (95) 95 Vapotherm 40.00 100.00 07/09/20 00:14 36.6 83 21 133/80 (97) 96 Vapotherm 40.00 100.00 07/08/20 23:10 83 21 130/82 (98) 96 Vapotherm 40.00 100.00 07/08/20 22:11 83 24 98/86 (90) 93 Vapotherm 40.00 100.00 07/08/20 21:00 85 18 129/88 (102) 93 40.00 100.00 07/08/20 20:35 93 Vapotherm 40.00 100 07/08/20 20:00 80 21 133/91 (105) 96 Vapotherm 40.00 100.00 07/08/20 19:26 37.1 07/08/20 19:00 83 07/08/20 19:00 84 26 155/94 (114) 95 Vapotherm 40.00 100.00 07/08/20 18:48 97 Vapotherm 40.00 100 07/08/20 18:00 78 19 150/90 (110) 94 Vapotherm 40.00 100.00 07/08/20 17:08 82 07/08/20 16:56 36.0 87 14 139/66 (90) 91 Vapotherm 40.00 100.00 07/08/20 16:38 91 Vapotherm 10.00 100 07/08/20 15:23 36.6 85 22 123/68 (86) 96 Vapotherm 30.00 100.00 07/08/20 15:08 94 Vapotherm 40.00 100 07/08/20 12:00 36.4 76 24 122/63 (82) 95 Nasal Cannula 10.00 I & O 07/09/20 07:00 Intake Total 740 ml Output Total 1850 ml Balance -1110 ml Height & Weight Height: 5'11.00" Weight: 240lbs. oz. 108.098364ip; 36.89 BMI Method:Stated General Appearance: No Apparent Distress, WD/WN HEENT: Moist Mucous Membranes Neck: Normal Inspection, Supple Respiratory: No Accessory Muscle Use, Crackles; No Wheezing; Other (on 10lpn HFNC) Cardiovascular: Regular Rate, Rhythm, No Murmur Capillary Refill: Less Than 3 Seconds Extremity: No Calf Tenderness, Pedal Edema Neurologic/Psychiatric: Alert Skin: Normal Color, Warm/Dry Results Lab Laboratory Tests 07/08/20 06:43 07/09/20 04:10 Assessment/Plan Assessment/Plan Acute hypoxic respiratory failure due to COVID19 Repeat Lasix -Repeat CXR -Check DDIMer Continue remdesivir Continue decadron Lovenox IS Positive blood culture 1/2 -Probably contamination - No leukocytosis, No fever -Check UA DVT /GI ppx: Lovenox, protonix SIVAN PEREZ DO Jul 09, 2020 10:53
[2020-07-09] MEDS ORDERED: FUROSEMIDE 40 MG/4 ML INJ (LASIX) IVP NR (11:00)
[2020-07-09] MEDS ORDERED: KCL 20 MEQ TAB (K-DUR) PO NR (11:00)
--- NOTE | 2020-07-09 11:19 | Diagnostic Imaging Report ---
INDICATION: Shortness of breath. TECHNIQUE: Single view chest 11:03 AM. CORRELATION STUDY: 07/08/2020 FINDINGS: Heart size and mediastinum are generally stable. Vascular somewhat obscured. Coarse bilateral pulmonary infiltrates do persist perhaps slightly improved from prior. Asymmetrically elevated right diaphragm. IMPRESSION: 1. Extensive bilateral pulmonary infiltrates do persist but overall appearing slightly improved from prior. Dictated by: Dictated on workstation # [id number]
[2020-07-09] MEDS: REMDESIVIR INJ 100 MG in NS (IVPB) 230 ML IV SCH (12:04)
[2020-07-09 12:15] LABS: BILIRUBIN,URINE NEGATIVE (NEGATIVE); CLARITY,URINE SL CLOUDY; COLOR,URINE YELLOW; GLUCOSE, URINE (UA) NEGATIVE (NEGATIVE); KETONES,URINE NEGATIVE (NEGATIVE); LEUKOCYTE ESTERASE ,URINE 2+ (NEGATIVE); NITRITE,URINE NEGATIVE (NEGATIVE); PH,URINE 6.5 (5-9); PROTEIN,URINE 2+ (NEGATIVE)
--- NOTE | 2020-07-09 12:21 | NUR ---
Phone call placed to Daughter Patience, no answer. Will attempt to call later.
[2020-07-09 12:24] LABS: BACTERIA,URINE LARGE /HPF; RBC,URINE 50-100 /HPF; WBC,URINE TNTC /HPF
--- NOTE | 2020-07-09 12:46 | Occupational Therapy Eval ---
OT Evaluation-General/PLF Medical Diagnosis Admission Date Jul 05, 2020 at 20:26 Medical Diagnosis: COVID 19 Onset Date: Jul 08, 2020 Therapy Diagnosis Therapy Diagnosis: Decreased ADL status Height/Weight Height (Inches): 11.00 Weight (Pounds): 240 Precautions Precautions/Isolations: Contact Isolation, Droplet Isolation Referral Physician: Kyrie Referral Reason: Activity Tolerance, Self Care, Evaluation/Treatment, Strengthening/ROM Medical History Pertinent Medical History: Alcoholism, COPD, DM, Dementia, HTN, Smoking, TBI Current History COVID +, admits from [facility] to ED with hypoxia Reviewed History: Yes Social History Home: Intermediate ([facility]) Current Living Status: Entry Into Home: Level Entry ADL-Prior Level of Function SCALE: Activities may be completed with or without assistive devices. 7-Nbztnejcjq-syogiso completes the activity by him/herself with no assistance from a helper. 5-Set-up or Clean-up Assistance-helper sets up or cleans up; patient completes activity. [place] assists only prior to or following the activity. 4-Supervision or Touching Assistance-helper provides verbal cues and/or touching/steadying and/or contact guard assistance as patient completes activity. Assistance may be provided throughout the activity or intermittently. 3-Partial/Moderate Assistance-helper does LESS THAN HALF the effort. [place] lifts, holds or supports trunk or limbs, but provides less than half the effort. 2-Substantial/Maximal Assistance-helper does MORE THAN HALF the effort. [place] lifts or holds trunk or limbs and provides more than half the effort. 2-Rutncjjwf-qgqidd does ALL the effort. Patient does none of the effort to complete the activity. Or, the assistance of 2 or more helpers is required for the patient to complete the activity. If activity was not attempted, code reason: 7-Patient Refused. 9-Not Applicable-not attempted and the patient did not perform the activity before the current illness, exacerbation or injury. 10-Not Attempted due to Environmental Limitations-(lack of equipment, weather restraints, etc.). 88-Not Attempted due to Medical Conditions or Safety Concerns. ADL PLOF Comments Pt unable to provide PLOF. Based on notes and clinical judgment, pt required assist for cognition and ADLs. Self Care: Needed Some Help Functional Cognition: Needed Some Help Drive Self: No OT Current Status Subjective Pt's nurse agrees to OT eval. Nursing states got EOB and wasn't able to stand. Pt asleep in bed upon entry. Pt agrees to tx when wake. Pt denies pain. Mental Status/Objective Attachments: Mason Catheter, Oxygen, SCD's, Telemetry Current Glasses/Contacts: No Hearing Aids: No Hand Dominance: Right Upper Extremity ROM WFL BUE Upper Extremity Coordination WFL BUE Upper Extremity Sensation DNT Upper Extremity Strength WFL BUE (4/5) ADL-Treatment Eating (QC): 5 (s/u. Pt requrired assist with cutting. ) On/Off Footwear (QC): 1 Toileting Hygiene (QC): 1 Other Treatments Pt bed mob supine to sit with mod Ax2. Sits with CGA-min A for EOB balance. Pt sit to stand max Ax2 (TD). Returns to sit. Pt is soiled with BM. Return to supine with max A. Pt is changed with TD/ wiped up and bedding changed. All needs met, call light in reach. 02 maintains above 90%. nursing present. Education OT Patient Education: Correct positioning, Purpose of tx/functional activities, Safety issues, Transfer techniques Teaching Recipient: Patient Teaching Methods: Demonstration, Discussion Response to Teaching: Verbalize Understanding, Return Demonstration OT Short Term Goals Short Term Goals Time Frame: Jul 15, 2020 Eatin Oral hygiene: 3 OT Custodial Goals Custodial Goals Eating (QC): 4 Oral Hygiene (QC): 4 Toileting Hygiene (QC): 3 Upper Body Dressing (QC): 4 Additional Goals: 1-Demonstrate ADL Tasks, 2-Verbalize Understanding, 3- ImproveStrength/Mallory 1=Demonstrate adherence to instructed precautions during ADL tasks. 2=Patient will verbalize/demonstrate understanding of assistive devices/modifications for ADL. 3=Patient will improve strength/tolerance for activity to enable patient to perform ADL's. OT Education/Plan Problem List/Assessment Assessment: Decreased Activ Tolerance, Decreased Safety Aware, Decreased UE Strength, Dependent Transfers, Impaired Bed Mobility, Impaired Cognition, Impaired Funct Balance, Impaired I ADL's, Impaired Self-Care Skills Discharge Recommendations Plan/Recommendations: Continue POC Therapy Discharge Recommendati: 24 Hour Supervision Treatment Plan/Plan of Care Treatment,Training & Education: Yes Patient would benefit from OT for education, treatment and training to promote independence in ADL's, mobility, safety and/or upper extremity function for ADL's. Plan of Care: ADL Retraining, Functional Mobility, UE Funct Exercise/Act Treatment Duration: Jul 22, 2020 Frequency: 5 times per week Estimated Hrs Per Day: .25 hour per day Agreement: Yes Rehab Potential: Fair Time/GCodes Start Time: 11:40 Stop Time: 11:55 Total Time Billed (hr/min): 15 Billed Treatment Time 1, EVM (15) PARMINDER SHEN OTR Jul 09, 2020 12:46
--- NOTE | 2020-07-09 13:19 | Physical Therapy Daily Note ---
PT Daily Note-Current Subjective Patient is in bed on vapotherm Mental Status Patient Orientation: Confused Attachments: Oxygen (vapotherm), Mason Catheter, IV Transfers SCALE: Activities may be completed with or without assistive devices. 1-Htrtlqzltd-yepjchq completes the activity by him/herself with no assistance from a helper. 5-Set-up or Clean-up Assistance-helper sets up or cleans up; patient completes activity. [place] assists only prior to or following the activity. 4-Supervision or Touching Assistance-helper provides verbal cues and/or touching/steadying and/or contact guard assistance as patient completes activity. Assistance may be provided throughout the activity or intermittently. 3-Partial/Moderate Assistance-helper does LESS THAN HALF the effort. [place] lifts, holds or supports trunk or limbs, but provides less than half the effort. 2-Substantial/Maximal Assistance-helper does MORE THAN HALF the effort. [place] lifts or holds trunk or limbs and provides more than half the effort. 9-Piylgfspv-iezpvy does ALL the effort. Patient does none of the effort to complete the activity. Or, the assistance of 2 or more helpers is required for the patient to complete the activity. If activity was not attempted, code reason: 7-Patient Refused. 9-Not Applicable-not attempted and the patient did not perform the activity before the current illness, exacerbation or injury. 10-Not Attempted due to Environmental Limitations-(lack of equipment, weather restraints, etc.). 88-Not Attempted due to Medical Conditions or Safety Concerns. Sit to Lying (QC): 1 (x 2) Lying to Sitting/Side of Bed(Q: 1 (x 2) Sit to Stand (QC): 1 (x 2) patient is dependent with all mobility x 2 skilled staff/retropulsive sitting EOB with max assist to maintain upright position Gait Training Does the Patient Walk?: No and Walking Goal NOT indicated Exercises Supine Ex: Ankle pumps, Heel Slides, Straight leg raise Treatments [place] with OT due to complexity of treatment. Patient is agitated with all interaction and is incontinent BM requiring assistance to cleanse and change bedding. Assessment Patient transferred to ICU due to pulmonary demand. PT/OT cotreat due to complexity. Goals and POC remain the same as on acute. PT Workers Compensation Claims Supervisor Goals Workers Compensation Claims Supervisor Goals PT [facility] Goals Time Frame: Jul 16, 2020 Roll Left & Right (QC): 3 Sit to Lying (QC): 3 Lying-Sitting on Side/Bed(QC): 3 Sit to Stand (QC): 3 Chair/Xtz-yl-Qbyea Xfer(QC): 3 PT Plan Treatment/Plan Treatment Plan: Continue Plan of Care Treatment Plan: Bed Mobility, Education, Functional Activity Mallory, Functional Strength, Gait, Safety, Therapeutic Exercise, Transfers Treatment Duration: Jul 16, 2020 Frequency: 5 times per week Estimated Hrs Per Day: .25 hour per day Patient and/or Family Agrees t: Yes Time/GCodes Time In: 1140 Time Out: 1155 Total Billed Treatment Time: 15 Total Billed Treatment 1 visit EVModC 15 min XAVI MENDEZ PT Jul 09, 2020 13:19
--- NOTE | 2020-07-09 13:24 | NUR ---
Received phone call from sisterMaria Guadalupe. Password obtained. Update given and questions answered. Sister informed that patient was now cardiac stepdown status and would move to the stepdown side when a bed was available. Sister states she has no further questions or concerns and she will pass on update to the rest of the family.
--- NOTE | 2020-07-09 15:38 | NUR ---
report given to AMOS Contreras.
[2020-07-09] MEDS: SERTRALINE 50 MG (ZOLOFT) TABLET PO SCH (16:58)
[2020-07-09] MEDS: ENOXAPARIN 40 MG/0.4 ML (LOVENOX) SYR SC SCH (20:35)
[2020-07-09] MEDS: dexAMETHasone 6 MG TAB (DECADRON) PO SCH (20:35)
[2020-07-10 03:39] LABS: BASOPHILS % (AUTO) 0 % (0-10); EOSINOPHILS % (AUTO) 0 % (0-10); HEMATOCRIT 37 % (40-54)
[2020-07-10 03:41] LABS: LYMPHOCYTES # (AUTO) 1.1 10^3/uL (1.0-4.0); LYMPHOCYTES % (AUTO) 9 % (12-44); MEAN CORPUSCULAR HEMOGLOBIN 28 pg (25-34); MEAN CORPUSCULAR HGB CONC 32 g/dL (32-36); MEAN CORPUSCULAR VOLUME 87 fL (80-99); MEAN PLATELET VOLUME 13.6 fL (9.0-12.2); MONOCYTES # (AUTO) 0.8 10^3/uL (0.0-1.0); MONOCYTES % (AUTO) 7 % (0-12); NEUTROPHILS # (AUTO) 10.2 10^3/uL (1.8-7.8); NEUTROPHILS % (AUTO) 84 % (42-75); PLATELET COUNT 183 10^3/uL (130-400); WHITE BLOOD COUNT 12.2 10^3/uL (4.3-11.0)
[2020-07-10 03:45] LABS: ALBUMIN 3.5 GM/DL (3.2-4.5); CHLORIDE 102 MMOL/L (98-107); POTASSIUM 4.5 MMOL/L (3.6-5.0); SODIUM 134 MMOL/L (135-145)
[2020-07-10 03:47] LABS: GLUCOSE 144 MG/DL (70-105)
[2020-07-10 03:48] LABS: CARBON DIOXIDE 22 MMOL/L (21-32)
[2020-07-10 03:49] LABS: BILIRUBIN,TOTAL 0.6 MG/DL (0.1-1.0)
[2020-07-10] MEDS: RT-ALBUTEROL INHALER HFA (VENTOLIN HFA) 18 GM IH SCH ×3 (03:50→21:18)
[2020-07-10 03:51] LABS: ALKALINE PHOSPHATASE 73 U/L (40-136); CREATININE SERUM 0.93 MG/DL (0.60-1.30); GFR ESTIMATED > 60; PHOSPHORUS 3.3 MG/DL (2.3-4.7)
[2020-07-10 03:52] LABS: BUN/CREATININE RATIO 34
[2020-07-10 03:54] LABS: ALANINE AMINOTRANSFERASE 20 U/L (0-55); MAGNESIUM 2.2 MG/DL (1.6-2.4)
[2020-07-10 05:00] VITALS: BP 121/80
[2020-07-10 07:23] VITALS: BP 135/101
--- NOTE | 2020-07-10 08:48 | Progress Note - Hospitalist ---
Subjective HPI/CC On Admission Date Seen by Provider: Jul 10, 2020 Time Seen by Provider: 08:32 Pt is a 74yoCM with a PMH of TBI, dementia, HTN, CHF, NIDDMII who presented to the ER due to shortness of breath and known COVID19 diagnosis. He is unable to provice me any history but ER note reveals that he was hypoxic on arrival. Overn ight he required 10lpm oxi-mask but has been able to be titrated down to 2lpm NC this morining. He has no complaints to me. I attempted to call his daughter under the phone number listed in our chart but was unable to connect with her. Subjective/Events-last exam Pt reports feeling well. Much more alert today. Still on Vapotherm. No complaints. Objective Exam Vital Signs Vital Signs Date Time Temp Pulse Resp B/P (MAP) Pulse Ox O2 Delivery O2 Flow Rate FiO2 07/10/20 07:56 92 Vapotherm 40.00 90 07/10/20 07:23 36.2 68 15 135/101 (112) Capillary Refill : Less Than 3 SecondsLess Than 3 Seconds General Appearance: No Apparent Distress, Chronically ill, Obese Respiratory: Decreased Breath Sounds; No Rhonci, No Wheezing; Other (on Vapotherm 40lpm 90%) Cardiovascular: Regular Rate, Rhythm, No Murmur Gastrointestinal: Normal Bowel Sounds, Non Tender, Soft Neurologic/Psychiatric: Alert, Oriented x3 Results/Procedures Lab Laboratory Tests 07/10/20 03:27 Patient resulted labs reviewed. Imaging: Reviewed Imaging Report Assessment/Plan Assessment and Plan Assess & Plan/Chief Complaint Acute hypoxic respiratory failure due to COVID19 Stable on Vapotherm procal and BNP ordered Continue remdesivir Continue decadron s/p 1 unit CP MAT protocol Lovenox IS DVT ppx: Lovenox Diagnosis/Problems Diagnosis/Problems (1) Acute respiratory failure Qualifiers: Respiratory failure complication: hypoxia Qualified Codes: J96.01 - Acute respiratory failure with hypoxia (2) TBI (traumatic brain injury) (3) Dementia (4) covid 19 and hypoxia (5) Agitation (6) Restrictive lung disease DARLENE LAMBERT MD Jul 10, 2020 08:48
[2020-07-10] MEDS: PANTOPRAZOLE 40 MG (PROTONIX) TAB PO SCH (09:13)
[2020-07-10] MEDS: LACTOBACILLUS ACIDOPHILUS (PROBIOTIC) CAPSULE PO SCH ×2 (09:13→19:50)
[2020-07-10] MEDS: ACETAMINOPHEN 500 MG TAB (TYLENOL) PO PRN (09:15)
[2020-07-10 11:06] VITALS: BP 148/82
[2020-07-10] MEDS: POT PHOS/NA PHOS (K-PHOS NEUTRAL) PO SCH ×2 (12:18→19:50)
[2020-07-10] MEDS: REMDESIVIR INJ 100 MG in NS (IVPB) 230 ML IV SCH (12:18)
[2020-07-10] MEDS: CHLORHEXIDINE 0.12% SOLN 15 ML (PERIDEX) UDC PO SCH ×2 (12:18→22:56)
--- NOTE | 2020-07-10 12:53 | Physical Therapy Daily Note ---
PT Daily Note-Current Subjective Osq6prn to bed exercises. Transfers SCALE: Activities may be completed with or without assistive devices. 3-Zoclrckgyw-hlgtwfj completes the activity by him/herself with no assistance from a helper. 5-Set-up or Clean-up Assistance-helper sets up or cleans up; patient completes activity. [place] assists only prior to or following the activity. 4-Supervision or Touching Assistance-helper provides verbal cues and/or touching/steadying and/or contact guard assistance as patient completes activity. Assistance may be provided throughout the activity or intermittently. 3-Partial/Moderate Assistance-helper does LESS THAN HALF the effort. [place] lifts, holds or supports trunk or limbs, but provides less than half the effort. 2-Substantial/Maximal Assistance-helper does MORE THAN HALF the effort. [place] lifts or holds trunk or limbs and provides more than half the effort. 9-Zaqiguocl-nmahds does ALL the effort. Patient does none of the effort to complete the activity. Or, the assistance of 2 or more helpers is required for the patient to complete the activity. If activity was not attempted, code reason: 7-Patient Refused. 9-Not Applicable-not attempted and the patient did not perform the activity before the current illness, exacerbation or injury. 10-Not Attempted due to Environmental Limitations-(lack of equipment, weather restraints, etc.). 88-Not Attempted due to Medical Conditions or Safety Concerns. Exercises Supine Ex: Ankle pumps, Quad Set, Glut sets, Heel Slides, Short Arc Quads, Scooting, Hip abd/add Supine Reps: 10 Treatments Oxygen in situ during and post treatment. Pt did not get out of bed. Bed alarm activated after treatment. Assessment Current Status: Good Progress More alert today. Interacted well with this PT PT Video Engineer Goals [facility] Goals PT Video Engineer Goals Time Frame: Jul 16, 2020 Roll Left & Right (QC): 3 Sit to Lying (QC): 3 Lying-Sitting on Side/Bed(QC): 3 Sit to Stand (QC): 3 Chair/Ozr-bp-Zqyxk Xfer(QC): 3 PT Plan Problem List Problem List: Activity Tolerance, Functional Strength, Safety Treatment/Plan Treatment Plan: Continue Plan of Care Treatment Plan: Bed Mobility, Education, Functional Activity Mallory, Functional Strength, Gait, Safety, Therapeutic Exercise, Transfers Treatment Duration: Jul 16, 2020 Frequency: 5 times per week Estimated Hrs Per Day: .25 hour per day Patient and/or Family Agrees t: Yes Safety Risks/Education Patient Education: Safety Issues Teaching Recipient: Patient Teaching Methods: Discussion Response to Teaching: Reinforcement Needed Time/GCodes Time In: 1025 Time Out: 1040 Total Billed Treatment Time: 15 Total Billed Treatment visit EX 15 TONI HERNANDEZ PT Jul 10, 2020 12:53
[2020-07-10 15:19] VITALS: BP 127/79
[2020-07-10] MEDS: SERTRALINE 50 MG (ZOLOFT) TABLET PO SCH (18:13)
[2020-07-10] MEDS: LACTULOSE SYRUP 10GM/15ML (ENULOSE) 30ML UDC PO PRN (18:15)
[2020-07-10] MEDS ORDERED: VANCOMYCIN INJECTION 0.1 MG in NS (IVPB) 250 ML IV SCH (18:15)
[2020-07-10 18:58] VITALS: BP 120/97
[2020-07-10] MEDS: ENOXAPARIN 40 MG/0.4 ML (LOVENOX) SYR SC SCH (19:50)
[2020-07-10] MEDS: dexAMETHasone 6 MG TAB (DECADRON) PO SCH (19:50)
[2020-07-10] MEDS ORDERED: VANCOMYCIN 1 GM/NS 250 ML IVPB IV SCH ×2 (21:00)
[2020-07-10] MEDS ORDERED: VANCOMYCIN 500 MG/VIAL IV ONE (21:10)
[2020-07-10] MEDS ORDERED: VANCOMYCIN 750 MG/VIAL IV ONE (21:10)
[2020-07-10] MEDS ORDERED: VANCOMYCIN 1000 MG/VIAL ONE (21:10)
[2020-07-10] MEDS ORDERED: NS (IVPB) 500 ML ONE (21:14)
--- NOTE | 2020-07-10 21:30 | NUR ---
PT SPOKE WITH DAUGHTER VIKAS VIA TELEPHONE
[2020-07-10] MEDS ORDERED: VANCOMYCIN 1250 MG/NS 250 ML IVPB IV SCH ×2 (22:00)
[2020-07-11 04:00] VITALS: BP 115/80
[2020-07-11] MEDS: RT-ALBUTEROL INHALER HFA (VENTOLIN HFA) 18 GM IH SCH ×4 (04:11→19:57)
--- NOTE | 2020-07-11 05:00 | NUR ---
PT REFUSED TO HAVE LABS DRAWN. REFUSED TO ATHLETICS TEACHER ET AGAIN WITH THIS RN SPOKE WITH HIM.
[2020-07-11 07:30] VITALS: BP 125/89
[2020-07-11] MEDS: PANTOPRAZOLE 40 MG (PROTONIX) TAB PO SCH (08:30)
[2020-07-11] MEDS: LACTOBACILLUS ACIDOPHILUS (PROBIOTIC) CAPSULE PO SCH ×2 (08:30→21:28)
[2020-07-11] MEDS: CHLORHEXIDINE 0.12% SOLN 15 ML (PERIDEX) UDC PO SCH ×2 (08:31→21:28)
[2020-07-11] MEDS: POT PHOS/NA PHOS (K-PHOS NEUTRAL) PO SCH ×2 (08:31→21:28)
[2020-07-11] MEDS: VANCOMYCIN 1250 MG/NS 250 ML IVPB IV SCH ×4 (08:41→21:27)
[2020-07-11 09:31] LABS: ALANINE AMINOTRANSFERASE 18 U/L (0-55); ALBUMIN 3.3 GM/DL (3.2-4.5); ALKALINE PHOSPHATASE 65 U/L (40-136); BILIRUBIN,TOTAL 0.5 MG/DL (0.1-1.0); BUN/CREATININE RATIO 32; CALCIUM 8.2 MG/DL (8.5-10.1); CARBON DIOXIDE 17 MMOL/L (21-32); CHLORIDE 107 MMOL/L (98-107); CREATININE SERUM 0.87 MG/DL (0.60-1.30); GFR ESTIMATED > 60; GLUCOSE 132 MG/DL (70-105); MAGNESIUM 2.1 MG/DL (1.6-2.4); PHOSPHORUS 2.9 MG/DL (2.3-4.7); SODIUM 134 MMOL/L (135-145); TOTAL PROTEIN 7.3 GM/DL (6.4-8.2)
[2020-07-11 09:35] LABS: POTASSIUM 5.1 MMOL/L (3.6-5.0)
--- NOTE | 2020-07-11 12:06 | Progress Note - Hospitalist ---
Subjective HPI/CC On Admission Date Seen by Provider: Jul 11, 2020 Time Seen by Provider: 12:01 Pt is a 74yoCM with a PMH of TBI, dementia, HTN, CHF, NIDDMII who presented to the ER due to shortness of breath and known COVID19 diagnosis. He is unable to provice me any history but ER note reveals that he was hypoxic on arrival. Overn ight he required 10lpm oxi-mask but has been able to be titrated down to 2lpm NC this morining. He has no complaints to me. I attempted to call his daughter under the phone number listed in our chart but was unable to connect with her. Subjective/Events-last exam Pt reports doing well. No complaints at this time. States he is feeling much better. Objective Exam Vital Signs Vital Signs Date Time Temp Pulse Resp B/P (MAP) Pulse Ox O2 Delivery O2 Flow Rate FiO2 07/11/20 07:30 36.4 64 15 125/89 (101) 98 Vapotherm 40.00 80.00 07/10/20 21:18 90 Capillary Refill : Less Than 3 SecondsLess Than 3 Seconds General Appearance: No Apparent Distress, WD/WN Respiratory: Decreased Breath Sounds; No Rhonci, No Wheezing; Other (on vapotherm) Cardiovascular: Regular Rate, Rhythm, No Murmur Gastrointestinal: Normal Bowel Sounds, Non Tender, Soft Neurologic/Psychiatric: Alert, Oriented x3 (oriented to major details) Results/Procedures Lab Laboratory Tests 07/11/20 09:05 Patient resulted labs reviewed. Imaging: Reviewed Imaging Report Assessment/Plan Assessment and Plan Assess & Plan/Chief Complaint Acute hypoxic respiratory failure due to COVID19 Stable on Vapotherm, I decreased to 40lpm at 70% while at bedside. sats remained 93%. Continue remdesivir Continue decadron s/p 1 unit CP MAT protocol Lovenox IS Bacteruria No symptoms of UTI and growing mixed jazzy and staph aureus Covered with vanc for now DVT ppx: Lovenox Diagnosis/Problems Diagnosis/Problems (1) Acute respiratory failure Qualifiers: Respiratory failure complication: hypoxia Qualified Codes: J96.01 - Acute respiratory failure with hypoxia (2) TBI (traumatic brain injury) (3) Dementia (4) covid 19 and hypoxia (5) Agitation (6) Restrictive lung disease DARLENE LAMBERT MD Jul 11, 2020 12:06
[2020-07-11 12:12] VITALS: BP 136/87
[2020-07-11 15:39] VITALS: BP 110/80
[2020-07-11 15:53] LABS: BASOPHILS % (AUTO) 0 % (0-10); EOSINOPHILS % (AUTO) 0 % (0-10); HEMATOCRIT 40 % (40-54); HEMOGLOBIN 12.4 g/dL (13.3-17.7); LYMPHOCYTES # (AUTO) 1.7 10^3/uL (1.0-4.0); LYMPHOCYTES % (AUTO) 12 % (12-44); MEAN CORPUSCULAR HEMOGLOBIN 28 pg (25-34); MEAN CORPUSCULAR HGB CONC 31 g/dL (32-36); MEAN CORPUSCULAR VOLUME 89 fL (80-99); MEAN PLATELET VOLUME 13.1 fL (9.0-12.2); MONOCYTES # (AUTO) 1.8 10^3/uL (0.0-1.0); MONOCYTES % (AUTO) 13 % (0-12); NEUTROPHILS % (AUTO) 73 % (42-75); PLATELET COUNT 222 10^3/uL (130-400); WHITE BLOOD COUNT 13.7 10^3/uL (4.3-11.0)
[2020-07-11] MEDS: SERTRALINE 50 MG (ZOLOFT) TABLET PO SCH (17:44)
[2020-07-11] MEDS: LACTULOSE SYRUP 10GM/15ML (ENULOSE) 30ML UDC PO PRN (17:44)
[2020-07-11 19:23] VITALS: BP 94/74
[2020-07-11] MEDS: dexAMETHasone 6 MG TAB (DECADRON) PO SCH (21:28)
[2020-07-11] MEDS: ENOXAPARIN 40 MG/0.4 ML (LOVENOX) SYR SC SCH (21:28)
[2020-07-11 23:59] VITALS: BP 105/92
[2020-07-12] VITALS (8 sets, daily range): BP systolic 104–126; BP diastolic 74–92
[2020-07-12] MEDS: RT-ALBUTEROL INHALER HFA (VENTOLIN HFA) 18 GM IH SCH ×4 (02:00→21:42)
[2020-07-12 04:08] LABS: BASOPHILS % (AUTO) 0 % (0-10)
[2020-07-12 04:10] LABS: EOSINOPHILS % (AUTO) 0 % (0-10); HEMATOCRIT 39 % (40-54); HEMOGLOBIN 12.1 g/dL (13.3-17.7); LYMPHOCYTES % (AUTO) 7 % (12-44); MEAN CORPUSCULAR HEMOGLOBIN 27 pg (25-34); MEAN CORPUSCULAR HGB CONC 31 g/dL (32-36); MEAN CORPUSCULAR VOLUME 88 fL (80-99); MEAN PLATELET VOLUME 13.3 fL (9.0-12.2); MONOCYTES # (AUTO) 1.1 10^3/uL (0.0-1.0); MONOCYTES % (AUTO) 8 % (0-12); NEUTROPHILS # (AUTO) 10.6 10^3/uL (1.8-7.8); NEUTROPHILS % (AUTO) 82 % (42-75); PLATELET COUNT 238 10^3/uL (130-400)
[2020-07-12 04:25] LABS: CHLORIDE 107 MMOL/L (98-107); POTASSIUM 4.9 MMOL/L (3.6-5.0); SODIUM 137 MMOL/L (135-145)
[2020-07-12 04:26] LABS: CALCIUM 7.9 MG/DL (8.5-10.1)
[2020-07-12 04:27] LABS: GLUCOSE 133 MG/DL (70-105)
[2020-07-12 04:28] LABS: CARBON DIOXIDE 21 MMOL/L (21-32)
[2020-07-12 04:30] LABS: PHOSPHORUS 3.3 MG/DL (2.3-4.7)
[2020-07-12 04:31] LABS: CREATININE SERUM 0.92 MG/DL (0.60-1.30); GFR ESTIMATED > 60
[2020-07-12 04:32] LABS: BUN/CREATININE RATIO 30
[2020-07-12 04:33] LABS: MAGNESIUM 2.3 MG/DL (1.6-2.4)
--- NOTE | 2020-07-12 06:24 | Pulmonary Progress Note ---
Subjective Time Seen by a Provider: 07:54 Subjective/Events-last exam Pt is requiring 50% Vapotherm. Sepsis Event Evaluation Height, Weight, BMI Height: '11." Weight: 240lbs. oz. 108.946192do; 36.89 BMI Method:Stated Exam Exam Vital Signs Date Time Temp Pulse Resp B/P (MAP) Pulse Ox O2 Delivery O2 Flow Rate FiO2 07/12/20 04:06 35.4 66 16 112/84 (93) 94 Vapotherm 30.00 60.00 07/12/20 02:01 96 Vapotherm 30.00 50 07/12/20 01:00 71 07/12/20 00:01 35.5 73 18 105/92 (96) 94 Vapotherm 30.00 60.00 07/11/20 23:59 35.5 73 18 105/92 (96) 94 Vapotherm 30.00 60.00 07/11/20 22:15 96 Vapotherm 30.00 55 07/11/20 20:45 93 Vapotherm 30.00 55 07/11/20 19:57 93 Vapotherm 30.00 55 07/11/20 19:23 36.8 73 18 94/74 (81) 95 Vapotherm 30.00 60.00 07/11/20 19:00 72 07/11/20 15:39 35.8 70 20 110/80 (90) 98 Vapotherm 40.00 70.00 07/11/20 12:14 64 07/11/20 12:12 36.5 69 16 136/87 (103) 97 Vapotherm 40.00 80.00 07/11/20 08:00 95 Vapotherm 40.00 90 07/11/20 07:30 36.4 64 15 125/89 (101) 98 Vapotherm 40.00 80.00 07/11/20 07:00 62 I & O 07/12/20 07:00 Intake Total 1722.5 ml Output Total 1350 ml Balance 372.5 ml Height & Weight Height: '11.00" Weight: 240lbs. oz. 108.735592lu; 36.89 BMI Method:Stated General Appearance: No Apparent Distress, WD/WN HEENT: Moist Mucous Membranes Neck: Normal Inspection, Supple Respiratory: Decreased Breath Sounds; No Rhonci, No Wheezing; Other (on vapotherm) Cardiovascular: Regular Rate, Rhythm, No Murmur Capillary Refill: Less Than 3 Seconds Extremity: No Calf Tenderness, Pedal Edema Neurologic/Psychiatric: Alert, Oriented x3 (oriented to major details) Skin: Normal Color, Warm/Dry Results Lab Laboratory Tests 07/11/20 09:05 07/11/20 15:40 07/12/20 03:20 Assessment/Plan Assessment/Plan Acute hypoxic respiratory failure due to COVID19 Titrate Vapotherm down Continue remdesivir -Give Lasix 40mg IV x 1 -Repeat PCT Continue decadron s/p 1 unit CP MAT protocol Lovenox IS Bacteruria No symptoms of UTI and growing mixed jazzy and staph aureus Continue vanc for now DVT ppx: Lovenox SIVAN PEREZ DO Jul 12, 2020 06:24
[2020-07-12] MEDS ORDERED: FUROSEMIDE 40 MG/4 ML INJ (LASIX) IVP NR (08:00)
[2020-07-12] MEDS: PANTOPRAZOLE 40 MG (PROTONIX) TAB PO SCH (08:40)
[2020-07-12] MEDS: CHLORHEXIDINE 0.12% SOLN 15 ML (PERIDEX) UDC PO SCH ×2 (08:40→21:38)
[2020-07-12] MEDS: LACTOBACILLUS ACIDOPHILUS (PROBIOTIC) CAPSULE PO SCH ×2 (08:41→21:37)
[2020-07-12] MEDS: POT PHOS/NA PHOS (K-PHOS NEUTRAL) PO SCH ×2 (08:41→21:37)
[2020-07-12] MEDS ORDERED: TROUGH ORDER-PHARMACY XX NR (08:45)
--- NOTE | 2020-07-12 10:00 | NUR ---
BECAME VERY CRANKY AND BELLIGERANT. DAUGHTER CALLED AND AFTER HE TALKED TO HER, HE BECAME CALM AGAIN.
[2020-07-12] MEDS: VANCOMYCIN 1250 MG/NS 250 ML IVPB IV SCH ×4 (10:27→21:38)
[2020-07-12] MEDS: LACTULOSE SYRUP 10GM/15ML (ENULOSE) 30ML UDC PO PRN (13:26)
--- NOTE | 2020-07-12 13:31 | Physical Therapy Daily Note ---
PT Daily Note-Current Subjective Patient reluctantly agrees to PT. Does become increasingly agitated with request to sit EOB. Mental Status Patient Orientation: Confused Attachments: Oxygen (vapotherm), Mason Catheter Transfers SCALE: Activities may be completed with or without assistive devices. 8-Foloxfarac-gqlnswh completes the activity by him/herself with no assistance from a helper. 5-Set-up or Clean-up Assistance-helper sets up or cleans up; patient completes activity. [place] assists only prior to or following the activity. 4-Supervision or Touching Assistance-helper provides verbal cues and/or touching/steadying and/or contact guard assistance as patient completes activity. Assistance may be provided throughout the activity or intermittently. 3-Partial/Moderate Assistance-helper does LESS THAN HALF the effort. [place] lifts, holds or supports trunk or limbs, but provides less than half the effort. 2-Substantial/Maximal Assistance-helper does MORE THAN HALF the effort. [place] lifts or holds trunk or limbs and provides more than half the effort. 8-Yamsdcwfc-neawpo does ALL the effort. Patient does none of the effort to co mplete the activity. Or, the assistance of 2 or more helpers is required for the patient to complete the activity. If activity was not attempted, code reason: 7-Patient Refused. 9-Not Applicable-not attempted and the patient did not perform the activity before the current illness, exacerbation or injury. 10-Not Attempted due to Environmental Limitations-(lack of equipment, weather restraints, etc.). 88-Not Attempted due to Medical Conditions or Safety Concerns. Sit to Lying (QC): 2 Lying to Sitting/Side of Bed(Q: 2 patient able to assist with up in bed repositioning with use of head rail and PT assist Gait Training Does the Patient Walk?: No and Walking Goal NOT indicated Exercises Supine Ex: Ankle pumps, Heel Slides, Straight leg raise, Hip abd/add Supine Reps: 10 (ataxic left LE and UE) Assessment Patient tolerates minimal activity due to noncompliance with activity. PT to increase activity as tolerated by patient. PT Penitentiary Goals Penitentiary Goals PT Penitentiary Goals Time Frame: Jul 16, 2020 Roll Left & Right (QC): 3 Sit to Lying (QC): 3 Lying-Sitting on Side/Bed(QC): 3 Sit to Stand (QC): 3 Chair/Iwj-xe-Ubdhz Xfer(QC): 3 PT Plan Treatment/Plan Treatment Plan: Continue Plan of Care Treatment Plan: Bed Mobility, Education, Functional Activity Mallory, Functional Strength, Gait, Safety, Therapeutic Exercise, Transfers Treatment Duration: Jul 16, 2020 Frequency: 5 times per week Estimated Hrs Per Day: .25 hour per day Patient and/or Family Agrees t: Yes Time/GCodes Time In: 1143 Time Out: 1155 Total Billed Treatment Time: 12 Total Billed Treatment 1 visit EX 12 min XAVI MENDEZ PT Jul 12, 2020 13:31
[2020-07-12] MEDS ORDERED: polyethylene glycoL POWDER 17 GM (MIRALAX) PACK PO PRN (14:15)
[2020-07-12] MEDS ORDERED: BISACODYL 10 MG SUPP (DULCOLAX) PR PRN (14:15)
--- NOTE | 2020-07-12 15:00 | NUR ---
NO BM X 4 DAYS. AGREED TO LACTULOSE SYRUP WITH ENCOURAGEMENT. REFUSED DULCOLAX SUPPOSITORY. "I'LL GO ON MY OWN".
--- NOTE | 2020-07-12 15:23 | Occupational Ther Daily Note ---
OT Current Status-Daily Note Subjective No pain reported. Mental Status/Objective Patient Orientation: Confused Attachments: Oxygen ADL-Treatment Therapy Code Descriptions/Definitions Functional [place] Measure: 0=Not Assessed/NA 4=Minimal Assistance 1=Total Assistance 5=Supervision or Setup 2=Maximal Assistance 6=Modified [place] 3=Moderate Assistance 7=Complete IndependenceSCALE: Activities may be completed with or without assistive devices. 7-Msvccggzas-nvvfuzc completes the activity by him/herself with no assistance from a helper. 5-Set-up or Clean-up Assistance-helper sets up or cleans up; patient completes activity. [place] assists only prior to or following the activity. 4-Supervision or Touching Assistance-helper provides verbal cues and/or touching/steadying and/or contact guard assistance as patient completes activity. Assistance may be provided throughout the activity or intermittently. 3-Partial/Moderate Assistance-helper does LESS THAN HALF the effort. [place] lifts, holds or supports trunk or limbs, but provides less than half the effort. 2-Substantial/Maximal Assistance-helper does MORE THAN HALF the effort. [place] lifts or holds trunk or limbs and provides more than half the effort. 2-Kcnplwwig-zllwpu does ALL the effort. Patient does none of the effort to complete the activity. Or, the assistance of 2 or more helpers is required for the patient to complete the activity. If activity was not attempted, code reason: 7-Patient Refused. 9-Not Applicable-not attempted and the patient did not perform the activity before the current illness, exacerbation or injury. 10-Not Attempted due to Environmental Limitations-(lack of equipment, weather restraints, etc.). 88-Not Attempted due to Medical Conditions or Safety Concerns. Other Treatment OT attempted treatment with pt. Pt. able to complete 3 bilateral UE exercises x 10 reps each, actively, for increased UE strength. Pt. indicates he would like to get to recliner. Nursing in room and okay with pt. trying. Pt. on vapotherm, and sats at 90-88% due to pt. moving nasal cannula and finger monitor. OT begins process of having pt. transfer to side of bed. Pt. changes his mind and states that he doesn't want to get up. Moves legs back into bed. Pt. becomes agitated at vapotherm nasal cannula, and removes it. When he is prompted to put it back on, he becomes even more agitated. Nursing in room and witnesses pt. Pt. yells obscenities and refuses to put oxygen back on. Nursing assessing pt. and attempting to call daughter. Nursing okay for OT to leave room, as pt. has become more calm, but continues to refuse nasal cannula. Education OT Patient Education: Correct positioning, Exercise program, Purpose of tx/functional activities, Reviewed precautions, Rehab process, Safety issues Teaching Recipient: Patient Teaching Methods: Demonstration, Discussion Response to Teaching: Unable to Return Demonstration, Unable to Comprehend OT Short Term Goals Short Term Goals Time Frame: Jul 15, 2020 Eatin Oral hygiene: 3 OT Twist Maker Goals Twist Maker Goals Eating (QC): 4 Oral Hygiene (QC): 4 Toileting Hygiene (QC): 3 Upper Body Dressing (QC): 4 Additional Goals: 1-Demonstrate ADL Tasks, 2-Verbalize Understanding, 3- ImproveStrength/Mlalory 1=Demonstrate adherence to instructed precautions during ADL tasks. 2=Patient will verbalize/demonstrate understanding of assistive devices/modifications for ADL. 3=Patient will improve strength/tolerance for activity to enable patient to perform ADL's. OT Education/Plan Problem List/Assessment Assessment: Decreased Activ Tolerance, Decreased Safety Aware, Decreased UE Strength, Dependent Transfers, Impaired Bed Mobility, Impaired Cognition, Impaired I ADL's, Impaired Self-Care Skills Discharge Recommendations Plan/Recommendations: Continue POC Therapy Discharge Recommendati: 24 Hour Supervision Treatment Plan/Plan of Care Treatment,Training & Education: Yes Patient would benefit from OT for education, treatment and training to promote independence in ADL's, mobility, safety and/or upper extremity function for ADL's. Plan of Care: ADL Retraining, Functional Mobility, UE Funct Exercise/Act Treatment Duration: Jul 22, 2020 Frequency: 5 times per week Estimated Hrs Per Day: .25 hour per day Agreement: Yes Rehab Potential: Guarded Time/GCodes Start Time: 13:20 Stop Time: 13:37 Total Time Billed (hr/min): 17 Billed Treatment Time 1, Ex LAVON GODWIN OT Jul 12, 2020 15:23
[2020-07-12] MEDS: SERTRALINE 50 MG (ZOLOFT) TABLET PO SCH (17:30)
[2020-07-12] MEDS: SENNOSIDES 8.6 MG (SENOKOT) TAB PO SCH (21:37)
[2020-07-12] MEDS: dexAMETHasone 6 MG TAB (DECADRON) PO SCH (21:37)
[2020-07-12] MEDS: DOCUSATE SODIUM 100 MG (COLACE) CAP PO SCH (21:37)
[2020-07-12] MEDS: ENOXAPARIN 40 MG/0.4 ML (LOVENOX) SYR SC SCH (21:38)
[2020-07-13] VITALS: BP 108/71
[2020-07-13] MEDS: RT-ALBUTEROL INHALER HFA (VENTOLIN HFA) 18 GM IH SCH ×4 (02:18→21:12)
[2020-07-13 04:00] VITALS: BP 104/63
[2020-07-13 04:05] LABS: BASOPHILS # (AUTO) 0.1 10^3/uL (0.0-0.1); BASOPHILS % (AUTO) 0 % (0-10); EOSINOPHILS % (AUTO) 0 % (0-10); HEMATOCRIT 40 % (40-54); HEMOGLOBIN 12.7 g/dL (13.3-17.7); LYMPHOCYTES # (AUTO) 1.1 10^3/uL (1.0-4.0); LYMPHOCYTES % (AUTO) 8 % (12-44); MEAN CORPUSCULAR HEMOGLOBIN 28 pg (25-34); MEAN CORPUSCULAR HGB CONC 32 g/dL (32-36); MEAN CORPUSCULAR VOLUME 89 fL (80-99); MEAN PLATELET VOLUME 12.7 fL (9.0-12.2); MONOCYTES # (AUTO) 1.3 10^3/uL (0.0-1.0); MONOCYTES % (AUTO) 9 % (0-12); NEUTROPHILS # (AUTO) 11.6 10^3/uL (1.8-7.8); NEUTROPHILS % (AUTO) 81 % (42-75); PLATELET COUNT 292 10^3/uL (130-400); WHITE BLOOD COUNT 14.4 10^3/uL (4.3-11.0)
[2020-07-13 04:11] LABS: CHLORIDE 104 MMOL/L (98-107); POTASSIUM 4.3 MMOL/L (3.6-5.0); SODIUM 136 MMOL/L (135-145)
[2020-07-13 04:13] LABS: CALCIUM 8.2 MG/DL (8.5-10.1); GLUCOSE 138 MG/DL (70-105)
[2020-07-13 04:15] LABS: CARBON DIOXIDE 22 MMOL/L (21-32)
[2020-07-13 04:17] LABS: CREATININE SERUM 1.16 MG/DL (0.60-1.30); GFR ESTIMATED > 60; PHOSPHORUS 3.5 MG/DL (2.3-4.7)
[2020-07-13 04:18] LABS: BUN/CREATININE RATIO 28
[2020-07-13 04:19] LABS: MAGNESIUM 2.2 MG/DL (1.6-2.4)
[2020-07-13 08:22] VITALS: BP 116/82
[2020-07-13] MEDS ORDERED: TROUGH ORDER-PHARMACY XX NR (08:30)
[2020-07-13] MEDS: POT PHOS/NA PHOS (K-PHOS NEUTRAL) PO SCH ×2 (08:59→22:37)
[2020-07-13] MEDS: PANTOPRAZOLE 40 MG (PROTONIX) TAB PO SCH (08:59)
[2020-07-13] MEDS: SENNOSIDES 8.6 MG (SENOKOT) TAB PO SCH ×3 (08:59→22:36)
[2020-07-13] MEDS: CHLORHEXIDINE 0.12% SOLN 15 ML (PERIDEX) UDC PO SCH ×2 (08:59→22:37)
[2020-07-13] MEDS: LACTOBACILLUS ACIDOPHILUS (PROBIOTIC) CAPSULE PO SCH ×2 (08:59→22:36)
[2020-07-13] MEDS: DOCUSATE SODIUM 100 MG (COLACE) CAP PO SCH ×3 (08:59→22:37)
[2020-07-13] MEDS: VANCOMYCIN 1250 MG/NS 250 ML IVPB IV SCH ×2 (09:03)
--- NOTE | 2020-07-13 10:35 | NUR ---
Patient to room 433, with all belongings. Patient oriented to room and call light. Report given to Maria Guadalupe TRINIDAD.
--- NOTE | 2020-07-13 10:37 | NUR ---
REPORT RECEIVED FROM [employer] PROFESSOR JOHNNY. PATIENT TRANSPORTED TO ROOM 433 VIA BED UNDER COVID PRECAUTIONS. PATIENT SETTLED IN ROOM, DENIES ANY NEEDS AT THIS TIME. WILL CONTINUE TO MONITOR.
[2020-07-13 12:00] VITALS: BP 106/61
--- NOTE | 2020-07-13 12:05 | Physical Therapy Daily Note ---
PT Daily Note-Current Subjective Patient declined PT but did perform exercises and repositioning. Mental Status Patient Orientation: Confused Attachments: Oxygen, [place] Catheter Transfers SCALE: Activities may be completed with or without assistive devices. 1-Qhbgyoxgpw-vvubdbd completes the activity by him/herself with no assistance from a helper. 5-Set-up or Clean-up Assistance-helper sets up or cleans up; patient completes activity. [place] assists only prior to or following the activity. 4-Supervision or Touching Assistance-helper provides verbal cues and/or touching/steadying and/or contact guard assistance as patient completes activity. Assistance may be provided throughout the activity or intermittently. 3-Partial/Moderate Assistance-helper does LESS THAN HALF the effort. [place] lifts, holds or supports trunk or limbs, but provides less than half the effort. 2-Substantial/Maximal Assistance-helper does MORE THAN HALF the effort. [place] lifts or holds trunk or limbs and provides more than half the effort. 2-Fbbydxeda-yhpowl does ALL the effort. Patient does none of the effort to complete the activity. Or, the assistance of 2 or more helpers is required for the patient to complete the activity. If activity was not attempted, code reason: 7-Patient Refused. 9-Not Applicable-not attempted and the patient did not perform the activity before the current illness, exacerbation or injury. 10-Not Attempted due to Environmental Limitations-(lack of equipment, weather restraints, etc.). 88-Not Attempted due to Medical Conditions or Safety Concerns. Roll Left & Right (QC): 3 (patient adamantly declined sitting EOB or OOB activity and becomes very agitated and aggressive) Exercises Supine Ex: Ankle pumps, Quad Set, Heel Slides, Straight leg raise Supine Reps: 12 (AAROM (ataxic movement left more than right but both)) Assessment Patient will require [place] lift for all transferred due to refusal to perform EOB or OOB activity and weakness. PT Residential Sales Rep Goals Residential Sales Rep Goals PT Residential Sales Rep Goals Time Frame: Jul 16, 2020 Roll Left & Right (QC): 3 Sit to Lying (QC): 3 Lying-Sitting on Side/Bed(QC): 3 Sit to Stand (QC): 3 Chair/Bun-jn-Qdddt Xfer(QC): 3 PT Plan Treatment/Plan Treatment Plan: Continue Plan of Care Treatment Plan: Bed Mobility, Education, Functional Activity Mallory, Functional Strength, Gait, Safety, Therapeutic Exercise, Transfers Treatment Duration: Jul 16, 2020 Frequency: 5 times per week Estimated Hrs Per Day: .25 hour per day Patient and/or Family Agrees t: Yes Time/GCodes Time In: 1000 Time Out: 1010 Total Billed Treatment Time: 10 Total Billed Treatment 1 visit EX 10 min XAVI MENDEZ PT Jul 13, 2020 12:05
--- NOTE | 2020-07-13 14:16 | Occupational Ther Daily Note ---
OT Current Status-Daily Note Subjective Pt. in bed. No pain reported. Mental Status/Objective Patient Orientation: Person Attachments: Oxygen ADL-Treatment Therapy Code Descriptions/Definitions Functional [place] Measure: 0=Not Assessed/NA 4=Minimal Assistance 1=Total Assistance 5=Supervision or Setup 2=Maximal Assistance 6=Modified [place] 3=Moderate Assistance 7=Complete IndependenceSCALE: Activities may be completed with or without assistive devices. 1-Axhhkmlczi-cdjbksr completes the activity by him/herself with no assistance from a helper. 5-Set-up or Clean-up Assistance-helper sets up or cleans up; patient completes activity. [place] assists only prior to or following the activity. 4-Supervision or Touching Assistance-helper provides verbal cues and/or touching/steadying and/or contact guard assistance as patient completes activity. Assistance may be provided throughout the activity or intermittently. 3-Partial/Moderate Assistance-helper does LESS THAN HALF the effort. [place] lifts, holds or supports trunk or limbs, but provides less than half the effort. 2-Substantial/Maximal Assistance-helper does MORE THAN HALF the effort. [place] lifts or holds trunk or limbs and provides more than half the effort. 0-Zivxrhwml-wdomad does ALL the effort. Patient does none of the effort to complete the activity. Or, the assistance of 2 or more helpers is required for the patient to complete the activity. If activity was not attempted, code reason: 7-Patient Refused. 9-Not Applicable-not attempted and the patient did not perform the activity befo re the current illness, exacerbation or injury. 10-Not Attempted due to Environmental Limitations-(lack of equipment, weather re straints, etc.). 88-Not Attempted due to Medical Conditions or Safety Concerns. Other Treatment Pt. in bed with head slightly elevated. Pt. is in good mood this date. Allows OT to fix oxygen under nose. Pt. participates in bilateral UE active exercises, in all planes, x 4 exercises x 10 reps each. Completes for overall strength. Pt. declines adamantly sitting on side of bed. All needs met in room. paraprofessional aide teacher reports that pt. uses a louisa lift at his nursing facility for mobility. Education OT Patient Education: Correct positioning, Exercise program Teaching Recipient: Patient Response to Teaching: Reinforcement Needed OT Short Term Goals Short Term Goals Time Frame: Jul 15, 2020 Eatin Oral hygiene: 3 OT Custodial Goals Emotional Support Teacher Goals Eating (QC): 4 Oral Hygiene (QC): 4 Toileting Hygiene (QC): 3 Upper Body Dressing (QC): 4 Additional Goals: 1-Demonstrate ADL Tasks, 2-Verbalize Understanding, 3- ImproveStrength/Mallory 1=Demonstrate adherence to instructed precautions during ADL tasks. 2=Patient will verbalize/demonstrate understanding of assistive devices/mo difications for ADL. 3=Patient will improve strength/tolerance for activity to enable patient to perform ADL's. OT Education/Plan Problem List/Assessment Assessment: Decreased Activ Tolerance, Decreased UE Strength, Dependent Transfers, Impaired Bed Mobility, Impaired Cognition, Impaired Funct Balance, Impaired I ADL's, Impaired Self-Care Skills, Restricted Funct UE ROM Discharge Recommendations Plan/Recommendations: Continue POC Therapy Discharge Recommendati: 24 Hour Supervision Treatment Plan/Plan of Care Treatment,Training & Education: Yes Patient would benefit from OT for education, treatment and training to promote independence in ADL's, mobility, safety and/or upper extremity function for ADL's. Plan of Care: ADL Retraining, Functional Mobility, UE Funct Exercise/Act Treatment Duration: Jul 22, 2020 Frequency: 5 times per week Estimated Hrs Per Day: .25 hour per day Agreement: Yes Rehab Potential: Guarded Time/GCodes Start Time: 12:15 Stop Time: 12:25 Total Time Billed (hr/min): 10 Billed Treatment Time 1, Ex LAVON GODWIN OT Jul 13, 2020 14:16
--- NOTE | 2020-07-13 15:03 | NUR ---
"RD ASSESSMENT PMHx: COVID-19; HTN; Crohn's disease; hypercholesterolemia; CKD; hx of bowel resection; PT INTERACTION: Note pt currently in COVID isolation, per chart review. Note all diet information for nutrition follow-up is per Maria Guadalupe TRINIDAD, or per chart review. Maria Guadalupe states current appetite appears good. Note avg PO intake 58% x4d, per chart review. Maria Guadalupe states no issues with n/v/c/d she is aware of. Note last BM was 07/11, and pt currently on bowel regimen of senna BID, per chart review. ABNORMAL NUTRITION-RELATED LAB VALUES LOW: Ca 8.1; alkphos 34; Pro 5.4; HIGH: Cl 112; Est. kcal needs: 0010-9201 kcal | 15-20 kcal/kg Est. Pro needs: 62-78 g Pro | 0.8-1.0 g Pro/kg PES STATEMENT: Inadequate oral intake (NI-2.1) related to loss of appetite, as evidenced by chart review, and avg PO intake 58% x4d. INTERVENTION: Continue with current diet order of Regular diet. Pt may benefit from nutrition supplementation if PO intake declines. Would encourage pt to eat when able. Will continue to follow and reassess as pt needs, intake, and status changes. SMS NOEMY Clemens [phone] cell Addendum: 07/13/20 at [address] NOTE THIS ASSESSMENT FOR WRONG PT S MS NOEMY BARCLAY"
--- NOTE | 2020-07-13 15:11 | NUR ---
"NOTE PREVIOUS RD ASSESSMENT WAS FOR THE WRONG PT. THE FOLLOWING IS FOR MR. MARTINS. RD ASSESSMENT PMHx: HTN; CHF; dementia; TBI; GERD; obstructive bowel; chronic constipation; DM; PT INTERACTION: Note pt is currently in COVID isolation, per chart review. Note all diet information for nutrition follow-up is per Su RN, or per chart review. Su states current appetite appears good. Note avg PO intake 52% x4d, per chart review. Su states no issues with n/v/c/d that she is aware of. Note last BM was 07/09, and pt currently on bowel regimen of colace BID, and senna BID, per chart review. ABNORMAL NUTRITION-RELATED LAB VALUES LOW: Ca 8.2; HIGH: BUN 32; glu 138 Est. kcal needs: 8286-0040 kcal | 15-18 kcal/kg Est. Pro needs: 96-120 g Pro | 0.8-1.0 g Pro/kg PES STATEMENT: Inadequate oral intake (NI-2.1) related to loss of appetite, as evidenced by chart review, and avg PO intake 52% x4d. INTERVENTION: Continue with current diet order of CHO 60g/m 3snack diet, with modification of DYS2 Mechanically Altered consistency. Pt may benefit from nutrition supplementation if PO intake declines. Will continue to follow and reassess as pt needs, intake, and status change. Sangita Jolley, MS RD LD [phone] cell"
[2020-07-13] MEDS: HALOPERIDOL 5 MG/ML (HALDOL) VIAL IM PRN (16:30)
--- NOTE | 2020-07-13 16:57 | NUR ---
NOT ABLE TO OBTAIN VITALS AT 1600. PATIENT AGITATED AND YELLING CALLING ALL STAFF "BITCHES", ETC.
[2020-07-13] MEDS: SERTRALINE 50 MG (ZOLOFT) TABLET PO SCH (18:00)
[2020-07-13 19:29] VITALS: BP 99/60
[2020-07-13] MEDS: ENOXAPARIN 40 MG/0.4 ML (LOVENOX) SYR SC SCH (22:36)
[2020-07-13] MEDS: CEPHALEXIN 250 MG (KEFLEX) CAP PO SCH (22:36)
[2020-07-13] MEDS: dexAMETHasone 6 MG TAB (DECADRON) PO SCH (22:37)
[2020-07-14] VITALS: BP 111/66
[2020-07-14] MEDS: RT-ALBUTEROL INHALER HFA (VENTOLIN HFA) 18 GM IH SCH ×4 (02:02→20:08)
[2020-07-14 04:00] VITALS: BP 105/67
[2020-07-14 05:41] LABS: HEMOGLOBIN 11.9 g/dL (13.3-17.7)
[2020-07-14 05:43] LABS: BASOPHILS % (AUTO) 0 % (0-10); EOSINOPHILS % (AUTO) 0 % (0-10); HEMATOCRIT 38 % (40-54); LYMPHOCYTES # (AUTO) 0.7 10^3/uL (1.0-4.0); LYMPHOCYTES % (AUTO) 5 % (12-44); MEAN CORPUSCULAR HEMOGLOBIN 28 pg (25-34); MEAN CORPUSCULAR HGB CONC 32 g/dL (32-36); MEAN CORPUSCULAR VOLUME 89 fL (80-99); MEAN PLATELET VOLUME 13.5 fL (9.0-12.2); MONOCYTES # (AUTO) 1.3 10^3/uL (0.0-1.0); MONOCYTES % (AUTO) 9 % (0-12); NEUTROPHILS # (AUTO) 12.2 10^3/uL (1.8-7.8); NEUTROPHILS % (AUTO) 83 % (42-75); PLATELET COUNT 261 10^3/uL (130-400); WHITE BLOOD COUNT 14.7 10^3/uL (4.3-11.0)
[2020-07-14 05:56] LABS: CHLORIDE 105 MMOL/L (98-107); POTASSIUM 4.3 MMOL/L (3.6-5.0); SODIUM 137 MMOL/L (135-145)
[2020-07-14 05:58] LABS: CALCIUM 8.1 MG/DL (8.5-10.1); GLUCOSE 140 MG/DL (70-105)
[2020-07-14 06:00] LABS: CARBON DIOXIDE 22 MMOL/L (21-32)
[2020-07-14 06:02] LABS: CREATININE SERUM 1.12 MG/DL (0.60-1.30); GFR ESTIMATED > 60
[2020-07-14 06:03] LABS: BUN/CREATININE RATIO 27
[2020-07-14 06:04] LABS: MAGNESIUM 2.5 MG/DL (1.6-2.4)
[2020-07-14 06:24] LABS: BAND NEUTROPHILS 2 %; LYMPHOCYTES % (MANUAL) 8 %; MONOCYTES % (MANUAL) 6 %; NEUTROPHILS % (MANUAL) 84 %
[2020-07-14 06:25] LABS: RBC MORPH NORMAL
[2020-07-14 08:00] VITALS: BP 104/63
[2020-07-14] MEDS ORDERED: TROUGH ORDER-PHARMACY XX NR (08:00)
[2020-07-14] MEDS: SENNOSIDES 8.6 MG (SENOKOT) TAB PO SCH ×2 (08:43→21:55)
[2020-07-14] MEDS: DOCUSATE SODIUM 100 MG (COLACE) CAP PO SCH ×2 (08:43→21:56)
[2020-07-14] MEDS: CHLORHEXIDINE 0.12% SOLN 15 ML (PERIDEX) UDC PO SCH ×2 (09:45→21:56)
[2020-07-14] MEDS: LACTOBACILLUS ACIDOPHILUS (PROBIOTIC) CAPSULE PO SCH ×2 (09:45→21:56)
[2020-07-14] MEDS: CEPHALEXIN 250 MG (KEFLEX) CAP PO SCH ×2 (09:45→21:56)
[2020-07-14] MEDS: POT PHOS/NA PHOS (K-PHOS NEUTRAL) PO SCH ×2 (09:45→21:56)
[2020-07-14] MEDS: PANTOPRAZOLE 40 MG (PROTONIX) TAB PO SCH (09:45)
--- NOTE | 2020-07-14 10:32 | Physical Therapy Daily Note ---
PT Daily Note-Current Subjective Patient in bed pre tx, declines physical therapy, has no complaints of pain. When encouraged to participate in physical therapy patient states "hell no, im not doing anything today". Patient educated on the importance of participating but he continues to refuse. Patient would like to have help scooting up in the bed. Transfers SCALE: Activities may be completed with or without assistive devices. 6-Ipjfbotzdo-gysorxg completes the activity by him/herself with no assistance from a helper. 5-Set-up or Clean-up Assistance-helper sets up or cleans up; patient completes activity. [place] assists only prior to or following the activity. 4-Supervision or Touching Assistance-helper provides verbal cues and/or touching/steadying and/or contact guard assistance as patient completes activi ty. Assistance may be provided throughout the activity or intermittently. 3-Partial/Moderate Assistance-helper does LESS THAN HALF the effort. [place] lifts, holds or supports trunk or limbs, but provides less than half the effort. 2-Substantial/Maximal Assistance-helper does MORE THAN HALF the effort. [place] lifts or holds trunk or limbs and provides more than half the effort. 5-Dvpadiiuh-wsimbq does ALL the effort. Patient does none of the effort to complete the activity. Or, the assistance of 2 or more helpers is required for the patient to complete the activity. If activity was not attempted, code reason: 7-Patient Refused. 9-Not Applicable-not attempted and the patient did not perform the activity before the current illness, exacerbation or injury. 10-Not Attempted due to Environmental Limitations-(lack of equipment, weather restraints, etc.). 88-Not Attempted due to Medical Conditions or Safety Concerns. Roll Left & Right (QC): 3 Assist patient scooting up in bed, min assist, patient is able to reach up with right arm and also use left leg to scoot up in bed Treatments bed mobility Assessment Current Status: Poor Progress Patient refuses most therapy PT Nursing Home Goals Nursing Home Goals PT Materials Engineer Goals Time Frame: Jul 16, 2020 Roll Left & Right (QC): 3 Sit to Lying (QC): 3 Lying-Sitting on Side/Bed(QC): 3 Sit to Stand (QC): 3 Chair/Nsj-og-Rtiwq Xfer(QC): 3 PT Plan Problem List Problem List: Activity Tolerance, Functional Strength, Safety, Balance, Gait, Transfer, Bed Mobility, ROM Treatment/Plan Treatment Plan: Continue Plan of Care Treatment Plan: Bed Mobility, Education, Functional Activity [place], Functional Strength, Gait, Safety, Therapeutic Exercise, Transfers Treatment Duration: Jul 16, 2020 Frequency: 5 times per week Estimated Hrs Per Day: .25 hour per day Patient and/or Family Agrees t: Yes Safety Risks/Education Patient Education: Correct Positioning, Safety Issues Teaching Recipient: Patient Teaching Methods: Demonstration, Discussion Response to Teaching: Reinforcement Needed Time/GCodes Time In: 0841 Time Out: 0849 Total Billed Treatment Time: 8 Total Billed Treatment 1 visit FA 8' CHRISS KNIGHT PT Jul 14, 2020 10:32
[2020-07-14 12:00] VITALS: BP 116/65
--- NOTE | 2020-07-14 14:06 | Occupational Ther Daily Note ---
OT Current Status-Daily Note Subjective Pt alert in bed, food completed. Pt in good spirits, laughing through session. Pt agrees to complete minimal arm ex after eating/ cleaning up. ADL-Treatment Therapy Code Descriptions/Definitions Functional [place] Measure: 0=Not Assessed/NA 4=Minimal Assistance 1=Total Assistance 5=Supervision or Setup 2=Maximal Assistance 6=Modified [place] 3=Moderate Assistance 7=Complete IndependenceSCALE: Activities may be completed with or without assistive devices. 2-Gqzjnomlvc-xosuhla completes the activity by him/herself with no assistance from a helper. 5-Set-up or Clean-up Assistance-helper sets up or cleans up; patient completes activity. [place] assists only prior to or following the activity. 4-Supervision or Touching Assistance-helper provides verbal cues and/or touching/steadying and/or contact guard assistance as patient completes activity. Assistance may be provided throughout the activity or intermittently. 3-Partial/Moderate Assistance-helper does LESS THAN HALF the effort. [place] lifts, holds or supports trunk or limbs, but provides less than half the effort. 2-Substantial/Maximal Assistance-helper does MORE THAN HALF the effort. [place] lifts or holds trunk or limbs and provides more than half the effort. 0-Nppzfhbex-lgwycs does ALL the effort. Patient does none of the effort to complete the activity. Or, the assistance of 2 or more helpers is required for the patient to complete the activity. If activity was not attempted, code reason: 7-Patient Refused. 9-Not Applicable-not attempted and the patient did not perform the activity before the current illness, exacerbation or injury. 10-Not Attempted due to Environmental Limitations-(lack of equipment, weather restraints, etc.). 88-Not Attempted due to Medical Conditions or Safety Concerns. Eating (QC): 6 Oral Hygiene (QC): 7 Other Treatment Pt completes meal. Pt is shown goody bag left on cabinet, pt requests Reeces. Pt able to open packaging with multiple attempts- decreased coordination. Pt eats/ wipes face with s/u. Pt completes the following exercises against gravity: shoulder flexion, shoulder horizontal abduction, bicep curls. Pt is encouraged to continue to complete these through day. Pt states desire to "get up and go walking." Pt is educated that there is no walker. Pt agrees to get to chair. Pt is uncovered, pt denies getting toward EOB, stating, "Hell no," multiple times. Pt is educated on pt's original request of getting to chair, pt states, "I change my mind a lot." Pt denies needs, call light in reach. Pt remains in bed. Education OT Patient Education: Correct positioning, Exercise program, Home exercise program, Purpose of tx/functional activities, Safety issues Teaching Recipient: Patient Teaching Methods: Demonstration, Discussion Response to Teaching: Verbalize Understanding, Return Demonstration OT Short Term Goals Short Term Goals Time Frame: Jul 15, 2020 Eatin Oral hygiene: 3 OT Alf Goals Security Officers [employer] Guards Goals Eating (QC): 4 Oral Hygiene (QC): 4 Toileting Hygiene (QC): 3 Upper Body Dressing (QC): 4 Additional Goals: 1-Demonstrate ADL Tasks, 2-Verbalize Understanding, 3-ImproveStrength/Malloyr 1=Demonstrate adherence to instructed precautions during ADL tasks. 2=Patient will verbalize/demonstrate understanding of assistive devices/modifications for ADL. 3=Patient will improve strength/tolerance for activity to enable patient to per form ADL's. OT Education/Plan Problem List/Assessment Assessment: Decreased Activ Tolerance, Decreased Safety Aware, Decreased UE Strength, Dependent Transfers, Impaired Bed Mobility, Impaired Cognition, Impair ed Coordination, Impaired Funct Balance, Impaired I ADL's, Impaired Self-Care Skills Discharge Recommendations Plan/Recommendations: Continue POC Therapy Discharge Recommendati: 24 Hour Supervision Treatment Plan/Plan of Care Treatment,Training & Education: Yes Patient would benefit from OT for education, treatment and training to promote independence in ADL's, mobility, safety and/or upper extremity function for ADL's. Plan of Care: ADL Retraining, Functional Mobility, UE Funct Exercise/Act Treatment Duration: Jul 22, 2020 Frequency: 5 times per week Estimated Hrs Per Day: .25 hour per day Agreement: Yes Rehab Potential: Guarded Time/GCodes Start Time: 13:14 Stop Time: 13:22 Total Time Billed (hr/min): 8 Billed Treatment Time 1, EX (8) PARMINDER SHEN OTR Jul 14, 2020 14:06
[2020-07-14 16:00] VITALS: BP 113/73
--- NOTE | 2020-07-14 16:06 | Progress Note - Hospitalist ---
Subjective HPI/CC On Admission Date Seen by Provider: Jul 14, 2020 Time Seen by Provider: 10:45 Pt is a 74yoCM with a PMH of TBI, dementia, HTN, CHF, NIDDMII who presented to the ER due to shortness of breath and known COVID19 diagnosis. He is unable to provice me any history but ER note reveals that he was hypoxic on arrival. Overn ight he required 10lpm oxi-mask but has been able to be titrated down to 2lpm NC this morining. He has no complaints to me. I attempted to call his daughter under the phone number listed in our chart but was unable to connect with her. Subjective/Events-last exam He reports feeling well. He denies trouble breathing. He denies fevers. He has no other complaints or concerns. Objective Exam Vital Signs Vital Signs Date Time Temp Pulse Resp B/P (MAP) Pulse Ox O2 Delivery O2 Flow Rate FiO2 07/14/20 15:06 95 High Flow N/C 7.00 07/14/20 12:00 35.4 85 20 116/65 (82) 07/12/20 10:10 40 Capillary Refill : Less Than 3 SecondsLess Than 3 Seconds General Appearance: No Apparent Distress, Obese Neck: Normal Inspection, Supple Respiratory: Lungs Clear, Normal Breath Sounds, No Respiratory Distress Cardiovascular: Regular Rate, Rhythm, No Edema, No Murmur Gastrointestinal: Normal Bowel Sounds, Non Tender, Soft Extremity: Normal Inspection, Non Tender, No Pedal Edema Neurologic/Psychiatric: Alert, Normal Mood/Affect Skin: Normal Color, Warm/Dry Results/Procedures Lab Laboratory Tests 07/14/20 04:50 Patient resulted labs reviewed. Imaging: Reviewed Imaging Report Assessment/Plan Assessment and Plan Assess & Plan/Chief Complaint Acute respiratory failure due to COVID-19 s/p Decadron s/p Remdesivir s/p convalescent plasma Continue supplemental oxygen, weaning as able Obtain home oxygen study Staph aureus UTI Keflex Obesity Clinically significant, no acute management needs Debility PT/OT Likely return to [facility] tomorrow DVT Prophylaxis: Lovenox Agitation, resolved Anxiety, resolved Diagnosis/Problems Diagnosis/Problems (1) Acute respiratory failure Qualifiers: Respiratory failure complication: hypoxia Qualified Codes: J96.01 - Acute respiratory failure with hypoxia (2) COVID-19 Status: Acute (3) Agitation Status: Resolved Resolution Date/Time: 07/14/20 @ 16:10 (4) Debility Status: Acute MYKEL RIVERA MD Jul 14, 2020 16:06
[2020-07-14] MEDS: SERTRALINE 50 MG (ZOLOFT) TABLET PO SCH (18:02)
[2020-07-14 20:00] VITALS: BP 115/58
[2020-07-14] MEDS: ENOXAPARIN 40 MG/0.4 ML (LOVENOX) SYR SC SCH (21:55)
[2020-07-14] MEDS: ACETAMINOPHEN 500 MG TAB (TYLENOL) PO PRN (21:55)
[2020-07-15] VITALS: BP 147/79
[2020-07-15] MEDS: RT-ALBUTEROL INHALER HFA (VENTOLIN HFA) 18 GM IH SCH ×2 (02:28→08:49)
[2020-07-15 04:00] VITALS: BP 135/77
[2020-07-15 07:12] LABS: BASOPHILS # (AUTO) 0.1 10^3/uL (0.0-0.1); BASOPHILS % (AUTO) 0 % (0-10); EOSINOPHILS # (AUTO) 0.1 10^3/uL (0.0-0.3); EOSINOPHILS % (AUTO) 1 % (0-10); HEMATOCRIT 39 % (40-54); HEMOGLOBIN 12.1 g/dL (13.3-17.7); LYMPHOCYTES # (AUTO) 2.4 10^3/uL (1.0-4.0); LYMPHOCYTES % (AUTO) 17 % (12-44); MEAN CORPUSCULAR HEMOGLOBIN 28 pg (25-34); MEAN CORPUSCULAR HGB CONC 31 g/dL (32-36); MEAN CORPUSCULAR VOLUME 89 fL (80-99); MEAN PLATELET VOLUME 12.9 fL (9.0-12.2); MONOCYTES # (AUTO) 1.7 10^3/uL (0.0-1.0); MONOCYTES % (AUTO) 12 % (0-12); NEUTROPHILS # (AUTO) 9.3 10^3/uL (1.8-7.8); NEUTROPHILS % (AUTO) 67 % (42-75); PLATELET COUNT 288 10^3/uL (130-400); WHITE BLOOD COUNT 13.9 10^3/uL (4.3-11.0)
[2020-07-15 07:39] LABS: BUN/CREATININE RATIO 27; CALCIUM 8.2 MG/DL (8.5-10.1); CARBON DIOXIDE 26 MMOL/L (21-32); CHLORIDE 106 MMOL/L (98-107); CREATININE SERUM 1.05 MG/DL (0.60-1.30); GFR ESTIMATED > 60; GLUCOSE 92 MG/DL (70-105); MAGNESIUM 2.2 MG/DL (1.6-2.4); POTASSIUM 3.8 MMOL/L (3.6-5.0); SODIUM 140 MMOL/L (135-145)
[2020-07-15 08:00] VITALS: BP 124/58
[2020-07-15] MEDS: PANTOPRAZOLE 40 MG (PROTONIX) TAB PO SCH (08:31)
[2020-07-15] MEDS: POT PHOS/NA PHOS (K-PHOS NEUTRAL) PO SCH (08:31)
[2020-07-15] MEDS: DOCUSATE SODIUM 100 MG (COLACE) CAP PO SCH (08:31)
[2020-07-15] MEDS: LACTOBACILLUS ACIDOPHILUS (PROBIOTIC) CAPSULE PO SCH (08:31)
[2020-07-15] MEDS: SENNOSIDES 8.6 MG (SENOKOT) TAB PO SCH (08:32)
[2020-07-15] MEDS: CEPHALEXIN 250 MG (KEFLEX) CAP PO SCH (08:32)
[2020-07-15] MEDS: CHLORHEXIDINE 0.12% SOLN 15 ML (PERIDEX) UDC PO SCH ×2 (08:33→11:28)
--- NOTE | 2020-07-15 11:30 | NUR ---
CM FINALIZED DISCHARGE PLAN: Patient is returning to [facility] today. He continues to be in COVID isolation et is requiring 2LPM via NC continuous at discharge. Spoke with AARON Ambrose at [facility] she reports that they will be able to accept him back today. He will need to transport by EMS d/t his inability to sit up and remain sitting up at this time. EMS was here at the hospital so they were able to take the patient back to [facility] fairly quickly from being notified of need. Family was notified of transfer back to [facility] when they called out to the hospital to check on Bill. I f/u with his sister Maria Guadalupe et she voiced that she was glad that he got to go back to [facility]. She denied any concerns or needs r/t discharge for her brother. Addendum: 07/15/20 at 1443 by SCAR IRBY RN Patient returned to [facility] as residential et was not skilled on d/c.
--- NOTE | 2020-07-15 11:41 | Discharge Summary ---
Discharge Summary Hospital Course Was the Problem List Reviewed?: Yes Problems/Dx: (1) Acute respiratory failure Qualifiers: Qualified Codes: J96.01 - Acute respiratory failure with hypoxia (2) COVID-19 Status: Acute (3) Agitation Status: Resolved (4) Debility Status: Acute Hospital Course Date of Admission: Jul 05, 2020 at 20:26 Admission Diagnosis : Acute respiratory failure due to COVID-19 Family Physician/Provider: Fran Marin Aprn Date of Discharge: 07/15/20 Discharge Diagnosis: Acute respiratory failure due to COVID-19 Hospital Course: Eliel Pickernig (Billy) is a 74-year-old male who was admitted with acute respiratory failure due to COVID-19. He was treated with Decadron, Remdesivir, and convalescent plasma. He required significant amounts of oxygen supplementation. This improved throughout his hospital stay and he was able to be weaned down to only a couple liters of oxygen at the time of discharge. His [place] [facility] should titrate the oxygen to keep his oxygen saturations greater than 90 percent. His course was complicated by a urinary tract infection and he was given a course of Keflex. He should follow-up with his primary care physician in a couple weeks. Labs and Pending Lab Test: Laboratory Tests 07/15/20 06:15: White Blood Count 13.9H, Red Blood Count 4.38, Hemoglobin 12.1L, Hematocrit 39L, Mean Corpuscular Volume 89, Mean Corpuscular Hemoglobin 28, Mean Corpuscular Hemoglobin Concent 31L, Red Cell Distribution Width 17.8H, Platelet Count 288, Mean Platelet Volume 12.9H, Immature Granulocyte % (Auto) 3, Neutrophils (%) (Auto) 67, Lymphocytes (%) (Auto) 17, Monocytes (%) (Auto) 12, Eosinophils (%) (Auto) 1, Basophils (%) (Auto) 0, Neutrophils # (Auto) 9.3H, Lymphocytes # (Auto) 2.4, Monocytes # (Auto) 1.7H, Eosinophils # (Auto) 0.1, Basophils # (Auto) 0.1, Immature Granulocyte # (Auto) 0.4H, Sodium Level 140, Potassium Level 3.8, Chloride Level 106, Carbon Dioxide Level 26, Anion Gap 8, Blood Urea Nitrogen 28H, Creatinine 1.05, Estimat Glomerular Filtration Rate > 60, BUN/Creatinine Ratio 27, Glucose Level 92, Calcium Level 8.2L, Phosphorus Level 3.0, Magnesium Level 2.2 Microbiology 07/09/20 Urine Culture - Final, Complete Staphylococcus aureus Aerococcus urinae 07/08/20 MRSA Screen - Final, Complete MRSA not isolated 07/05/20 Blood Culture - Final, Complete Staphylococcus capitis See Comments Home Meds Active Reported Lactulose 20 Gm/30 Ml Solution 30 Ml PO Q12H PRN Docusate Sodium 100 Mg Tablet 100 Mg PO DAILY PRN Loratadine 10 Mg Tablet 10 Mg PO DAILY PRN Artificial Tears (Carboxymethylcellulose Sodium) 15 Ml Drops 2 Drops OU Q4H PRN Zofran (Ondansetron HCl) 4 Mg Tab 4 Mg PO Q4H PRN Sertraline HCl 50 Mg Tablet 75 Mg PO 1800 TAKES 1 & (50MG) TABS Phos-Nak Packet (Phosphate) 1 Ea Packet 1 Ea PO BID Lactobacillus Tablet (L. Acidophilus/L.bulgaricus) 1 Each Tablet 1 Each PO BID Chlorhexidine Gluconate 473 Ml Mouthwash 15 Ml PO BID SWISH AND SPIT Tylenol Extra Strength (Acetaminophen) 500 Mg Tablet 500 Mg PO Q6H PRN Assessment/Pt Instructions Take medications as prescribed. Follow up with your PCP in a couple weeks. Return with worsening shortness of breath or if you feel like you are getting worse. Discharge Planning: <30 minutes discharge planning Discharge Instructions Discharge Diet: No Restrictions Activity as Tolerated: Yes Orders & Referrals Oxygen continuous-2 L, titrate to keep O2 >90% Discharge Physical Examination Vital Signs Vital Signs Date Time Temp Pulse Resp B/P (MAP) Pulse Ox O2 Delivery O2 Flow Rate FiO2 07/15/20 08:50 95 High Flow N/C 2.00 07/15/20 08:00 36.6 79 20 124/58 (80) 07/12/20 10:10 40 General Appearance: No Apparent Distress, Obese Respiratory: Lungs Clear, Normal Breath Sounds, No Respiratory Distress Cardiovascular: Regular Rate, Rhythm, No Edema, No Murmur Gastrointestinal: Normal Bowel Sounds, Non Tender, Soft Extremity: Normal Inspection, Non Tender, No Pedal Edema Skin: Normal Color, Warm/Dry Neurologic/Psychiatric: Alert, Oriented x3, No Motor/Sensory Deficits, Normal M ood/Affect Allergies: Coded Allergies: No Known Drug Allergies (Unverified , 10/26/18) Copy Copies To 1: JESÚS CALABRESE MD Discharge Summary Date of Admission Jul 05, 2020 at 20:26 Date of Discharge Discharge Date: Jul 15, 2020 Discharge Time: 11:40 Admission Diagnosis Acute hypoxic respiratory failure due to COVID19 Discharge Diagnosis Acute respiratory failure due to COVID-19 (1) Acute respiratory failure Qualifiers: Qualified Codes: J96.01 - Acute respiratory failure with hypoxia (2) COVID-19 Status: Acute (3) Agitation Status: Resolved (4) Debility Status: Acute MYKEL RIVERA MD Jul 15, 2020 11:41
[2020-07-15] MEDS ORDERED: CEPH-507 PO (11:42)
[2020-07-15 12:40] VITALS: BP 124/58
== END 2020-07-15 12:00 | DRG 177 ==
LOC: EDUNIT# 19:04 → ER 19:05 → 4TH 20:26 → UNDOADMIN 20:26 → 4TH 22:26 → ICU 07-08 16:36 → CSD 07-09 18:19 → 4TH 07-13 10:31
PROVIDERS: ADMIT Internal Medicine; ATTEND Internal Medicine
PROC: XW033E5 Introduction of Remdesivir Anti-infective into Peripheral Vein, Percutaneous Approach, New Technology Group 5 (ICD-10-PCS; principal; 2020-07-06)
DX: U07.1 COVID-19 (principal); J96.01 Acute respiratory failure with hypoxia; I09.81 Rheumatic heart failure; N39.0 Urinary tract infection, site not specified; I50.9 Heart failure, unspecified; I10 Essential (primary) hypertension; J44.9 Chronic obstructive pulmonary disease, unspecified; E11.9 Type 2 diabetes mellitus without complications; F03.90 Unspecified dementia, unspecified severity, without behavioral disturbance, psychotic disturbance, mood disturbance, and anxiety; R45.1 Restlessness and agitation; E66.9 Obesity, unspecified; K21.9 Gastro-esophageal reflux disease without esophagitis; K59.09 Other constipation; M19.91 Primary osteoarthritis, unspecified site; G47.9 Sleep disorder, unspecified; F32.9 Major depressive disorder, single episode, unspecified; Z68.36 Body mass index [BMI] 36.0-36.9, adult; Z87.891 Personal history of nicotine dependence; Z87.820 Personal history of traumatic brain injury; Z86.718 Personal history of other venous thrombosis and embolism; B95.61 Methicillin susceptible Staphylococcus aureus infection as the cause of diseases classified elsewhere; Z73.0 Burn-out
CPT/HCPCS: 36415; 71045; 80048; 80053; 80202; 81000; 82805; 83605; 83735; 83880; 84100; 84145; 85007; 85025; 85027; 85379; 87040; 87077; 87081; 87088; 87186; 94640; 94664; 94760; 96372; 96374; 96376